=== PATIENT | male | born 1975 ===

== ENCOUNTER → 2020-04-10 14:27 | Outpatient (BNVA) | payer MEDICARE, MEDICAID, SELFPAY | PROVIDERS: Visit Provider Internal Medicine | DX: F11.99 Opioid use, unspecified with unspecified opioid-induced disorder (principal) | CPT/HCPCS: 96372; 99212; Q9991 ==

== ENCOUNTER → 2020-05-08 14:09 | Outpatient (BNVA) | payer MEDICARE, MEDICAID, SELFPAY | PROVIDERS: Visit Provider Internal Medicine | DX: F11.99 Opioid use, unspecified with unspecified opioid-induced disorder (principal) | CPT/HCPCS: 80305; 96372; 99211; Q9991 ==

== ENCOUNTER → 2020-05-27 15:20 | Outpatient (BNVA) | payer MEDICARE, MEDICAID, SELFPAY | PROVIDERS: Visit Provider Internal Medicine | DX: F11.99 Opioid use, unspecified with unspecified opioid-induced disorder (principal) | CPT/HCPCS: 80305; 96372; 99211; Q9992 ==

== ENCOUNTER → 2020-06-25 15:33 | Outpatient (BNVA) | payer MEDICARE, MEDICAID, SELFPAY | PROVIDERS: Visit Provider Internal Medicine | DX: F11.99 Opioid use, unspecified with unspecified opioid-induced disorder (principal) | CPT/HCPCS: 80305; 96372; 99211; Q9992 ==

== ENCOUNTER → 2020-07-23 15:22 | Outpatient (BNVA) | payer MEDICARE, MEDICAID, SELFPAY | PROVIDERS: Visit Provider Internal Medicine | DX: F11.99 Opioid use, unspecified with unspecified opioid-induced disorder (principal) | CPT/HCPCS: 80305; 96372; 99212; Q9992 ==

== ENCOUNTER → 2020-08-20 15:49 | Outpatient (BNVA) | payer MEDICARE, MEDICAID, SELFPAY | PROVIDERS: PCP Internal Medicine; Visit Provider Internal Medicine | DX: F11.99 Opioid use, unspecified with unspecified opioid-induced disorder (principal) | CPT/HCPCS: 80305; 96372; 99212; J1885; J2405; J3010; Q9992 ==

== ENCOUNTER 2020-09-17 08:10 | Outpatient (RCR) | payer MEDICARE, MEDICAID, SELFPAY | END 2020-09-25 09:46 | disposition home or self-care (01) | LOC: HO.WCC 08:10 | PROVIDERS: PCP Internal Medicine; Visit Provider Physician Assistant | DX: L84 Corns and callosities (principal); M21.372 Foot drop, left foot | CPT/HCPCS: 99212; Q9992 ==

== ENCOUNTER → 2020-09-17 15:34 | Outpatient (BNVA) | payer MEDICARE, MEDICAID, SELFPAY | PROVIDERS: PCP Internal Medicine; Visit Provider Internal Medicine | DX: F11.21 Opioid dependence, in remission (principal) | CPT/HCPCS: 80305; 96372; 99212; Q9992 ==

== ENCOUNTER → 2020-10-15 15:36 | Outpatient (BNVA) | payer MEDICARE, MEDICAID, SELFPAY | PROVIDERS: Visit Provider Internal Medicine | DX: F11.21 Opioid dependence, in remission (principal) | CPT/HCPCS: 99212 ==

== ENCOUNTER → 2020-10-29 15:29 | Outpatient (BNVA) | payer MEDICARE, MEDICAID, SELFPAY | PROVIDERS: Visit Provider Internal Medicine | DX: F11.20 Opioid dependence, uncomplicated (principal) | CPT/HCPCS: 80305; 99212 ==

== ENCOUNTER → 2020-11-26 15:17 | Outpatient (BNVA) | payer MEDICARE, MEDICAID, SELFPAY | PROVIDERS: Visit Provider Internal Medicine | DX: F11.21 Opioid dependence, in remission (principal) | CPT/HCPCS: 99212 ==

== ENCOUNTER → 2020-12-24 15:31 | Outpatient (BNVA) | payer MEDICARE, MEDICAID, SELFPAY | PROVIDERS: Visit Provider Internal Medicine | DX: Z13.89 Encounter for screening for other disorder (principal) | CPT/HCPCS: 80305; 99211 ==

== ENCOUNTER 2021-01-17 15:23 | Outpatient (AMB) | payer MEDICARE, MEDICAID, SELFPAY ==
[2021-01-17 15:40] VITALS: BP 120/80; PULSE 86
--- NOTE | 2021-01-17 15:40 | A.OFFVIS_ITS ---
Intake Vital Signs 01/17/21 15:40 Height 6 ft 1 in BP 120/80 Blood Pressure Location Rt brachial Position Sitting Pulse 86 Intake Visit Reasons: 6 month follow up no showed last appt Intake Note: Patient presents today for a follow up Peer Support Specialist Required: No Accompanied by: Family/Other Allergies penicillin V Allergy (Intermediate, Verified 08/04/23 16:10) hives naloxone Adverse Reaction (Intermediate, Uncoded 08/04/23 16:10) excessive night sweats HPI HPI Comments History of Present Illness Details Patient status post laser his prostate, patient's urgency is improved with Cialis. Patient with anuresis on DDAVP. Patient needs a refill on Cialis father today. Had to explain retrograde ejaculation to them has a side effect of the laser prostatectomy. All questions answered informed consent obtained. Patient's PSA is stable history of family with prostate cancer. Patient with a history of stones but a negative last ultrasound. [facility] Medical History (Updated 08/04/23 @ 18:06 by Gertrudis Culver MD) Chronic foot ulcer Helicobacter pylori (H. pylori) Lumbar pain Abnormal barium swallow Mild major depression Chest pain Lymphadenopathy Headache Dysphagia Wound of left foot Dyslipidemia Urinary incontinence Insomnia Back pain Neuropathy Opioid use disorder Surgical History Hx of colonoscopy History of esophagogastroduodenoscopy (EGD) History of cystoscopy History of carpal tunnel surgery of left wrist History of prostate surgery Hx of prostate biopsy Hx of hernia repair Family History Father Prostate cancer Social History Household Members: Spouse Housing: House Do you presently have visiting nurse or other home services: No Alcohol intake: never Patient Tobacco Use Status: Former Tobacco user Quit Date: 5 months ago Cigarette Packs Per Day: 1 e-Cigarette/Vaping Use: Former Use Second Hand Smoke Exposure: No Substance Use Type: Marijuana service: No Current occupational status: disabled Cognitive needs: Yes (cane) Hearing needs: No Vision needs: No Review of Systems Const Denies chills and Denies fever(s) Card Reports no additional complaints and Denies syncope Resp Denies cough GI Denies abdominal pain and Denies heartburn Reports as per HPI and Denies change in libido Neuro Denies syncope Psych Denies change in libido Endo Denies change in libido Physical Exam Vital Signs: Last Vital Signs Pulse 86 01/17/21 15:40 BP 120/80 01/17/21 15:40 Const General: cooperative, healthy appearing, comfortable and no acute distress Orientation/consciousness: patient oriented x3 HENMT Face and sinus: Yes normal facial exam Mouth: moist mucous membranes Neck Neck: Yes normal visual inspection, Yes full ROM and Yes trachea midline Chest Chest palpation & inspection: normal inspection of the chest Resp Effort & Inspection: normal respiratory effort, able to speak in complete sentences and no respiratory distress GI Inspection: Yes normal to inspection Back/Spine/Pelvis Cervical Spine: normal cervical lordosis Thoracic/Lumbar Spine: thoracic and lumbar spine normal to inspection Skin General skin exam: no rashes or lesions noted Neuro General: patient oriented x3, gait normal, tone normal and moves all extremities Extrem General: Yes normal to inspection and Yes capillary refill normal Office Procedures Post Void Residual Post Residual Void Post Void Residual (PVR): 321 19806-Kaak Void Residual by ultrasound Results AMB Urinalysis Dipstick UR Leukocytes Negative Last Edit by SHEYLA Lopez on 01/17/21 15:59 UR Nitrite Negative Last Edit by SHEYLA Lopez on 01/17/21 15:59 UR Urobilinogen Normal Last Edit by SHEYLA Lopez on 01/17/21 15:59 UR Protein Negative Last Edit by SHEYLA Lopez on 01/17/21 15:59 UR Ph 6.0 Last Edit by SHEYLA Lopez on 01/17/21 15:59 UR Blood Negative Last Edit by SHEYLA Lopez on 01/17/21 15:59 UR Specific [place] 1.015 Last Edit by SHEYLA Lopez on 01/17/21 15: 59 UR Ketone Negative Last Edit by SHEYLA Lopez on 01/17/21 15:59 UR Bilirubin Negative Last Edit by SHEYLA Lopez on 01/17/21 15:59 UR Glucose Negative Last Edit by SHEYLA Lopez on 01/17/21 15:59 Results Reviewed Results Reviewed: Laboratory Last Values Urine pH (Clinic) 6.0 01/17/21 15:55 Specific [place] (Clinic) 1.015 01/17/21 15:55 Ur Protein (Clinic) Negative 01/17/21 15:55 Ur Ketones (Clinic) Negative 01/17/21 15:55 Urine Blood (Clinic) Negative 01/17/21 15:55 Urine Nitrite Negative 01/17/21 15:55 Urine Bilirubin (Clinic) Negative 01/17/21 15:55 Urobilinogen (Clinic) Normal 01/17/21 15:55 Leukocyte Esterase (Clinic) Negative 01/17/21 15:55 Urine Glucose (Clinic) Negative 01/17/21 15:55 Assessment & Plan Assessment & Plan (1) Neurogenic urinary bladder disorder: Code(s): N31.9 - Neuromuscular dysfunction of bladder, unspecified Plan - Panda Muñoz MD: Six-month follow-up Patient Instructions: Imaging studies, laboratory and physical exam results were discussed and reviewed in detail. No major barriers to patient understanding were identified. An opportunity to ask questions regarding the treatment plan was provided. All questions were answered. The patient expressed understanding and agreement with the above treatment plan. The patient is aware they should contact our office by phone for worsening of their current condition or the appearance of new urologic symptoms. Compliance is encouraged with any medications and followup testing that is ordered. It is a privilege to participate in the urologic care of your patient. If you have any questions or concerns regarding treatment for the above conditions, or other urologic issues, please do not hesitate to contact me. The office telephone contact is [phone]. This note is constructed using voice recognition software. While every effort has been made to ensure accuracy metalworking specialist errors may have been included. Yours sincerely, Dr Panda Muñoz MD, [facility] - Urology Providers of Expert, Compassionate Care for the Genitourinary System Coding Level of Care Code Est Pt Level 3 (36382) Diagnoses Neurogenic urinary bladder disorder N31.9 CPT Codes Post Residual Void - PVR CPT Code: 43913-Majx Void Residual by ultrasound ([id number])
== END 2021-01-17 16:20 | disposition home or self-care (01) ==
LOC: HO.HUSH 15:23
PROVIDERS: Visit Provider Urology
DX: N31.9 Neuromuscular dysfunction of bladder, unspecified (principal)
CPT/HCPCS: 99499

== ENCOUNTER → 2021-01-17 15:23 | Outpatient (BNVA) | payer MEDICARE, MEDICAID, SELFPAY | PROVIDERS: Visit Provider Urology | DX: Z13.89 Encounter for screening for other disorder (principal) | CPT/HCPCS: 51798; 81002 ==

== ENCOUNTER 2021-01-18 08:17 | Outpatient (REF) | payer MEDICARE, MEDICAID, SELFPAY ==
[2021-01-18 09:34] LABS: Basophils Percent Auto 0.3 % (0-2); Imm Gran Abs Auto 0.01 X10*3/uL (0.00-0.03); Imm Gran Pct Auto 0.1 % (0.0-0.4); Red Cell Distribution Width 13.9 % (11.0-16.0)
[2021-01-18 09:36] LABS: Eosinophils Absolute Auto 0.2 X10*3/uL (0.0-0.4); Eosinophils Percent Auto 2.4 % (0-4); Hematocrit 39.8 % (42-52); Lymphocytes Absolute Auto 2.5 X10*3/uL (1.2-4.9); Lymphocytes Percent Auto 33.5 % (20-40); Mean Corpuscular HGB Conc 32.7 g/dl (31.0-36.0); Mean Corpuscular Hemoglobin 29.1 pg (27.0-33.0); Mean Platelet Volume 13.4 fL (9.4-12.4); Monocytes Absolute Auto 0.7 X10*3/uL (0.1-1.2); Monocytes Percent Auto 9.8 % (2-11); Neutrophils Absolute Auto 4.1 X10*3/uL (2.0-8.3); Neutrophils Percent Auto 53.9 % (45-73); Platelet Count 112 X10*3/uL (160-400); Red Blood Count 4.47 X10*6/uL (4.60-5.80); White Blood Count 7.6 X10*3/uL (4.8-10.8)
[2021-01-18 10:31] LABS: Alanine Aminotransferase 29 U/L (0-40); Albumin Level 4.3 g/dL (3.5-5.0); Alkaline Phosphatase 79 U/L (39-117); Anion Gap 11 (12-20); Aspartate Amino Transferase 26 U/L (5-37); Bilirubin Total 0.3 mg/dL (0.0-1.0); Blood Urea Nitrogen 13 mg/dL (9-16); Calcium 9.5 mg/dL (8.4-10.2); Carbon Dioxide 31 mmol/L (22-29); Chloride 103 mmol/L (96-108); Cholesterol 129 mg/dL; Estimated Glomerular Filt Rate > 60; Glucose Fasting 79 mg/dL (60-99); HDL Cholesterol 38 mg/dL; LDL Cholesterol Calculated 58 mg/dl; Potassium 4.6 mmol/L (3.3-5.1); Sodium 140 mmol/L (135-145); Total Protein 7.1 g/dL (6.5-8.0); Triglycerides 169 mg/dL
[2021-01-20 09:18] LABS: Folate 10.5 ng/mL (> or = 4.0); Vitamin B12 964 pg/mL (200-900)
[2021-01-22 18:12] LABS: Vitamin D 25-OH, D2 <4 ng/mL; Vitamin D 25-OH, D3 30 ng/mL; Vitamin D 25-OH, Total 30 ng/mL (30-100)
== END 2021-01-18 08:18 | disposition home or self-care (01) ==
LOC: HO.LAB 08:17
PROVIDERS: PCP Internal Medicine; Visit Provider Internal Medicine
DX: G62.9 Polyneuropathy, unspecified (principal); E78.5 Hyperlipidemia, unspecified; E55.9 Vitamin D deficiency, unspecified
CPT/HCPCS: 36415; 80053; 80061; 82306; 82607; 82746; 85025

== ENCOUNTER → 2021-01-20 14:19 | Outpatient (REF) | payer MEDICARE, MEDICAID, SELFPAY ==
--- NOTE | 2021-01-20 14:23 | ECG_ITS ---
Test Reason : CHEST PAIN Blood Pressure : / mmHG Vent. Rate : 061 BPM Atrial Rate : 061 BPM P-R Int : 176 ms QRS Dur : 108 ms QT Int : 406 ms P-R-T Axes : 057 054 042 degrees QTc Int : 408 ms Normal sinus rhythm Possible Left atrial enlargement Borderline ECG When compared with ECG of 27-SEP-2018 20:00, No significant change was found Referred By: Gertrudis Culver Electronically Signed By:MCKINLEY MARTINEZ MD
== END ==
LOC: HO.CARD 14:19
PROVIDERS: PCP Internal Medicine; Visit Provider Internal Medicine
DX: R07.9 Chest pain, unspecified (principal)
CPT/HCPCS: 93005

== ENCOUNTER → 2021-01-21 15:45 | Outpatient (BNVA) | payer MEDICARE, MEDICAID, SELFPAY | PROVIDERS: PCP Internal Medicine; Visit Provider Internal Medicine | DX: Z51.81 Encounter for therapeutic drug level monitoring (principal) | CPT/HCPCS: 99211 ==

== ENCOUNTER 2021-01-30 18:39 | Outpatient (REF) | payer MEDICARE, MEDICAID, SELFPAY ==
--- NOTE | ~2021-01-30 | MR_ITS ---
EXAMINATION: UNENHANCED MRI OF THE BRAIN CLINICAL INFORMATION: Headache. Unspecified. Self-reported mass near the neck which might be causing headaches. COMPARISON: CT head 04/12/2012. Chest radiograph 09/27/2018, chest radiograph 05/11/2018, whole-body bone scan 05/25/2016, MRI lumbar spine 05/22/2015. CT head 04/12/2012. TECHNIQUE: Routine unenhanced MRI of the brain obtained on a 1.5 [employer] MR platform. FINDINGS: A mild number scattered supratentorial punctate parenchymal T2 hyperintensities are noted predominantly in scattered bifrontal juxtacortical regions. No perivenular lesions are noted. The ventricles and sulci are normal in size and configuration. No intracranial hemorrhage, tumors or acute infarcts are identified. Susceptibility weighted images reveal no evidence of acute or chronic hemorrhage within the brain parenchyma. The craniocervical junction cerebellar tonsils are normal in appearance. No suspicious marrow abnormalities are identified. Normal flow-related signal intensity is identified within the major intracranial vessels and dural sinuses. Incidental note is made of a 2 mm diameter T2 hyperintensity which may represent a submucosal retention cyst within the right parasagittal nasopharynx. The orbits and globes are normal in appearance. No significant mucosal thickening or retained secretions are noted in association with the paranasal sinuses, mastoid air cells and middle ear cavities. MR/MR head/brain wo con IMPRESSION: 1. Small number of scattered punctate nonspecific foci (supratentorial white matter T2 hyperintensities) which may represent mild white matter chronic small vessel ischemic changes; otherwise, normal unenhanced MRI of the brain. 2. The patient-provided medical history refers to a neck mass which may be causing headaches. As clinically indicated, consider dedicated imaging of the neck and/or the mass. No findings are identified in the current exam to correlate with a clinical history of neck mass. Review of prior radiology examination reports does not identified statements which may correlate with a neck mass.
== END 2021-01-30 18:40 | disposition home or self-care (01) ==
LOC: HO.MRI 18:39
PROVIDERS: PCP Internal Medicine; Visit Provider Internal Medicine
DX: R51.9 Headache, unspecified (principal)
CPT/HCPCS: 70551

== ENCOUNTER 2021-01-31 08:46 | Outpatient (REF) | payer MEDICARE, MEDICAID, SELFPAY ==
--- NOTE | ~2021-01-31 | FL_ITS ---
EXAMINATION: FL BARIUM SWALLOW CLINICAL INFORMATION: Dysphagia. COMPARISON: None TECHNIQUE: Barium swallow examination was performed using fluoroscopic evaluation in addition to multiple fluoroscopic spot views. The patient was imaged both upright and prone and using both thick and thin sulfate along with effervescent granules. Fluoroscopy time: 2.1 minutes DAP: 9.728 Gycm2 Images: 50 FINDINGS: Following oral administration of thick barium and barium-coated turkey, apparently there was normal but slow propagation of the bolus from the oral cavity through the pharynx, esophagus into the stomach without any evidence of obstruction, narrowing or stricture. On placing the patient supine and prone lying, there is good distention of the esophagus without intraluminal filling defects or extrinsic impression. No gastroesophageal reflux or hiatal hernia in lying position. FL/FL barium swallow IMPRESSION: Unremarkable barium swallow on upright and lying views. Intrinsic mass or extrinsic compression of the esophagus.
== END 2021-01-31 08:47 | disposition home or self-care (01) ==
LOC: HO.XRAY 08:46
PROVIDERS: PCP Internal Medicine; Visit Provider Internal Medicine
DX: R13.10 Dysphagia, unspecified (principal)
CPT/HCPCS: 74220

== ENCOUNTER 2021-02-13 15:30 | Outpatient (REF) | payer MEDICARE, MEDICAID, SELFPAY ==
--- NOTE | ~2021-02-13 | US_ITS ---
EXAMINATION: US SOFT TISSUE OF THE NECK CLINICAL INFORMATION: Generalized enlarged lymph nodes. COMPARISON: None. TECHNIQUE: Linear transducer grayscale and color Doppler examination of the neck. FINDINGS: There are benign-appearing bilateral cervical lymph nodes measuring up to 1.1 x 0.5 x 0.5 cm in the left submandibular region and 1.1 x 0.4 x 0.8 cm within the superior right cervical region. No cortical thickening or lymphadenopathy. No inflammatory change. No soft tissue mass or fluid collection. US/US soft tiss head and/or neck IMPRESSION: Bilateral, benign-appearing nonenlarged cervical lymph nodes.
== END 2021-02-13 15:31 | disposition home or self-care (01) ==
LOC: HO.US 15:30
PROVIDERS: PCP Internal Medicine; Visit Provider Internal Medicine
DX: R59.1 Generalized enlarged lymph nodes (principal)
CPT/HCPCS: 76536

== ENCOUNTER → 2021-02-18 15:44 | Outpatient (BNVA) | payer MEDICARE, MEDICAID, SELFPAY | PROVIDERS: PCP Internal Medicine; Visit Provider Internal Medicine | DX: F11.20 Opioid dependence, uncomplicated (principal) | CPT/HCPCS: 80305; 99212 ==

== ENCOUNTER → 2021-03-25 15:44 | Outpatient (BNVA) | payer MEDICARE, MEDICAID, SELFPAY | PROVIDERS: PCP Internal Medicine; Visit Provider Internal Medicine | DX: F11.21 Opioid dependence, in remission (principal); Z51.81 Encounter for therapeutic drug level monitoring; Z79.899 Other long term (current) drug therapy | CPT/HCPCS: 80305; 99212 ==

== ENCOUNTER → 2021-04-22 15:52 | Outpatient (BNVA) | payer MEDICARE, MEDICAID, SELFPAY | PROVIDERS: Visit Provider Internal Medicine | DX: F11.21 Opioid dependence, in remission (principal) | CPT/HCPCS: 99212 ==

== ENCOUNTER → 2021-05-20 15:29 | Outpatient (BNVA) | payer MEDICARE, MEDICAID, SELFPAY | PROVIDERS: Visit Provider Internal Medicine | DX: F11.21 Opioid dependence, in remission (principal); Z51.81 Encounter for therapeutic drug level monitoring; Z79.899 Other long term (current) drug therapy | CPT/HCPCS: 80305; 99212 ==

== ENCOUNTER 2021-05-28 14:07 | Outpatient (REF) | payer MEDICARE, MEDICAID, SELFPAY ==
[2021-05-30 07:20] LABS: H Pylori Breath Test Positive (Negative)
== END 2021-05-28 14:08 | disposition home or self-care (01) ==
LOC: HO.LNP 14:07
PROVIDERS: Referring Provider Internal Medicine; Visit Provider Nurse Practitioner Family
DX: R13.14 Dysphagia, pharyngoesophageal phase (principal); K21.9 Gastro-esophageal reflux disease without esophagitis; R93.89 Abnormal findings on diagnostic imaging of other specified body structures; E78.5 Hyperlipidemia, unspecified; U07.0 Vaping-related disorder; F33.0 Major depressive disorder, recurrent, mild; F11.99 Opioid use, unspecified with unspecified opioid-induced disorder; Z11.0 Encounter for screening for intestinal infectious diseases; Z87.891 Personal history of nicotine dependence; Z80.42 Family history of malignant neoplasm of prostate; Z88.1 Allergy status to other antibiotic agents; Z88.0 Allergy status to penicillin; Z88.8 Allergy status to other drugs, medicaments and biological substances; Z79.899 Other long term (current) drug therapy
CPT/HCPCS: 83013; 99202

== ENCOUNTER 2021-06-02 13:31 | Outpatient (REF) | payer MEDICARE, MEDICAID, SELFPAY ==
--- NOTE | ~2021-06-02 | XR_ITS ---
EXAMINATION: XR LUMBOSACRAL SPINE CLINICAL INFORMATION: Chronic low back pain. COMPARISON: 05/25/2019 TECHNIQUE: 4views of the lumbosacral spine. FINDINGS: Again seen are degenerative changes most prominent from T11 through L3. There is anterior wedging of the L2 vertebral body unchanged from prior with some milder wedging at T12 and L1 as well. There is marked end plate sclerosis present. Marked disc space narrowing is at L1-L2. Compared with the prior study, there has been no interval change. XR/XR lumbar spine 2-3V IMPRESSION: Degenerative changes lower thoracic and upper lumbar spine with unchanged compression deformity L2 and to a lesser extent T12 and L1. No acute finding.
[2021-06-02 13:50] LABS: MANUAL DIFF FLAG NO
[2021-06-02 14:54] LABS: Basophils Percent Auto 0.4 % (0-2); Eosinophils Absolute Auto 0.1 X10*3/uL (0.0-0.4); Eosinophils Percent Auto 1.6 % (0-4); Hematocrit 37.7 % (42.0-52.0); Hemoglobin 12.4 g/dl (14.0-18.0); Imm Gran Abs Auto 0.01 X10*3/uL (0.00-0.03); Imm Gran Pct Auto 0.1 % (0.0-0.4); Lymphocytes Absolute Auto 2.9 X10*3/uL (1.2-4.9); Mean Corpuscular HGB Conc 32.9 g/dl (31.0-36.0); Mean Corpuscular Hemoglobin 29.2 pg (27.0-33.0); Mean Corpuscular Volume 88.7 fL (80.0-98.0); Mean Platelet Volume 13.2 fL (9.4-12.4); Monocytes Absolute Auto 0.6 X10*3/uL (0.1-1.2); Monocytes Percent Auto 9.1 % (2-11); Neutrophils Absolute Auto 3.1 x10*3/uL (2.0-8.3); Neutrophils Percent Auto 45.8 % (45-73); Platelet Count 117 X10*3/uL (160-400); Red Blood Count 4.25 X10*6/uL (4.60-5.80); Red Cell Distribution Width 13.9 % (11.0-16.0); White Blood Count 6.8 X10*3/uL (4.8-10.8)
[2021-06-02 15:17] LABS: Alanine Aminotransferase 20 U/L (0-40); Albumin Level 4.3 g/dL (3.5-5.0); Alkaline Phosphatase 76 U/L (39-117); Anion Gap 11 (12-20); Aspartate Amino Transferase 22 U/L (5-37); Bilirubin Total 0.4 mg/dL (0.0-1.0); Blood Urea Nitrogen 11 mg/dL (9-16); Calcium 9.6 mg/dL (8.4-10.2); Carbon Dioxide 27 mmol/L (22-29); Chloride 104 mmol/L (96-108); Cholesterol 164 mg/dL; Estimated Glomerular Filt Rate > 60; Glucose Fasting 70 mg/dL (60-99); HDL Cholesterol 42 mg/dL; LDL Cholesterol Calculated 102 mg/dl; Potassium 4.2 mmol/L (3.3-5.1); Sodium 138 mmol/L (135-145); Total Protein 7.1 g/dL (6.5-8.0); Triglycerides 103 mg/dL
== END 2021-06-02 13:32 | disposition home or self-care (01) ==
LOC: HO.LAB 13:31
PROVIDERS: Visit Provider Internal Medicine
DX: M54.50 Low back pain, unspecified (principal); D64.9 Anemia, unspecified; E78.5 Hyperlipidemia, unspecified
CPT/HCPCS: 36415; 72100; 80053; 80061; 85025

== ENCOUNTER → 2021-06-17 15:33 | Outpatient (BNVA) | payer MEDICARE, MEDICAID, SELFPAY | PROVIDERS: PCP Internal Medicine; Visit Provider Internal Medicine | DX: F11.20 Opioid dependence, uncomplicated (principal) | CPT/HCPCS: 80305; 99212 ==

== ENCOUNTER 2021-07-03 09:13 | Outpatient (REF) | payer MEDICARE, MEDICAID, SELFPAY ==
[2021-07-03 10:30] LABS: COVID-19 Test Positive (Negative); IDNOW Serial# 55D5AD1C
== END 2021-07-03 09:14 | disposition home or self-care (01) ==
LOC: HO.LAB 09:13
PROVIDERS: Visit Provider Internal Medicine
DX: Z20.822 Contact with and (suspected) exposure to COVID-19 (principal)
CPT/HCPCS: 36415; 87635; C9803

== ENCOUNTER 2021-07-10 14:54 | Outpatient (REF) | payer MEDICARE, MEDICAID, SELFPAY ==
--- NOTE | ~2021-07-10 | CT_ITS ---
EXAMINATION: CT SOFT TISSUE NECK WITH CONTRAST CLINICAL INFORMATION: Dysphagia. COMPARISON: None TECHNIQUE: Following the intravenous administration of 60 mL of Omnipaque 350 intravenous contrast, helical imaging was performed in the axial plane with generation of coronal and sagittal reformatted images. A marker was placed along the midline anterior neck. This CT examination was performed using dose optimization techniques as appropriate, variously including the following: *Automated exposure control *Adjustment of mA and/or kV according to patient size (this includes techniques or standardized protocols for targeted exams where dose is matched to indication/reason for exam; i.e. extremities or head) *Use of iterative reconstruction technique DLP: 304 mGy-cm FINDINGS: No cervical adenopathy is identified. The parotid glands are homogeneous in attenuation. The submandibular glands are normal. No contour abnormality or pathologic enhancement is seen within the oral cavity or pharyngeal mucosal space. The laryngeal structures are normal. The parapharyngeal fat is preserved. The carotid sheath vasculature opacifies normally. No extramucosal soft tissue mass or fluid collection is seen. No retropharyngeal fluid collection is seen. The thyroid gland is normal. The superior mediastinum is unremarkable. The lung apices are clear. There is mild mucoperiosteal thickening in the right maxillary sinus. The rest of the paranasal sinuses and mastoid air cells are well aerated. The temporomandibular joints are normal. No periapical disease is identified. No osseous abnormalities are seen. The imaged portions of the brain parenchyma are unremarkable. CT/CT soft tissue neck w con IMPRESSION: Unremarkable CT neck with contrast except for chronic right maxillary sinus inflammatory changes. There is no mass effect or compression of the cervical or upper thoracic esophagus.
[2021-07-10] MEDS: iohexoL 350 MG/ML 100 ML INFUS..BTL IV (15:24)
== END 2021-07-10 14:55 | disposition home or self-care (01) ==
LOC: HO.CT 14:54
PROVIDERS: Visit Provider Nurse Practitioner Family
DX: R13.14 Dysphagia, pharyngoesophageal phase (principal); R93.3 Abnormal findings on diagnostic imaging of other parts of digestive tract
CPT/HCPCS: 70491; Q9967

== ENCOUNTER → 2021-07-15 14:37 | Outpatient (BNVA) | payer MEDICARE, MEDICAID, SELFPAY | PROVIDERS: PCP Internal Medicine; Visit Provider Internal Medicine | DX: F11.21 Opioid dependence, in remission (principal); Z51.81 Encounter for therapeutic drug level monitoring; Z79.899 Other long term (current) drug therapy | CPT/HCPCS: 99212 ==

== ENCOUNTER → 2021-07-18 12:45 | Outpatient (BNVA) | payer MEDICARE, MEDICAID, SELFPAY | PROVIDERS: PCP Internal Medicine; Referring Provider Internal Medicine; Visit Provider Nurse Practitioner Family | DX: R13.14 Dysphagia, pharyngoesophageal phase (principal); A04.8 Other specified bacterial intestinal infections; K21.9 Gastro-esophageal reflux disease without esophagitis | CPT/HCPCS: 99212 ==

== ENCOUNTER 2021-08-07 08:56 | Day surgery (SDC) | payer MEDICARE, MEDICAID, SELFPAY ==
[2021-08-01 14:10] VITALS: BMI 20.9
--- NOTE | 2021-08-06 09:45 | HO.ANESPROP2 ---
Documented by User: Irene Angel NP 08/06/21 09:52 HPI - Anesthesia Eval Consult details Narrative: 46yo M for Upper Endoscopy and Colonoscopy h/o drug abuse - buprenorphine daily PMFSH Active Problems Active Problems: All Active Problems (Updated 07/18/21 @ 14:09 by Arleen Logan [facility]) Severe opioid dependence in sustained remission on maintenance therapy (Acute) Helicobacter pylori (H. pylori) (Acute) Lumbar pain (Acute) Abnormal barium swallow (Acute) Mild major depression (Acute) Chest pain (Acute) Lymphadenopathy (Acute) Headache (Acute) Dysphagia (Acute) Wound of left foot (Acute) Dyslipidemia (Acute) Urinary incontinence (Acute) Insomnia (Acute) Back pain (Acute) Neuropathy (Acute) Opioid use disorder (Acute) Past Medical History Medical History Abnormal barium swallow Back pain Chest pain Dyslipidemia Dysphagia Headache Helicobacter pylori (H. pylori) Insomnia Lumbar pain Lymphadenopathy Mild major depression Neuropathy Opioid use disorder Urinary incontinence Wound of left foot Family History Family History Father Prostate cancer Surgical History Surgical History History of carpal tunnel surgery of left wrist History of cystoscopy History of prostate surgery Hx of hernia repair Hx of prostate biopsy Social History Social History Housing: House Alcohol intake: never Patient Tobacco Use Status: Former Tobacco user Quit Date: 5 months ago Cigarette Packs Per Day: 1 e-Cigarette/Vaping Use: Currently Using Second Hand Smoke Exposure: No Use of substances other than those prescribed or required for medical reasons: Yes Substance Use Frequency: Daily Are you DNR?: No Advance Directives: No Advance Directives Information Provided: Yes service: No Current occupational status: disabled Meds Allergies Allergy/AdvReac Type Severity Reaction Status Date / Time penicillin V Allergy Intermediate hives Verified 07/18/21 13:00 naloxone AdvReac Intermediate excessive Uncoded 07/18/21 13:00 night sweats Home Medications Medication Instructions Recorded Confirmed Last Taken Type gabapentin 800 mg tablet mg PO 09/04/20 05/19/21 08/07/21 05:30 History mirtazapine 15 mg tablet mg PO 09/04/20 05/19/21 Unknown History olanzapine 2.5 mg tablet mg PO 09/04/20 05/19/21 Unknown History pregabalin 150 mg capsule mg PO 09/04/20 05/19/21 08/07/21 05:30 History venlafaxine 150 mg mg PO 09/04/20 05/19/21 Unknown History capsule,extended release 24 hr Exam Exam Date and Time: August 06, 2021 0945 Height,Weight and Vital Signs: Height 6 ft 1 in Weight 71.8 kg Pertinent Lab Results Pertinent Lab Results: Laboratory Tests 06/02/21 06/02/21 13:46 13:46 WBC 6.8 Hgb 12.4 L Hct 37.7 L Plt Count 117 L Sodium 138 Potassium 4.2 Chloride 104 Carbon Dioxide 27 BUN 11 Creatinine 0.75 Narrative Narrative: EKG 01/2021 Vent. Rate : 061 BPM ? ? Atrial Rate : 061 BPM ?? P-R Int : 176 ms? QRS Dur : 108 ms ? ? QT Int : 406 ms ? ? ? P-R-T Axes : 057 054 042 degrees ?? QTc Int : 408 ms ? Normal sinus rhythm Possible Left atrial enlargement Borderline ECG When compared with ECG of 27-SEP-2018 20:00, No significant change was found Assessment and Plan Assessment Anesthesia Assessment: Chart Reviewed Documented by User: Laura Davenport MD 08/07/21 10:30 [facility] Past Medical History Medical History Abnormal barium swallow Back pain Chest pain Dyslipidemia Dysphagia Headache Helicobacter pylori (H. pylori) Insomnia Lumbar pain Lymphadenopathy Mild major depression Neuropathy Opioid use disorder Urinary incontinence Wound of left foot Functional capacity: uses cane/walker Family History Family History Father Prostate cancer Family history of problems with anesthesia: No Surgical History Surgical History History of carpal tunnel surgery of left wrist History of cystoscopy History of prostate surgery Hx of hernia repair Hx of prostate biopsy History of Problems with Anesthesia: No Social History Social History Housing: House Alcohol intake: never Patient Tobacco Use Status: Former Tobacco user Quit Date: 5 months ago Cigarette Packs Per Day: 1 e-Cigarette/Vaping Use: Currently Using Second Hand Smoke Exposure: No Use of substances other than those prescribed or required for medical reasons: Yes Substance Use Frequency: Daily Are you DNR?: No Advance Directives: No Advance Directives Information Provided: Yes service: No Current occupational status: disabled Meds Allergies Allergy/AdvReac Type Severity Reaction Status Date / Time penicillin V Allergy Intermediate hives Verified 07/18/21 13:00 naloxone AdvReac Intermediate excessive Uncoded 07/18/21 13:00 night sweats Home Medications Medication Instructions Recorded Confirmed Last Taken Type gabapentin 800 mg tablet mg PO 09/04/20 05/19/21 08/07/21 05:30 History mirtazapine 15 mg tablet mg PO 09/04/20 05/19/21 Unknown History olanzapine 2.5 mg tablet mg PO 09/04/20 05/19/21 Unknown History pregabalin 150 mg capsule mg PO 09/04/20 05/19/21 08/07/21 05:30 History venlafaxine 150 mg mg PO 09/04/20 05/19/21 Unknown History capsule,extended release 24 hr Exam Airway Mallampati Class: II TM Dist: >3cm Neck ROM: Full Heart: RRR Lungs: CTA Assessment and Plan Final Anesthetic Review Family History of Problems with Anesthesia: No History of Problems with Anesthesia: No ASA Class: III Final Preanesthetic Review: No Changes in Pt Med Stat, Meds/Allgs Chart Reviewed, Consent Obtained/Reviewed and Anes Risks/Benef Reviewed Patient Risk: Low Procedure Risk: Low Anesthetic Plan Anesthetic Plan: MAC: Disposition: Standard PACU
--- NOTE | 2021-08-07 09:07 | P.BOP_ITS ---
Brief Operative Note Date of Service: 08/07/21 Pre-op diagnosis: dysphagia, colon cancer screening Post-op diagnosis: same Procedure: see op note Surgeon: Shamar Gallego MD Anesthesia: MAC Was an Computer Systems Manager used for this Procedure?: No Estimated blood loss (mL): 0 Condition: stable Disposition: PACU
--- NOTE | 2021-08-07 09:07 | MHC.SHP ---
Pre-Procedural Eval Section A Date of Service: 08/07/21 Section B Chief Complaint: Screening, GERD Details of Present Illness: father with colon cancer Relevant Family History (Specify if Yes): Yes Relevant Social History: Other (specify) (hx of drug abuse) Present Medications: see Short Stay Collaborative assessment Medical History: Significant History (Abnormal barium swallow Back pain Chest pain Dyslipidemia Dysphagia Headache Helicobacter pylori (H. pylori) Insomnia Lumbar pain Lymphadenopathy Mild major depression Neuropathy Opioid use disorder Urinary incontinence Wound of left foot) History of Previous Operations: Relevant previous surgery/procedure and date(s) (History of carpal tunnel surgery of left wrist History of cystoscopy History of prostate surgery Hx of hernia repair Hx of prostate biopsy) Allergies: Allergies Allergy/AdvReac Type Severity Reaction Status Date / Time penicillin V Allergy Intermediate hives Verified 07/18/21 13:00 naloxone AdvReac Intermediate excessive Uncoded 07/18/21 13:00 night sweats Review of Systems Sugical H&P ROS: Negative: Constitution, Cardiovascular, Respiratory, Neurological, Psychiatric, Hem-Onc, Allergic/Immunologic, Gastrointestinal, Genitourinary, Musculoskeletal, Integumentary, Endocrine and Eyes/Ears/Nose/Throat Exam Surgical H&P Exam: Normal: HEENT, Normal: Heart, Normal: Lungs, Normal: Extremities, Normal: Abdomen and Normal: Neurological and Not Evaluated: Skin (++ tatoos) Plan Diagnosis/Plan: Unchanged I have reviewed the history and physical and performed a pertinent physical examination on my patient. No changes have occurred unless specified.
[2021-08-07 09:18] VITALS: BP 126/70; PULSE 76; RESP 16; TEMP 37.1; O2SAT 97
[2021-08-07] MEDS: Lactated Ringers 1,000 ML 100 ML IVCONT (09:36)
--- NOTE | 2021-08-07 09:59 | W.PM.OPN ---
Operative Note Operative Note Date of Service: 08/07/21 Narrative: Operative Information Procedure Description: EGD, Colonoscopy FLEXIBLE TRANSORAL UPPER GASTROINTESTINAL ENDOSCOPY AND COLONOSCOPY PROCEDURE NOTE UPPER ENDOSCOPY Consent: Indications for the procedure and potential complications of bleeding, perforation, reaction to medications and missed diagnosis were discussed with the patient and informed consent was obtained. Instrument: Olympus GIF H 190 J mid size upper endoscope Monitoring: Vital signs and clinical assessment, continuous EKG monitoring, Pulse oximetry, Carbon Dioxide monitoring and blood pressure monitoring were done throughout the procedure. Procedure: The patient was placed in the left lateral decubitis position and pre-procedure medications were administered and a bite block was placed. The endoscope was inserted into the mouth and advanced under direct vision to the third part of duodenum. A careful inspection was made as the upper endoscope was withdrawn including a retroflexed examination of the proximal stomach; Findings and interventions are described below. Findings: Larynx:normal Esophagus: GE junction at 40 cm, diaphragm hiatus at 40 cm, scattered white plaques consistent with lucy, random esophageal bx taken. Also savary dilation done with 16 mm bougie, no tears noted Stomach: patchy erythematous mucosa. Biopsies were obtained. Grade 2 flap valve on retroflexed examination of the cardia. Duodenum: PAtchy erythema, bx taken Intervention: Biopsies as noted above, savary dilation COLONOSCOPY Instrument: Olympus variable stiffness pediatric scope 190L Colonoscopy Monitoring: Vital signs and clinical assessment, continuous EKG monitoring, Pulse oximetry, Carbon Dioxide monitoring and blood pressure monitoring were done throughout the procedure. Colon withdrawal time was 18 minutes. Procedure: The patient was placed in the left lateral decubitis position and pre-procedure medications were administered. After a digital rectal examination of the ano-rectum, the video colonoscope was inserted into the rectum and advanced through the colon to the cecum/TI. The colonoscope was slowly withdrawn in a retrograde panoramic fashion and the colon mucosa was carefully examined including a retroflexed view of the rectum. Findings and interventions are described below. Procedure Difficulty:moderate due to poor prep Findings: Terminal Ileum-not intubated Cecum:normal Ascending Colon: 10-12 mm sessile polyp lesion removed with hot snare and retrieved, 1 x clip applied to close defect. Transverse Colon -normal Descending Colon:normal Sigmoid Colon: normal Rectum: Retroflexion with small internal hemorrhoids, grade I Anorectum - normal Colon preparation: [place] Bowel Preparation Scale Right colon; 2 Transverse colon: 1 Left colon; 1 (0 = Unprepared colon segment with mucosa not seen due to solid stool that cannot be cleared. 1 = Portion of mucosa of the colon segment seen, but other areas of the colon segment not well seen due to staining, residual stool and/or opaque liquid. 2 = Minor amount of residual staining, small fragments of stool and/or opaque liquid, but mucosa of colon segment seen well. 3 = Entire mucosa of colon segment seen well with no residual staining, small fragments of stool or opaque liquid) Impression and Post Procedure Diagnosis: Endoscopy Findings: esophageal candidasis gastritis duodenitis Colonoscopy Findings: polyp internal hemorrhoids poor prep Plan: Await Pathology results Repeat Colonoscopy in 1 year or earlier if clinically indicated High fiber diet leaflet avoid straining at stool, epsom salts and sitz bath, anusol supps or cream 2 weeks of fluconazole Above findings were reviewed with the patient and relevant handouts were provided if indicated.
[2021-08-07 11:19] VITALS: BP 119/59; PULSE 76; RESP 16; TEMP 36.4; O2SAT 95
[2021-08-07 11:32] VITALS: BP 144/80; PULSE 66; RESP 16
[2021-08-07 11:47] VITALS: BP 153/84; PULSE 68; RESP 16; TEMP 36.5; O2SAT 98
--- NOTE | 2021-08-07 12:55 | HO.POSTANES ---
Post Anesthesia Evaluation Post Anesthesia Evaluation Vital Signs: Vital Signs Temp Pulse Resp BP Pulse Ox 08/07/21 11:47 97.7 F 68 16 153/84 H 98 08/07/21 11:32 66 16 144/80 H 08/07/21 11:19 97.6 F 76 16 119/59 L 95 08/07/21 09:18 98.8 F 76 16 126/70 97 Anesthesia: Monitored Mental Status: Awake Pain Control: Satisfactory Hydration: Adequate Anesthesia-Related Issues: No Anes. Related Issues
--- NOTE | 2021-08-07 12:56 | HO.POSTANES ---
Post Anesthesia Evaluation Post Anesthesia Evaluation Vital Signs: Vital Signs Temp Pulse Resp BP Pulse Ox 08/07/21 11:47 97.7 F 68 16 153/84 H 98 08/07/21 11:32 66 16 144/80 H 08/07/21 11:19 97.6 F 76 16 119/59 L 95 08/07/21 09:18 98.8 F 76 16 126/70 97 Anesthesia: Monitored Mental Status: Awake Pain Control: Satisfactory Nausea/Vomiting: None Hydration: Adequate Anesthesia-Related Issues: No Anes. Related Issues
== END 2021-08-07 12:36 | disposition home or self-care (01) ==
PROVIDERS: PCP Internal Medicine; Visit Provider Internal Medicine Gastroenterology
PROC: (CPT 45385; principal; 2021-08-07 10:10)
DX: Z12.11 Encounter for screening for malignant neoplasm of colon (principal); K63.5 Polyp of colon; K64.0 First degree hemorrhoids; R93.3 Abnormal findings on diagnostic imaging of other parts of digestive tract; R13.14 Dysphagia, pharyngoesophageal phase; A04.8 Other specified bacterial intestinal infections; K21.00 Gastro-esophageal reflux disease with esophagitis, without bleeding; B37.81 Candidal esophagitis; K29.50 Unspecified chronic gastritis without bleeding; K29.80 Duodenitis without bleeding; K44.9 Diaphragmatic hernia without obstruction or gangrene; R59.1 Generalized enlarged lymph nodes; E78.5 Hyperlipidemia, unspecified; F32.0 Major depressive disorder, single episode, mild; Z88.0 Allergy status to penicillin; Z79.899 Other long term (current) drug therapy; F11.21 Opioid dependence, in remission; Z88.8 Allergy status to other drugs, medicaments and biological substances; Z87.891 Personal history of nicotine dependence
CPT/HCPCS: 45385; 43248; 43239; 88305; 88312; 88342; C1769; J2250

== ENCOUNTER → 2021-08-20 14:23 | Outpatient (BNVA) | payer MEDICARE, MEDICAID, SELFPAY | PROVIDERS: PCP Internal Medicine; Referring Provider Internal Medicine; Visit Provider Nurse Practitioner Family | DX: K21.9 Gastro-esophageal reflux disease without esophagitis (principal); R13.14 Dysphagia, pharyngoesophageal phase; A04.8 Other specified bacterial intestinal infections; Z98.890 Other specified postprocedural states | CPT/HCPCS: 99212 ==

== ENCOUNTER → 2021-11-12 13:43 | Outpatient (BNVA) | payer MEDICARE, MEDICAID, SELFPAY | PROVIDERS: PCP Internal Medicine; Visit Provider Urology | DX: N40.1 Benign prostatic hyperplasia with lower urinary tract symptoms (principal); R33.9 Retention of urine, unspecified | CPT/HCPCS: 51798; 99212 ==

== ENCOUNTER 2022-01-15 18:01 | Emergency (ER) | payer MEDICARE, MEDICAID, SELFPAY ==
--- NOTE | ~2022-01-15 | XR_ITS ---
EXAMINATION: XR ANKLE, LEFT CLINICAL INFORMATION: Infected wound left heel COMPARISON: 01/31/2020 TECHNIQUE: AP, lateral, and mortise views of the left ankle. FINDINGS: Osseous alignment is anatomic. No acute fracture is seen. Soft tissue swelling is suspected overlying the posterior calcaneus, without appreciable soft tissue gas or radiopaque foreign body. XR/XR ankle LT 2V IMPRESSION: Soft tissue swelling overlying the posterior calcaneus.
[2022-01-15 19:34] VITALS: BP 151/88; PULSE 82; RESP 16; TEMP 37.4; O2SAT 98; BMI 21.1
[2022-01-15 19:55] LABS: Hemoglobin 12.1 g/dl (14.0-18.0); Red Cell Distribution Width 13.7 % (11.0-16.0)
[2022-01-15 20:01] LABS: Hematocrit 35.7 % (42.0-52.0); Mean Corpuscular HGB Conc 33.9 g/dl (31.0-36.0); Mean Corpuscular Hemoglobin 29.4 pg (27.0-33.0); Mean Corpuscular Volume 86.9 fL (80.0-98.0); Mean Platelet Volume 12.5 fL (9.4-12.4); Platelet Count 118 X10*3/uL (160-400); Red Blood Count 4.11 X10*6/uL (4.60-5.80)
[2022-01-15 20:06] LABS: WBC ABN SCTR FOR CBC 1
[2022-01-15 20:07] LABS: White Blood Count 9.1 X10*3/uL (4.8-10.8)
[2022-01-15 20:10] LABS: Alanine Aminotransferase 27 U/L (0-40); Albumin Level 4.7 g/dL (3.5-5.0); Alkaline Phosphatase 92 U/L (39-117); Anion Gap 13 (12-20); Aspartate Amino Transferase 25 U/L (5-37); Bilirubin Total 0.4 mg/dL (0.0-1.0); Blood Urea Nitrogen 6 mg/dL (9-16); Calcium 9.3 mg/dL (8.4-10.2); Carbon Dioxide 29 mmol/L (22-29); Chloride 100 mmol/L (96-108); Creatinine Clr Calc Pharmacy 117.3; Estimated Glomerular Filt Rate > 60; Glucose Random 124 mg/dL (60-115); Potassium 3.7 mmol/L (3.3-5.1); Sodium 138 mmol/L (135-145); Total Protein 7.8 g/dL (6.5-8.0)
[2022-01-15 20:46] LABS: Band Neutrophils Percent 1 % (3-5); Basophils Abs Manual 0.1 X10*3/uL (0.0-0.2); Basophils Percent Manual 1 % (0-2); Lymphocytes Absolute Manual 2.2 X10*3/uL (1.2-4.9); Lymphocytes Percent Manual 24 % (20-40); Monocytes Absolute Manual 0.5 X10*3/uL (0.1-1.2); Monocytes Percent Manual 6 % (2-11); Neutrophils Absolute Manual 6.3 X10*3/uL (2.0-8.3); Neutrophils Percent Manual 68 % (45-73)
[2022-01-15 20:48] LABS: RBC Morphology NORMAL
[2022-01-15 20:49] LABS: Platelet Estimate SLIGHTLY DECREASED (NORMAL); Platelet Morphology Comment NORMAL
--- NOTE | 2022-01-16 01:08 | ED_ITS ---
HPI - Extremity Problem General Chief complaint: Extremity Problem Stated complaint: L leg swelling Time Seen by Provider: 01/16/22 01:06 Source: patient and family Mode of arrival: ambulatory Limitations: no limitations History of Present Illness HPI Narrative: Patient history of left footdrop substance abuse disorder been having left heel callus patient peeled the skin off the callus 2 weeks ago comes here for swelling of the left foot along with redness of the chronic no fever no chills Related Data Home Medications Medication Instructions Recorded Confirmed gabapentin 800 mg tablet mg PO 09/04/20 09/25/21 mirtazapine 15 mg tablet mg PO 09/04/20 09/25/21 olanzapine 2.5 mg tablet mg PO 09/04/20 09/25/21 pregabalin 150 mg capsule mg PO 09/04/20 09/25/21 venlafaxine 150 mg mg PO 09/04/20 09/25/21 capsule,extended release 24 hr Previous Rx's Medication Instructions Recorded clotrimazole-betamethasone 1 1 appl topical BID 30 days #45 05/19/21 %-0.05 % topical cream grams buprenorphine HCl 8 mg sublingual 8 mg sublingual TID 30 days #90 07/15/21 tablet tabs ondansetron 4 mg disintegrating 4 mg PO Q8H PRN nausea and 07/18/21 tablet vomiting #30 tabs famotidine 40 mg tablet 40 mg PO BEDTIME #30 tabs 08/20/21 omeprazole 40 mg capsule,delayed 40 mg PO DAILY #90 caps 08/20/21 release tadalafil 5 mg tablet (Cialis) 5 mg PO DAILY sexual activity 30 09/11/21 days #30 tabs atorvastatin 20 mg tablet 20 mg PO BEDTIME 90 days #90 tabs 12/29/21 bethanechol chloride 50 mg tablet 50 mg PO TID #270 tabs 12/30/21 desmopressin 0.2 mg tablet 0.2 mg PO DAILY 90 days #90 tabs 01/08/22 cephalexin 500 mg capsule 500 mg PO QID 10 days #40 caps 01/16/22 doxycycline hyclate 100 mg tablet 100 mg PO BID #20 tabs 01/16/22 Allergies Allergy/AdvReac Type Severity Reaction Status Date / Time penicillin V Allergy Intermediate hives Verified 11/12/21 13:46 naloxone AdvReac Intermediate excessive Uncoded 09/25/21 14:20 night sweats Review of Systems Review of Systems: Yes all other systems are reviewed and are negative [facility] Past Medical History Medical History Abnormal barium swallow Back pain Chest pain Dyslipidemia Dysphagia Headache Helicobacter pylori (H. pylori) Insomnia Lumbar pain Lymphadenopathy Mild major depression Neuropathy Opioid use disorder Urinary incontinence Wound of left foot Surgical History History of carpal tunnel surgery of left wrist History of cystoscopy History of esophagogastroduodenoscopy (EGD) History of prostate surgery Hx of colonoscopy Hx of hernia repair Hx of prostate biopsy Family History Family History Father Prostate cancer Social History Social History Housing: House Alcohol intake: never Patient Tobacco Use Status: Former Tobacco user Quit Date: 5 months ago Cigarette Packs Per Day: 1 e-Cigarette/Vaping Use: Currently Using Second Hand Smoke Exposure: No Advance Directives: No service: No Current occupational status: disabled Cognitive needs: Yes (cane) Hearing needs: No Vision needs: No Physical Exam 2 Vital Signs: Vital Signs: Last Vital Signs Temp 99.4 F 01/15/22 19:34 Pulse 77 01/16/22 01:09 Resp 15 01/16/22 01:09 BP 135/55 L 01/16/22 01:09 Pulse Ox 100 01/16/22 01:09 O2 Del Method 01/16/22 01:09 BMI result Body Mass Index 21.1 Appearance: Alert. Oriented X3. No acute distress. ENT: Pharynx normal. Oral Mucosa moist Neck: Normal inspection. Neck supple. CVS: Normal heart rate and rhythm. Pulses normal. Respiratory: No respiratory distress. Equal air entry bilateral, no wheezing/rales/rhonchi Abdomen: Soft and nontender. Bowel sounds are present, no mass palpable, no CVA tenderness Skin: Skin warm and dry. Normal skin color. Normal skin turgor. Extremities: No lower extremity edema. No calf tenderness left footdrop with callus at the heel and healing wound no pus discharge soft tissue swelling of the dorsum of the left foot no crepitation Neuro: Oriented X 3. MDM - Extremity (Nontraumatic) MDM Narrative Medical decision making narrative: Patient with left heel callus with slight inflammation and cellulitis of the left foot x-ray negative for any bony erosion discharge patient home on doxycycl ine and Keflex Lab Data Attestation: I reviewed the patient's lab results. Result diagrams: 01/15/22 19:44 01/15/22 19:44 Labs: Lab Results 01/15/22 01/15/22 Range/Units 19:44 19:44 WBC 9.1 (4.8-10.8) X10*3/uL RBC 4.11 L (4.60-5.80) X10*6/uL Hgb 12.1 L (14.0-18.0) g/dl Hct 35.7 L (42.0-52.0) % MCV 86.9 (80.0-98.0) fL MCH 29.4 (27.0-33.0) pg MCHC 33.9 (31.0-36.0) g/dl RDW 13.7 (11.0-16.0) % Plt Count 118 L (160-400) X10*3/uL MPV 12.5 H (9.4-12.4) fL Immature Gran % (Auto) Cancelled Neut % (Auto) Cancelled Lymph % (Auto) Cancelled Frio % (Auto) Cancelled Eos % (Auto) Cancelled Baso % (Auto) Cancelled Lymph # (Auto) Cancelled Frio # (Auto) Cancelled Eos # (Auto) Cancelled Baso # (Auto) Cancelled Abs Immat Gran (auto) Cancelled Absolute Neuts (auto) Cancelled Absolute Nucleated RBC 0.000 (0.0-0.012) X10*3/uL Nucleated RBC % (auto) 0.0 (0.0-0.2) /100WBC Neutrophils % (Manual) 68 (45-73) % Band Neutrophils % 1 L (3-5) % Lymphocytes % (Manual) 24 (20-40) % Monocytes % (Manual) 6 (2-11) % Basophils % (Manual) 1 (0-2) % Abs Neuts (Manual) 6.3 (2.0-8.3) X10*3/uL Lymphocytes # (Manual) 2.2 (1.2-4.9) X10*3/uL Monocytes # (Manual) 0.5 (0.1-1.2) X10*3/uL Basophils # (Manual) 0.1 (0.0-0.2) X10*3/uL Platelet Estimate SLIGHTLY DECREASED (NORMAL) Plt Morphology Comment NORMAL RBC Morphology NORMAL Sodium 138 (135-145) mmol/L Potassium 3.7 (3.3-5.1) mmol/L Chloride 100 (96-108) mmol/L Carbon Dioxide 29 (22-29) mmol/L Anion Gap 13 (12-20) BUN 6 L (9-16) mg/dL Creatinine 0.79 (0.5-1.4) mg/dL Estim Creat Clear Calc 117.3 Estimated GFR > 60 Random Glucose 124 H (60-115) mg/dL Calcium 9.3 (8.4-10.2) mg/dL Total Bilirubin 0.4 (0.0-1.0) mg/dL AST 25 (5-37) U/L ALT 27 (0-40) U/L Alkaline Phosphatase 92 D (39-117) U/L Total Protein 7.8 (6.5-8.0) g/dL Albumin 4.7 (3.5-5.0) g/dL Discharge Plan Discharge Clinical Impression: Infected wound, Cellulitis of foot, left Patient Disposition: Home, Self-Care Instructions: Wound Infection (ED), Cellulitis (ED) Additional Instructions: Keep left leg elevated Antibiotics as advised Follow-up with PCP if not better Prescriptions: New cephalexin 500 mg capsule 500 mg PO QID 10 Days Qty: 40 0RF doxycycline hyclate 100 mg tablet 100 mg PO BID Qty: 20 0RF No Action tadalafil [Cialis] 5 mg tablet 5 mg PO DAILY 30 Days Qty: 30 1RF atorvastatin 20 mg tablet 20 mg PO BEDTIME 90 Days Qty: 90 1RF bethanechol chloride 50 mg tablet 50 mg PO TID Qty: 270 1RF desmopressin 0.2 mg tablet 0.2 mg PO DAILY 90 Days Qty: 90 3RF pregabalin 150 mg capsule PO gabapentin 800 mg tablet PO mirtazapine 15 mg tablet PO olanzapine 2.5 mg tablet PO venlafaxine 150 mg capsule,extended release 24hr PO clotrimazole-betamethasone 1-0.05 % cream 1 appl topical BID 30 Days Qty: 45 0RF buprenorphine HCl 8 mg tablet, sublingual 8 mg sublingual TID 30 Days Qty: 90 0RF ondansetron 4 mg tablet,disintegrating 4 mg PO Q8H PRN (Reason: nausea and vomiting) Qty: 30 0RF famotidine 40 mg tablet 40 mg PO BEDTIME Qty: 30 3RF omeprazole 40 mg capsule,delayed release(DR/EC) 40 mg PO DAILY Qty: 90 3RF
[2022-01-16 01:09] VITALS: BP 135/55; PULSE 77; RESP 15; O2SAT 100
[2022-01-16] MEDS: cephALEXin 500 MG CAPSULE PO (02:59)
== END 2022-01-16 03:27 | disposition home or self-care (01) ==
PROVIDERS: Emergency Provider Internal Medicine; PCP Internal Medicine
DX: L03.116 Cellulitis of left lower limb (principal); L84 Corns and callosities; M21.372 Foot drop, left foot; E78.5 Hyperlipidemia, unspecified; Z79.02 Long term (current) use of antithrombotics/antiplatelets; Z79.899 Other long term (current) drug therapy; Z87.891 Personal history of nicotine dependence
CPT/HCPCS: 36415; 73600; 80053; 85007; 85025; 85027; 99283; 99284

== ENCOUNTER 2022-01-23 09:13 | Outpatient (RCR) | payer MEDICARE, MEDICAID, SELFPAY | END 2022-01-23 15:00 | disposition home or self-care (01) | LOC: HO.WCC 09:13 | PROVIDERS: PCP Internal Medicine; Visit Provider Physician Assistant | DX: Z09 Encounter for follow-up examination after completed treatment for conditions other than malignant neoplasm (principal); M21.372 Foot drop, left foot; L84 Corns and callosities; G62.9 Polyneuropathy, unspecified; Z87.891 Personal history of nicotine dependence | CPT/HCPCS: 99212 ==

== ENCOUNTER 2022-03-16 14:22 | Outpatient (REF) | payer MEDICARE, MEDICAID, SELFPAY ==
--- NOTE | ~2022-03-16 | MR_ITS ---
EXAMINATION: MR FOOT WITHOUT CONTRAST, LEFT CLINICAL INFORMATION: Left foot pain. COMPARISON: Radiographs 01/16/2022. TECHNIQUE: MRI without contrast is performed on the left foot. FINDINGS: There is diffuse edema and atrophy of the quadratus plantae and extensive digitorum brevis muscles, and mild diffuse edema of the proximal flexor digitorum, abductor hallucis and abductor digiti minimus muscles. This suggests denervation change. Mild diffuse edema of the flexor hallucis longus and peroneal muscles, partially imaged. Flexor and extensor tendons appear intact. Incidental cornuate navicular. The plantar fascia is intact. The sinus tarsi is normal. No metatarsal stress reaction or fracture. The Lisfranc ligament is intact. MR/MR foot LT wo con IMPRESSION: Diffuse muscle edema with some muscle atrophy suggesting denervation change. No acute osseous abnormality.
== END 2022-03-16 14:23 | disposition home or self-care (01) ==
LOC: HO.MRI 14:22
PROVIDERS: Visit Provider Internal Medicine
DX: M79.672 Pain in left foot (principal)
CPT/HCPCS: 73718

== ENCOUNTER → 2022-05-20 15:43 | Outpatient (BNVA) | payer MEDICARE, MEDICAID, SELFPAY | PROVIDERS: PCP Internal Medicine; Visit Provider Urology | DX: N31.9 Neuromuscular dysfunction of bladder, unspecified (principal); N40.1 Benign prostatic hyperplasia with lower urinary tract symptoms; N13.8 Other obstructive and reflux uropathy; R33.9 Retention of urine, unspecified; N52.9 Male erectile dysfunction, unspecified; N20.0 Calculus of kidney; Z80.42 Family history of malignant neoplasm of prostate; Z79.899 Other long term (current) drug therapy | CPT/HCPCS: 51798; 99212 ==

== ENCOUNTER → 2022-11-04 14:07 | Outpatient (BNVA) | payer MEDICARE, MEDICAID, SELFPAY | PROVIDERS: PCP Internal Medicine; Visit Provider Urology | DX: N31.9 Neuromuscular dysfunction of bladder, unspecified (principal); N40.1 Benign prostatic hyperplasia with lower urinary tract symptoms; R33.8 Other retention of urine | CPT/HCPCS: 51798; 99212 ==

== ENCOUNTER 2022-11-06 15:29 | Outpatient (REF) | payer MEDICARE, MEDICAID, SELFPAY ==
--- NOTE | ~2022-11-06 | XR_ITS ---
EXAMINATION: XR FOOT AND ANKLE, LEFT CLINICAL INFORMATION: Pain. COMPARISON: 01/16/2022 and 01/31/2020. TECHNIQUE: 3 views of the left foot and 2 views of the left ankle. FINDINGS: There is no evidence of acute fracture or dislocation of the left foot. Left foot joint spaces are maintained. There is some periarticular sclerosis about the 1st metatarsophalangeal joint with mild spurring. There is some mild spurring seen about the 1st metacarpophalangeal joint. There is some sclerosis and dorsal spurring about the talonavicular joint. There is soft tissue swelling seen about the ankle medially and laterally. No acute fracture or dislocation of the ankle is seen. Ankle mortise appears intact. XR/XR ankle LT 2V IMPRESSION: Mild degenerative change of the left foot without evidence of acute fracture or dislocation of the foot or ankle. Soft tissue swelling about the ankle.
--- NOTE | ~2022-11-06 | XR_ITS ---
EXAMINATION: XR FOOT AND ANKLE, LEFT CLINICAL INFORMATION: Pain. COMPARISON: 01/16/2022 and 01/31/2020. TECHNIQUE: 3 views of the left foot and 2 views of the left ankle. FINDINGS: There is no evidence of acute fracture or dislocation of the left foot. Left foot joint spaces are maintained. There is some periarticular sclerosis about the 1st metatarsophalangeal joint with mild spurring. There is some mild spurring seen about the 1st metacarpophalangeal joint. There is some sclerosis and dorsal spurring about the talonavicular joint. There is soft tissue swelling seen about the ankle medially and laterally. No acute fracture or dislocation of the ankle is seen. Ankle mortise appears intact. XR/XR foot LT 2V IMPRESSION: Mild degenerative change of the left foot without evidence of acute fracture or dislocation of the foot or ankle. Soft tissue swelling about the ankle.
--- NOTE | ~2022-11-06 | US_ITS ---
EXAMINATION: US VENOUS ULTRASOUND WITH DOPPLER LOWER EXTREMITY, LEFT CLINICAL INFORMATION: Pain and swelling COMPARISON: 09/17/2016 TECHNIQUE: Ultrasound of the deep veins is performed from the hip to the calf with compression sonography and color and pulse Doppler assessment. Spectral analysis with color-flow imaging is performed. FINDINGS: There is normal venous compression and respiratory variation and augmented flow. The visualized common femoral vein, superficial femoral vein, profunda femoral vein, popliteal vein, and the trifurcation region shows no evidence of deep venous thrombosis. There is no significant popliteal fossa cyst. If the patient's symptoms persist, followup ultrasound in 5 days 7 days might be of value to exclude proximal propagation from a non-visualized calf vein. US/US venous duplex LE LT IMPRESSION: No DVT demonstrated in the left lower extremity.
== END 2022-11-06 15:30 | disposition home or self-care (01) ==
LOC: HO.US 15:29
PROVIDERS: PCP Internal Medicine; Visit Provider Nurse Practitioner Family
DX: I82.402 Acute embolism and thrombosis of unspecified deep veins of left lower extremity (principal); M25.572 Pain in left ankle and joints of left foot
CPT/HCPCS: 73600; 73620; 93971

== ENCOUNTER 2023-01-26 11:13 | Inpatient (IN) | payer MEDICARE, MEDICAID, SELFPAY ==
--- NOTE | ~2023-01-26 | CT_ITS ---
EXAMINATION: CT LOWER EXTREMITY WITH CONTRAST, LEFT CLINICAL INFORMATION: Left foot pain, evaluate for deep infection. COMPARISON: X-ray the left foot November 2022 TECHNIQUE: CT scan of the left foot is performed with contrast. Contrast dose 85 mL of Omnipaque 300 given intravenously. DLP: 325 mGy-cm FINDINGS: There is skin thickening surrounding the calcaneus in the heel region. Along the plantar aspect of the heel, there is a superficial ulceration through the skin and into the subcutaneous soft tissue involving an area measuring approximately 5 mm in diameter and extending deep to the skin approximately 6 mm. There is gas extending along the interface between the thickened skin and subcutaneous soft tissues over an area measuring approximately 2.5 x 2 x 0.15 cm. There is concomitant localized fluid-like density in the subcutaneous soft tissues overlying the plantar aspect of the calcaneal tuberosity. However, no discrete fluid collection identified. This extends deep to the skin to the level of the plantar fascia. No bony erosion identified. Subcutaneous soft tissues are otherwise unremarkable. ADDITIONAL FINDINGS: There is diffuse atrophy and fatty infiltration of the muscles throughout the lower leg most prominent in the anterior compartment and deep posterior compartment. Mild fatty infiltration in the muscles of the foot similar to that noted on prior MRI compatible with denervation changes. Remaining bones, joints and soft tissues unremarkable. CT/CT lower leg LT w IV con IMPRESSION: Superficial ulceration along the plantar aspect of the hindfoot with some gas extending along the superficial aspect of the subcutaneous soft tissues. There is surrounding abnormal density in the subcutaneous soft tissues compatible with edema and/or cellulitis. No discrete fluid collection or abscess identified. No evidence of osteomyelitis. Chronic changes within the muscles of the lower leg and foot compatible with atrophy and fatty infiltration compatible with denervation changes.
[2023-01-26 11:32] VITALS: BP 126/66; PULSE 82; RESP 20; TEMP 36; O2SAT 99; BMI 23.1
--- NOTE | 2023-01-26 11:35 | ED_ITS ---
HPI - General Adult General Chief complaint: Abdominal Pain Stated complaint: l leg open wound back pain Time Seen by Provider: 01/26/23 14:44 Source: patient and family Mode of arrival: ambulatory Limitations: no limitations History of Present Illness HPI narrative: 48-year-old male presents with multiple complaints. First of all, patient complains of right foot pain. Has an ulceration that has been there for quite some time. Intermittently gets worse and then better. He has been on antibiotics multiple times for similar symptoms. Has been draining purulent material. Pain as severe. Does not radiate. There has chronic neuropathy in the area as well. In addition, patient is also complaining of right lower back pain. The pain does not radiate. Worse with movement. There is no new numbness, tingling associated with. There is no trauma. Never had this before year. He denies any fevers or chills. Denies intravenous drug abuse. Related Data Home Medications Medication Instructions Recorded Confirmed mirtazapine 15 mg tablet mg PO 09/04/20 11/20/22 olanzapine 2.5 mg tablet mg PO 09/04/20 11/20/22 pregabalin 150 mg capsule mg PO 09/04/20 11/20/22 venlafaxine 150 mg mg PO 09/04/20 11/20/22 capsule,extended release 24 hr Previous Rx's Medication Instructions Recorded clotrimazole-betamethasone 1 1 appl topical BID 30 days #45 05/19/21 %-0.05 % topical cream grams buprenorphine HCl 8 mg sublingual 8 mg sublingual TID 30 days #90 07/15/21 tablet tabs ondansetron 4 mg disintegrating 4 mg PO Q8H PRN nausea and 07/18/21 tablet vomiting #30 tabs famotidine 40 mg tablet 40 mg PO BEDTIME #30 tabs 08/20/21 omeprazole 40 mg capsule,delayed 40 mg PO DAILY #90 caps 08/20/21 release desmopressin 0.2 mg tablet 0.2 mg PO DAILY 90 days #90 tabs 01/08/22 wheelchair #1 ea 01/20/22 atorvastatin 20 mg tablet 20 mg PO BEDTIME 90 days #90 tabs 06/27/22 gabapentin 800 mg tablet 800 mg PO TID #90 tabs 11/03/22 bethanechol chloride 50 mg tablet 50 mg PO TID 90 days #270 tabs 11/04/22 tadalafil 5 mg tablet (Cialis) 5 mg PO DAILY sexual activity 90 11/04/22 days #90 tabs foot brace left #1 ea 11/23/22 doxycycline hyclate 100 mg tablet 100 mg PO BID 10 days #20 tabs 01/19/23 Allergies Allergy/AdvReac Type Severity Reaction Status Date / Time penicillin V Allergy Intermediate hives Verified 01/26/23 11:32 naloxone AdvReac Intermediate excessive Uncoded 11/20/22 13:56 night sweats Review of Systems Review of Systems: CONSTITUTIONAL: Denies weight loss, fever and chills. HEENT: Denies changes in vision and hearing. RESPIRATORY: Denies SOB and cough. CV: Denies palpitations no CP. GI: Denies abdominal pain, nausea, vomiting and diarrhea. : Denies dysuria and urinary frequency. MSK: + myalgia and joint pain. SKIN: Denies rash and pruritus. NEUROLOGICAL: Denies headache and syncope. PSYCHIATRIC: Denies recent changes in mood. Denies anxiety and depression. All other ROS are negative unless in HPI PMFSH Past Medical History Medical History Abnormal barium swallow Back pain Chest pain Dyslipidemia Dysphagia Headache Helicobacter pylori (H. pylori) Insomnia Lumbar pain Lymphadenopathy Mild major depression Neuropathy Opioid use disorder Urinary incontinence Wound of left foot Surgical History History of carpal tunnel surgery of left wrist History of cystoscopy History of esophagogastroduodenoscopy (EGD) History of prostate surgery Hx of colonoscopy Hx of hernia repair Hx of prostate biopsy Family History Family History Father Prostate cancer Social History Social History Housing: House Alcohol intake: never Patient Tobacco Use Status: Former Tobacco user Quit Date: 5 months ago Cigarette Packs Per Day: 1 Smoked in Last 30 Days: No e-Cigarette/Vaping Use: Currently Using Second Hand Smoke Exposure: No Use of substances other than those prescribed or required for medical reasons: Yes Substance Use Type: Marijuana Advance Directives: No service: No Current occupational status: disabled Cognitive needs: Yes (cane) Hearing needs: No Vision needs: No Physical Exam ED Vital Signs: Vital Signs - 24 hr 01/26/23 11:32 01/26/23 15:36 Temperature 96.8 F 99.3 F Pulse Rate 82 92 Respiratory Rate 20 18 Blood Pressure 126/66 129/71 Pulse Oximetry 99 97 Oxygen Delivery Method Room Air Room Air BMI result Body Mass Index 23.1 GEN: Well developed, no acute distress, alert, oriented HEENT: Normocephalic, atraumatic, normal external ears, nose appears normal, no oropharyngeal edema or exudates Eyes: Normal to appearance Neck: Supple, no lymphadenopathy Respiratory: Talks in complete sentences, no respiratory distress, clear to auscultation bilaterally Cardiovascular: Regular rate and rhythm, no murmurs rubs or gallops Abdomen: Soft, nontender, nondistended, no guarding, no rebound Back: No CVA tenderness, right lumbar paraspinous tenderness Extremities: No clubbing cyanosis or edema, extremities cool to touch, 2+ dorsal pedis pulses bilaterally Neurologic: No focal neurologic deficits, cranial nerves 2-12 intact, strength is 5/5 bilaterally Skin: No rash , right heel ulceration, no surrounding erythema, no purulent drainage, tender to palpation Course Course Course Narrative: RME- 48-year-old male presents for evaluation of multiple complaints. He complains of abdominal pain, vomiting and constipation for the last week. It is left foot wound and drainage from the left foot. He reports that he was prescribed antibiotics and has ?2 doses left. ? Externa records show he was prescribed doxycycline 20 doses on 01/19/2023. Plan for labs including blood cultures Reevaluation(s) Reevaluation #1: Patient will be admitted to the hospital. It appears on my initial evaluation that he has a soft tissues infection of the heel pad. There does not appear in any to be any obvious bony involvement. In any event, patient has been on doxycycline for at least a week. He is failing outpatient treatment. His white blood cell count inflammatory markers continue to elevate. Will start Ancef and vancomycin. Will admit to the hospital. Time: 15:57 Medications Administered Discontinued Medications Generic Name Dose Route Start Last Admin Trade Name Freq PRN Reason Stop Dose Admin Acetaminophen 975 mg 01/26/23 15:00 01/26/23 15:41 Acetaminophen 325 Mg Tablet PO 01/26/23 15:01 975 mg ONCE ONE Administration Gabapentin 800 mg 01/26/23 15:00 01/26/23 15:41 Gabapentin 400 Mg Capsule PO 01/26/23 15:01 800 mg ONCE ONE Administration Iohexol 100 ml 01/26/23 15:43 01/26/23 15:43 Iohexol 350 Mg/Ml 100 Ml Infus..Btl IV 01/26/23 15:44 85 ml ONCE ONE Administration Ketorolac Tromethamine 30 mg 01/26/23 15:00 01/26/23 15:42 Ketorolac Tromethamine 30 Mg/Ml Vial IM 01/26/23 15:01 30 mg ONCE ONE Administration Medical Decision Making Medical Decision Making [facility] Narrative: 48-year-old male presents with right heel pain, right lower back pain. The heel pain has been an intermittent issue. There does not appear to be any purulence. Neurovascularly intact. Will obtain routine laboratory analysis including a CBC, inflammatory markers, blood cultures. Will need to re-evaluate the patient pending these results. Will provide patient with analgesia. Differential diagnosis includes abscess, cellulitis, osteomyelitis, musculoskeletal complaint. Will also obtain a CT scan of the lower extremity. MRI is likely to be more beneficial however, we will hopefully get a significant amount of information given the duration of his symptoms in total. Differential Diagnosis Differential Diagnoses: The differential diagnosis associated with the presen tation includes (See above) Admission/Observation Consideration of admission/observation: Escalation of care including admission/observation considered Lab Data [facility] Lab Attestation statement: I reviewed the patient's lab results. 01/26/23 11:55 01/26/23 11:55 Labs: Lab Results 01/26/23 01/26/23 01/26/23 Range/Units 11:55 11:55 11:55 WBC 16.3 H (4.8-10.8) X10*3/uL RBC 4.42 L (4.60-5.80) X10*6/uL Hgb 12.8 L (14.0-18.0) g/dl Hct 38.6 L (42.0-52.0) % MCV 87.3 (80.0-98.0) fL MCH 29.0 (27.0-33.0) pg MCHC 33.2 (31.0-36.0) g/dl RDW 13.3 (11.0-16.0) % Plt Count 345 D (160-400) X10*3/uL MPV 10.4 (9.4-12.4) fL Immature Gran % (Auto) 0.4 (0.0-0.4) % Neut % (Auto) 78.0 H (45-73) % Lymph % (Auto) 15.1 L (20-40) % [place] % (Auto) 6.2 (2-11) % Eos % (Auto) 0.1 (0-4) % Baso % (Auto) 0.2 (0-2) % Lymph # (Auto) 2.5 (1.2-4.9) X10*3/uL [place] # (Auto) 1.0 (0.1-1.2) X10*3/uL Eos # (Auto) 0.0 (0.0-0.4) X10*3/uL Baso # (Auto) 0.0 (0.0-0.2) X10*3/uL Abs Immat Gran (auto) 0.06 H (0.00-0.03) X10*3/uL Absolute Neuts (auto) 12.7 H (2.0-8.3) x10*3/uL Absolute Nucleated RBC 0.000 (0.0-0.012) X10*3/uL Nucleated RBC % (auto) 0.0 (0.0-0.2) /100WBC ESR 87 H (0-15) MM/HR Sodium 138 (135-145) mmol/L Potassium 3.7 (3.3-5.1) mmol/L Chloride 100 (96-108) mmol/L Carbon Dioxide 31 H (22-29) mmol/L Anion Gap 11 L (12-20) BUN 11 (9-16) mg/dL Creatinine 0.70 (0.5-1.4) mg/dL Estim Creat Clear Calc 141.7 Estimated GFR > 60 Random Glucose 123 H (60-115) mg/dL Lactic Acid (0.5-2.0) mmol/L Calcium 10.5 H D (8.4-10.2) mg/dL Total Bilirubin 0.5 (0.0-1.0) mg/dL AST 24 (5-37) U/L ALT 38 (0-40) U/L Alkaline Phosphatase 127 H (39-117) U/L C-Reactive Protein 15.44 H (< or = 0.50) mg/dL Total Protein 8.8 H (6.5-8.0) g/dL Albumin 4.1 (3.5-5.0) g/dL Lipase 6 L (8-78) U/L Urine Color Urine Appearance Urine pH (5.0-9.0) Ur Specific [place] (1.005-1.025) Urine Protein (Neg-Trace) mg/dL Urine Glucose (UA) (Negative) mg/dL Urine Ketones (Negative) mg/dL Urine Blood (Negative) Urine Nitrite (Negative) Ur Leukocyte Esterase (Negative) Urine RBC (0-2) /HPF Urine WBC (0-5) /HPF Ur Squamous Epith Cells (0-2) /HPF Urine Bacteria (None Seen) Hyaline Casts (0-2) /LPF Urine Opiates Screen (Not Detect) Urine Fentanyl Screen (Not Detect) Ur Barbiturates Screen (Not Detect) Ur Phencyclidine Scrn (Not Detect) Ur Amphetamines Screen (Not Detect) U Benzodiazepines Scrn (Not Detect) Urine Cocaine Screen (Not Detect) U Marijuana (THC) Screen (Not Detect) 01/26/23 01/26/23 01/26/23 Range/Units 11:55 12:36 12:36 WBC (4.8-10.8) X10*3/uL RBC (4.60-5.80) X10*6/uL Hgb (14.0-18.0) g/dl Hct (42.0-52.0) % MCV (80.0-98.0) fL MCH (27.0-33.0) pg MCHC (31.0-36.0) g/dl RDW (11.0-16.0) % Plt Count (160-400) X10*3/uL MPV (9.4-12.4) fL Immature Gran % (Auto) (0.0-0.4) % Neut % (Auto) (45-73) % Lymph % (Auto) (20-40) % [place] % (Auto) (2-11) % Eos % (Auto) (0-4) % Baso % (Auto) (0-2) % Lymph # (Auto) (1.2-4.9) X10*3/uL [place] # (Auto) (0.1-1.2) X10*3/uL Eos # (Auto) (0.0-0.4) X10*3/uL Baso # (Auto) (0.0-0.2) X10*3/uL Abs Immat Gran (auto) (0.00-0.03) X10*3/uL Absolute Neuts (auto) (2.0-8.3) x10*3/uL Absolute Nucleated RBC (0.0-0.012) X10*3/uL Nucleated RBC % (auto) (0.0-0.2) /100WBC ESR (0-15) MM/HR Sodium (135-145) mmol/L Potassium (3.3-5.1) mmol/L Chloride (96-108) mmol/L Carbon Dioxide (22-29) mmol/L Anion Gap (12-20) BUN (9-16) mg/dL Creatinine (0.5-1.4) mg/dL Estim Creat Clear Calc Estimated GFR Random Glucose (60-115) mg/dL Lactic Acid 1.9 (0.5-2.0) mmol/L Calcium (8.4-10.2) mg/dL Total Bilirubin (0.0-1.0) mg/dL AST (5-37) U/L ALT (0-40) U/L Alkaline Phosphatase (39-117) U/L C-Reactive Protein (< or = 0.50) mg/dL Total Protein (6.5-8.0) g/dL Albumin (3.5-5.0) g/dL Lipase (8-78) U/L Urine Color Yellow Urine Appearance Clear Urine pH 6.5 (5.0-9.0) Ur Specific [place] >= 1.030 H (1.005-1.025) Urine Protein 30 (1+) H (Neg-Trace) mg/dL Urine Glucose (UA) Negative (Negative) mg/dL Urine Ketones 15 (Negative) mg/dL Urine Blood Trace H (Negative) Urine Nitrite Negative (Negative) Ur Leukocyte Esterase Negative (Negative) Urine RBC 6-10 H (0-2) /HPF Urine WBC 0-5 (0-5) /HPF Ur Squamous Epith Cells 0-2 (0-2) /HPF Urine Bacteria None Seen (None Seen) Hyaline Casts 0-2 (0-2) /LPF Urine Opiates Screen Not Detected (Not Detect) Urine Fentanyl Screen Not Detected (Not Detect) Ur Barbiturates Screen Not Detected (Not Detect) Ur Phencyclidine Scrn Not Detected (Not Detect) Ur Amphetamines Screen Not Detected (Not Detect) U Benzodiazepines Scrn Not Detected (Not Detect) Urine Cocaine Screen Not Detected (Not Detect) U Marijuana (THC) Screen POSITIVE H (Not Detect) Noted abnormalities included elevated inflammatory markers, elevated white blood cell count, normal lactic acid normal renal function leukocytosis Independent Interpretation I performed an independent interpretation of an: CT Scan (Right foot, no obvious infection, soft tissue inflammation in the heel pad) Radiology Impression Discussion of test interpretation with radiology: I have reviewed the radiologist's reading. Independent Historian Clinical information obtained from an independent historian. History obtained from or confirmed by: Spouse Tests considered The following testing was considered but not selected: MRI, bone scan to rule out osteomyelitis Prescription Management I considered prescription management with: Pain Medication and Antibiotic Chronic Conditions Patient?s care impacted by: Diabetes Critical Care Time Critical Care Time Critical Care Time: Yes Total Critical Care Time: 40 Attestation: Critical care time the amount of approximately 40 minutes was spent on this patient's care. Care included bedside evaluation, re-evaluation, consultation with other providers, interpretation and medical data, review of imaging studies, treatment for possible osteomyelitis or significant skin and bone infection. This was all outside of any procedures. Discharge Plan Discharge Clinical Impression: Chronic foot ulcer, Low back pain Patient Disposition: Admitted As Inpatient Prescriptions: No Action desmopressin 0.2 mg tablet 0.2 mg PO DAILY 90 Days Qty: 90 3RF atorvastatin 20 mg tablet 20 mg PO BEDTIME 90 Days Qty: 90 1RF gabapentin 800 mg tablet 800 mg PO TID Qty: 90 3RF tadalafil [Cialis] 5 mg tablet 5 mg PO DAILY 90 Days Qty: 90 1RF (DME) foot brace left See Rx Instructions .Route .MEDSUPPLY Qty: 1 0RF Rx Instructions: As directed doxycycline hyclate 100 mg tablet 100 mg PO BID 10 Days Qty: 20 0RF pregabalin 150 mg capsule PO mirtazapine 15 mg tablet PO olanzapine 2.5 mg tablet PO venlafaxine 150 mg capsule,extended release 24hr PO clotrimazole-betamethasone 1-0.05 % cream 1 appl topical BID 30 Days Qty: 45 0RF (DME) wheelchair See Rx Instructions .Route .MEDSUPPLY Qty: 1 0RF Rx Instructions: As directed buprenorphine HCl 8 mg tablet, sublingual 8 mg sublingual TID 30 Days Qty: 90 0RF ondansetron 4 mg tablet,disintegrating 4 mg PO Q8H PRN (Reason: nausea and vomiting) Qty: 30 0RF famotidine 40 mg tablet 40 mg PO BEDTIME Qty: 30 3RF omeprazole 40 mg capsule,delayed release(DR/EC) 40 mg PO DAILY Qty: 90 3RF bethanechol chloride 50 mg tablet 50 mg PO TID 90 Days Qty: 270 1RF
[2023-01-26 12:03] LABS: Basophils Percent Auto 0.2 % (0-2); Eosinophils Percent Auto 0.1 % (0-4); Hematocrit 38.6 % (42.0-52.0); Hemoglobin 12.8 g/dl (14.0-18.0); Imm Gran Abs Auto 0.06 X10*3/uL (0.00-0.03); Imm Gran Pct Auto 0.4 % (0.0-0.4); Lymphocytes Absolute Auto 2.5 X10*3/uL (1.2-4.9); Lymphocytes Percent Auto 15.1 % (20-40); Mean Corpuscular HGB Conc 33.2 g/dl (31.0-36.0); Mean Corpuscular Volume 87.3 fL (80.0-98.0); Mean Platelet Volume 10.4 fL (9.4-12.4); Monocytes Percent Auto 6.2 % (2-11); Neutrophils Absolute Auto 12.7 x10*3/uL (2.0-8.3); Platelet Count 345 X10*3/uL (160-400); Red Blood Count 4.42 X10*6/uL (4.60-5.80); Red Cell Distribution Width 13.3 % (11.0-16.0); White Blood Count 16.3 X10*3/uL (4.8-10.8)
[2023-01-26 12:07] LABS: MANUAL DIFF FLAG NO
[2023-01-26 12:17] LABS: Lactic Acid 1.9 mmol/L (0.5-2.0)
[2023-01-26 12:22] LABS: Alanine Aminotransferase 38 U/L (0-40); Albumin Level 4.1 g/dL (3.5-5.0); Alkaline Phosphatase 127 U/L (39-117); Anion Gap 11 (12-20); Aspartate Amino Transferase 24 U/L (5-37); Bilirubin Total 0.5 mg/dL (0.0-1.0); Blood Urea Nitrogen 11 mg/dL (9-16); C Reactive Protein 15.44 mg/dL (< or = 0.50); Calcium 10.5 mg/dL (8.4-10.2); Carbon Dioxide 31 mmol/L (22-29); Chloride 100 mmol/L (96-108); Creatinine Clr Calc Pharmacy 141.7; Estimated Glomerular Filt Rate > 60; Glucose Random 123 mg/dL (60-115); Lipase 6 U/L (8-78); Potassium 3.7 mmol/L (3.3-5.1); Sodium 138 mmol/L (135-145); Total Protein 8.8 g/dL (6.5-8.0)
[2023-01-26 12:44] LABS: Erythrocyte Sedimentation Rate 87 MM/HR (0-15)
[2023-01-26 12:44] LABS: Appearance Urine Clear; Color Urine Yellow; Glucose Urine UA Negative (Negative); Leukocyte Esterase Urine Negative (Negative); Nitrite Urine Negative (Negative); PH 6.5 (5.0-9.0); Specific Gravity - Urine >= 1.030 (1.005-1.025); UMIC TRIGGER UACC YES; Urine Blood Trace (Negative); Urine Ketones 15 mg/dL (Negative); Urine Protein 30 (1+) mg/dL (Neg-Trace)
[2023-01-26 12:49] LABS: Bacteria Urine None Seen (None Seen); Hyaline Casts Urine 0-2 /LPF (0-2); Squamous Epithelial Cell Urine 0-2 /HPF (0-2); WBC Urine 0-5 /HPF (0-5)
[2023-01-26 12:59] LABS: Amphetamine Screen Urine Not Detected (Not Detect); Barbiturates, Urine Not Detected (Not Detect); Benzodiazepines Screen Urine Not Detected (Not Detect); Cannabinoid Screen Urine POSITIVE (Not Detect); Cocaine Screen Urine Not Detected (Not Detect); Fentanyl, urine Not Detected (Not Detect); Opiate Screen Urine Not Detected (Not Detect); Phencyclidine Screen Urine Not Detected (Not Detect)
[2023-01-26 15:36] VITALS: BP 129/71; PULSE 92; RESP 18; TEMP 37.4; O2SAT 97
[2023-01-26] MEDS: Gabapentin 400 MG CAPSULE 800 MG PO ×2 (15:41→20:54)
[2023-01-26] MEDS: Acetaminophen 325 MG TABLET 975 MG PO (15:41)
[2023-01-26] MEDS: Ketorolac Tromethamine 30 MG/ML VIAL IM (15:42)
[2023-01-26] MEDS: iohexoL 350 MG/ML 100 ML INFUS..BTL IV (15:43)
--- NOTE | 2023-01-26 15:47 | PC.NURSE ---
a&ox3, vss, pt brought back from CT, CT gave 20gIV in the right AC, pt medicated per provider order - will reassess pain shortly.
--- NOTE | 2023-01-26 15:49 | MHC.EDTECH ---
Gave patient urinal.
--- NOTE | 2023-01-26 15:55 | P.HPHOSP_ITS ---
History of Present Illness Date of Service: 01/26/23 Attending physician on admission: Jono Kent Chief Complaint: worsening left foot wound and constipation This is a 48-year-old Serbian-speaking only male with a past medical history significant for left foot drop, BPH, opioid dependence on maintenance therapy, depression, lymphadenopathy, dysphasia, urinary incontinence, dyslipidemia amongst others as noted below presented to the emergency department with a multitude of complaints. Patient reports that he has a left foot wound which has been draining, he was prescribed doxycycline on 01/19/2023 which he reports taking as prescribed and has 2 doses left. He also has complaints of worsening chronic lower back pain, constipation for the past week. CT lower left leg with contrast: Initial laboratory results: WBC 16.3, Hgb & Hct 12.8/38.6, ESR 87, CRP 15.4, carbon dioxide 31, anion gap 11, random glucose 223, Ca 10 point, phos 127, total protein 8.8, lipase 6, urinalysis negative for infection. Urine toxicology screen negative with the exception marijuana. In the emergency department the above was performed and patient received 30 mg ketorolac and he 100 mg p.o. gabapentin 975 mg Tylenol. The decision was made to admit patient for medical management. Of note, patient's significant other translated in Serbian per patient request. Review of Systems Review of Systems: A complete 12 point review of systems has been performed and is negative if not noted in HPI [facility] Medical History Abnormal barium swallow Back pain Chest pain Dyslipidemia Dysphagia Headache Helicobacter pylori (H. pylori) Insomnia Lumbar pain Lymphadenopathy Mild major depression Neuropathy Opioid use disorder Urinary incontinence Wound of left foot Family History Father Prostate cancer Surgical History History of carpal tunnel surgery of left wrist History of cystoscopy History of esophagogastroduodenoscopy (EGD) History of prostate surgery Hx of colonoscopy Hx of hernia repair Hx of prostate biopsy Social History Housing: House Alcohol intake: never Patient Tobacco Use Status: Former Tobacco user Quit Date: 5 months ago Cigarette Packs Per Day: 1 Smoked in Last 30 Days: No e-Cigarette/Vaping Use: Currently Using Second Hand Smoke Exposure: No Use of substances other than those prescribed or required for medical reasons: Yes Substance Use Type: Marijuana Advance Directives: No Nutrition Risks: No Nutritional Risk service: No Current occupational status: disabled Cognitive needs: Yes (cane) Hearing needs: No Vision needs: No Meds Allergies Allergy/AdvReac Type Severity Reaction Status Date / Time penicillin V Allergy Intermediate hives Verified 01/26/23 11:32 naloxone AdvReac Intermediate excessive Uncoded 11/20/22 13:56 night sweats Active Medications: Current Medications Pharmacy Consult (Consult Rx Perform Med Rec) 1 each MISCELLANE ONCE PRN PRN Reason: Consult order Home Medications Medication Instructions Recorded Confirmed Last Taken Type tadalafil 5 mg tablet (Cialis) 5 mg PO DAILY PRN Sexual Activity 01/26/23 01/26/23 Unknown History Physical Exam Vital Signs and Narrative: Vital Signs: Last Vital Signs Temp 99.3 F 01/26/23 15:36 Pulse 92 01/26/23 15:36 Resp 18 01/26/23 15:36 BP 129/71 01/26/23 15:36 Pulse Ox 97 01/26/23 15:36 O2 Del Method Room Air 01/26/23 15:36 BMI result Body Mass Index 23.1 Const: Other: General: Appears stated age, in no acute distress, answers questions accurately and appropriately With his significant other translating in Serbian per patient request. Skin: Warm , no obvious bruises, see lower extremity exam for further skin detailed Respiratory: Lungs CTAB, no rales/rhonchi, no expiratory/inspiratorywheezing, Cardiac: Regular rhythm, no rubs, gallops, murmurs or clicks. No JVD/carotid bruits. Abdomen: Soft, non-distended, bowel sounds noted throughout Extremities: No pedal or bilateral upper extremity edema noted, no erythema or tenderness noted with palpation, bilateral lower extremities are cool to touch. 2+ dorsal/pedal pulses felt bilaterally. There is a bright inner heel ulceration without surrounding erythema/ cellulitis, there is no drainage. Plantar aspect of right foot/ heel, there is a small dime-sized healed ulcer with dark in tissue. Neuro: Alert and oriented x3 Psych: Mood appropriate, no agitation /restlessness noted. Results Labs 01/26/23 11:55 01/26/23 11:55 Labs: Laboratory Results - last 24 hr 01/26/23 01/26/23 01/26/23 11:55 11:55 11:55 MCV 87.3 MCH 29.0 MCHC 33.2 RDW 13.3 Plt Count 345 D MPV 10.4 Immature Gran % (Auto) 0.4 Neut % (Auto) 78.0 H Lymph % (Auto) 15.1 L [place] % (Auto) 6.2 Eos % (Auto) 0.1 Baso % (Auto) 0.2 Lymph # (Auto) 2.5 [place] # (Auto) 1.0 Eos # (Auto) 0.0 Baso # (Auto) 0.0 Abs Immat Gran (auto) 0.06 H Absolute Neuts (auto) 12.7 H Absolute Nucleated RBC 0.000 Nucleated RBC % (auto) 0.0 ESR 87 H Anion Gap 11 L Estim Creat Clear Calc 141.7 Estimated GFR > 60 Random Glucose 123 H Lactic Acid Calcium 10.5 H D Total Bilirubin 0.5 AST 24 ALT 38 Alkaline Phosphatase 127 H C-Reactive Protein 15.44 H Total Protein 8.8 H Albumin 4.1 Lipase 6 L Urine Color Urine Appearance Urine pH Ur Specific [place] Urine Protein Urine Glucose (UA) Urine Ketones Urine Blood Urine Nitrite Ur Leukocyte Esterase Urine RBC Urine WBC Ur Squamous Epith Cells Urine Bacteria Hyaline Casts Urine Opiates Screen Urine Fentanyl Screen Ur Barbiturates Screen Ur Phencyclidine Scrn Ur Amphetamines Screen U Benzodiazepines Scrn Urine Cocaine Screen U Marijuana (THC) Screen 01/26/23 01/26/23 01/26/23 11:55 12:36 12:36 MCV MCH MCHC RDW Plt Count MPV Immature Gran % (Auto) Neut % (Auto) Lymph % (Auto) [place] % (Auto) Eos % (Auto) Baso % (Auto) Lymph # (Auto) [place] # (Auto) Eos # (Auto) Baso # (Auto) Abs Immat Gran (auto) Absolute Neuts (auto) Absolute Nucleated RBC Nucleated RBC % (auto) ESR Anion Gap Estim Creat Clear Calc Estimated GFR Random Glucose Lactic Acid 1.9 Calcium Total Bilirubin AST ALT Alkaline Phosphatase C-Reactive Protein Total Protein Albumin Lipase Urine Color Yellow Urine Appearance Clear Urine pH 6.5 Ur Specific [place] >= 1.030 H Urine Protein 30 (1+) H Urine Glucose (UA) Negative Urine Ketones 15 Urine Blood Trace H Urine Nitrite Negative Ur Leukocyte Esterase Negative Urine RBC 6-10 H Urine WBC 0-5 Ur Squamous Epith Cells 0-2 Urine Bacteria None Seen Hyaline Casts 0-2 Urine Opiates Screen Not Detected Urine Fentanyl Screen Not Detected Ur Barbiturates Screen Not Detected Ur Phencyclidine Scrn Not Detected Ur Amphetamines Screen Not Detected U Benzodiazepines Scrn Not Detected Urine Cocaine Screen Not Detected U Marijuana (THC) Screen POSITIVE H Assessment and Plan (1) Cellulitis of left foot: Status: Acute Plan Cellulitis of left foot Acute worsening of chronic left foot ulcer Elevated inflammatory markers, concerns for osteomyelitis -ESR noted to be 87, CRP 15.44. -CT left lower extremity with contrast Revealed superficial ulceration along the plantar aspect of the hindfoot with some gas extending along the superficial aspect of subcutaneous soft tissue. There is surrounding abnormal density in the subcutaneous soft tissue compatible with edema and or cellulitis. See report for full details. -patient was seen in this ED 01/16/2022 prior left foot cellulitis, he was prescribed doxycycline reports he has been compliant only had 2 doses left. -patient to remain NPO at midnight in case surgical intervention is required/I&D -Vancomycin and cefazolin to be continued, analgesics, antiemetics and antipyretics ordered -MRSA screen to be obtained -surgical consult place, recommendations appreciated -repeat labs in a.m. Severe opioid use disorder/dependence maintain on maintenance therapy - buprenorphine continued. Constipation - Patient reports he has not had a bowel movement in 1 week -likely secondary to maintenance therapy. - He is denying abdominal pain at this time. - bowel regimen ordered. Dyslipidemia -continue chronic atorvastatin. Chronic back pain Neuropathy Footdrop - continue gabapentin. Fall precautions place. - patient has an appointment scheduled outpatient for chronic back pain Depression -Denies SI/HI Nicotine dependence - patient vapes a lot -NRT was offered however patient is declining. DVT prophylaxis -intermittent sequential boots, hold off chemical DVT prophylaxis as patient will likely require I&D/washout. Patient is a full code, confirmed with patient at time of H&P with the help of his significant other who interpret in Serbian per patient request Time Spent With Patient Time: Total time managing care of this patient today ____ minutes. Quality Stroke Does the patient have a stroke diagnosis?: No VTE Prior VTE?: No VTE Risk Level:: Medical - moderate - high VTE Device Contraindication: N/A - Device Ordered VTE Drug Contraindication: Treatment Not Indicated
--- NOTE | 2023-01-26 16:32 | PC.NURSE ---
medication administered per provider order.
--- NOTE | 2023-01-26 16:47 | PHA.MEDREC ---
Pharmacy Consult ? Medication Reconciliation Pharmacy has completed the medication reconciliation. Patient confirmed mediations. Neither patient or know if patient takes bethanechol so I removed from the medication list. Myrtle Chance, AleksD
--- NOTE | 2023-01-26 17:30 | PC.NURSE ---
pt vanco being administered late as it is was in the fridge and too cold to infuse
[2023-01-26] MEDS: polyethylene glycoL 3350 17 GM POWD.PACK PO (17:41)
[2023-01-26] MEDS: 0.9 % Sodium Chloride Flush 3 ML SYRINGE IVFLUSH (17:41)
[2023-01-26 17:44] VITALS: BP 132/70; PULSE 88; RESP 16; TEMP 37.1; O2SAT 96
--- NOTE | 2023-01-26 17:44 | PC.NURSE ---
a&ox3, vss, pt verbalizing pain level decreased to 2/10 post medication administration, commode placed bedside for pt. pt notified/aware to use call le when he needs to be placed on the commode as he is not able to ambulate o his own.
[2023-01-26] MEDS: vancomycin/NS 2,000 MG/500 ML PLAST..BAG 250 MG IV (17:57)
--- NOTE | 2023-01-26 17:58 | PC.NURSE ---
medication administered per provider order.
--- NOTE | 2023-01-26 19:09 | PHA.PROG ---
Admission Date/Time: January 26, 2023 16:00 Indication: Cellulitis Weight in k.379 kg Adjusted body weight in K.6 kg [place] body weight in K.9 kg Obesity Dosing Indication % IBW: n/a Serum Creatinine - Last 168 Hours 01/26/23 11:55 Creatinine 0.70 Estimated CrCl and GFR - Last 168 Hours 01/26/23 11:55 Estim Creat Clear Calc 141.7 Estimated GFR > 60 Vancomycin Loading Dose: 2000 mg Current Vancomycin Dosing Regimen: 1250 mg Q12H Date and Time for next Vancomycin Level to be drawn: 01/28 @ 0500 Pharmacist Comments on Vancomycin Plan: Patient received an adequate load dose in the ER on 01/26 @ 1757 Maintenance dose vancomycin 1250 mg Q12H is scheduled to start 01/27 @ 0700. Expected AUC is 484 with a trough of 14.1 Level is schedule for prior to 4th dose Pharmacy will monitor renal function daily Myrtle Chance, Bird Vancomycin dosing will take advantage of [employer] as a clinical decision support tool that uses Bayesian modeling to calculate individual patient's pharmacokinetic parameters and forecast the patient's drug concentration time course with the target goal AUC 24 range of 400 - 600 mg/L/hr.
[2023-01-26 19:49] VITALS: BP 143/84; PULSE 80; RESP 16; TEMP 37.6; O2SAT 98
--- NOTE | 2023-01-26 19:54 | MHC.EDTECH ---
THIS PCT ASSUMED CARE OF PATIENT AT 1930 ,VITALS SIGN ,MRSA SWAB COLLETED AND SENT TO LAB AND BELONGINGS LIST DONE ,PT HAS A ROOM ON IMC ,WAITING FOR NURSE TO NURSE REPORT .
--- NOTE | 2023-01-26 19:56 | PC.NURSE ---
Took care of pt at 7:00pm from KRIS Foreman, pt resting in bed with no sign of distress, first attempt to call report, Rn unavailable, Will continue to monitor.
--- NOTE | 2023-01-26 20:01 | PC.NURSE ---
Assessment to lower extremities, positive CMS and pedal pulses.
[2023-01-26] MEDS: Docusate Sodium 100 MG CAPSULE PO (20:54)
[2023-01-26] MEDS: Buprenorphine HCL 8 MG TAB.SUBL SUBLINGUAL (20:54)
[2023-01-26] MEDS: Atorvastatin Calcium 20 MG TABLET PO (20:54)
--- NOTE | 2023-01-26 20:57 | PC.NURSE ---
Medicated per Mar, pt about to move left leg, pt report he doesn't have great sensation to the foot and not able to move toes, that has been his baseline. Leg is warm to touch, pulses positive and area marked. Will continue to monitor.
--- NOTE | 2023-01-26 21:21 | PC.NURSE ---
Report given to KRIS Lawrence, pt being prepared for transfer to [facility]
[2023-01-26 21:41] VITALS: BMI 22.1
[2023-01-26 21:44] VITALS: BP 146/77; PULSE 88; RESP 14; TEMP 36.3; O2SAT 97
[2023-01-26] MEDS: Acetaminophen 325 MG TABLET 650 MG PO (23:24)
[2023-01-27] MEDS: 0.9 % Sodium Chloride Flush 3 ML SYRINGE IVFLUSH ×4 (00:14→19:39)
[2023-01-27 03:21] VITALS: BP 127/76; PULSE 80; RESP 15; TEMP 36.2; O2SAT 96
[2023-01-27 07:17] VITALS: BP 143/83; PULSE 81; RESP 20; TEMP 36.5; O2SAT 98
[2023-01-27] MEDS: vancomycin HCL 1,250 MG in 0.9 % Sodium Chloride 250 ML 166.67 MG IV ×2 (07:48→18:53)
[2023-01-27 08:28] LABS: Basophils Percent Auto 0.2 % (0-2); Eosinophils Percent Auto 0.1 % (0-4); Hematocrit 35.2 % (42.0-52.0); Hemoglobin 11.7 g/dl (14.0-18.0); Imm Gran Abs Auto 0.06 X10*3/uL (0.00-0.03); Imm Gran Pct Auto 0.5 % (0.0-0.4); Lymphocytes Absolute Auto 1.8 X10*3/uL (1.2-4.9); Lymphocytes Percent Auto 14.6 % (20-40); MANUAL DIFF FLAG NO; Mean Corpuscular HGB Conc 33.2 g/dl (31.0-36.0); Mean Corpuscular Hemoglobin 28.8 pg (27.0-33.0); Mean Corpuscular Volume 86.7 fL (80.0-98.0); Mean Platelet Volume 11.1 fL (9.4-12.4); Monocytes Percent Auto 8.1 % (2-11); Neutrophils Absolute Auto 9.7 x10*3/uL (2.0-8.3); Neutrophils Percent Auto 76.5 % (45-73); Platelet Count 323 X10*3/uL (160-400); Red Blood Count 4.06 X10*6/uL (4.60-5.80); Red Cell Distribution Width 13.4 % (11.0-16.0); White Blood Count 12.6 X10*3/uL (4.8-10.8)
[2023-01-27] MEDS: Gabapentin 400 MG CAPSULE 800 MG PO ×3 (08:38→20:22)
[2023-01-27] MEDS: Buprenorphine HCL 8 MG TAB.SUBL SUBLINGUAL ×3 (08:38→20:22)
[2023-01-27] MEDS: Docusate Sodium 100 MG CAPSULE PO ×2 (08:38→20:22)
--- NOTE | 2023-01-27 08:38 | MHC.CM.PN ---
CM met with Patient and his /HCP at bedside, completed a HCP and addressed IMM with them, providing them with the original and placing a copy on the chart. Patient lives in a house with his and he receives 40 hours/week of [employer] assistance through [facility] and he uses a cane and an electric w/c for mobility. Home/resume said services is the goal and CM has initiated and will follow for dc planning. Patient has received Moderna/Covid vax x2 and his PCP is Dr. Gertrudis Johnson.
[2023-01-27] MEDS: Acetaminophen 325 MG TABLET 650 MG PO (08:41)
--- NOTE | 2023-01-27 08:43 | MHC.CM.PN ---
Patient obtains his Suboxone from [facility].
[2023-01-27 08:44] LABS: Anion Gap 12 (12-20); Blood Urea Nitrogen 13 mg/dL (9-16); Calcium 10.2 mg/dL (8.4-10.2); Carbon Dioxide 30 mmol/L (22-29); Chloride 101 mmol/L (96-108); Creatinine Clr Calc Pharmacy 150.7; Estimated Glomerular Filt Rate > 60; Glucose Random 105 mg/dL (60-115); Potassium 3.9 mmol/L (3.3-5.1); Sodium 139 mmol/L (135-145)
--- NOTE | 2023-01-27 10:03 | PM.CNGS ---
History of Present Illness Consult details Consult date: 01/27/23 Requesting physician: Sally Kowalski Narrative: 48-year-old male patient presenting with complaints of left foot pain. He has a past history of a chronic left foot ulcer and previously underwent evaluation by Wound Care. His past history is also significant for left foot drop, opioid dependence, depression, dysphagia, urinary incontinence and dyslipidemia. He presented to the emergency department was noted to have a WBC of 16.3 CT of the left foot revealed ?superficial ulceration along the plantar aspect of the hindfoot with some gas extending along the superficial aspect of the subcutaneous tissue. There is surrounding abnormal density in the subcutaneous soft tissue compatible with edema or cellulitis. No discrete fluid collection or abscess identified. No evidence of osteomyelitis. Surgical consultation was requested for evaluation of left foot wound. He is admitted to the hospitalist service for IV antibiotics. This morning he reports no pain from the heel ulcer. Review of Systems Review of Systems: Yes all other systems are reviewed and are negative PMFSH Past Medical History Medical History Abnormal barium swallow Back pain Chest pain Dyslipidemia Dysphagia Headache Helicobacter pylori (H. pylori) Insomnia Lumbar pain Lymphadenopathy Mild major depression Neuropathy Opioid use disorder Urinary incontinence Wound of left foot Family History Family History Father Prostate cancer Surgical History Surgical History History of carpal tunnel surgery of left wrist History of cystoscopy History of esophagogastroduodenoscopy (EGD) History of prostate surgery Hx of colonoscopy Hx of hernia repair Hx of prostate biopsy Social History Social History Household Members: Spouse Housing: House Do you presently have visiting nurse or other home services: No Alcohol intake: never Patient Tobacco Use Status: Former Tobacco user Quit Date: 5 months ago Cigarette Packs Per Day: 1 e-Cigarette/Vaping Use: Currently Using Second Hand Smoke Exposure: No Substance Use Type: Marijuana service: No Current occupational status: disabled Cognitive needs: Yes (cane) Hearing needs: No Vision needs: No Meds Allergies Allergy/AdvReac Type Severity Reaction Status Date / Time penicillin V Allergy Intermediate hives Verified 01/26/23 11:32 naloxone AdvReac Intermediate excessive Uncoded 11/20/22 13:56 night sweats Active Medications: Current Medications Acetaminophen (Acetaminophen 325 Mg Tablet) 650 mg PO Q6H PRN PRN Reason: Pain, Mild (Pain Scale 1-3) Last Admin: 01/27/23 08:41 Dose: 650 mg Atorvastatin Calcium (Atorvastatin Calcium 20 Mg Tablet) 20 mg PO BEDTIME [facility] Last Admin: 01/26/23 20:54 Dose: 20 mg Buprenorphine HCl (Buprenorphine Hcl 8 Mg Tab.Subl) 8 mg SUBLINGUAL TID [facility] Last Admin: 01/27/23 08:38 Dose: 8 mg Docusate Sodium (Docusate Sodium 100 Mg Capsule) 100 mg PO BID [facility] Last Admin: 01/27/23 08:38 Dose: 100 mg Gabapentin (Gabapentin 400 Mg Capsule) 800 mg PO TID [facility] Last Admin: 01/27/23 08:38 Dose: 800 mg Cefazolin Sodium 1 gm/ Sodium (Chloride) 50 mls @ 100 mls/hr IV Q8H [facility] Last Admin: 01/27/23 09:40 Dose: 100 mls/hr Vancomycin HCl 1,250 mg/ (Sodium Chloride) 250 mls @ 166.667 mls/hr IV Q12H [facility] Last Infusion: 01/27/23 09:45 Dose: Infused Ondansetron HCl (Ondansetron Hcl 4 Mg/2 Ml Vial) 4 mg IVPUSH Q8H PRN PRN Reason: Nausea and Vomiting Pharmacy Consult (Consult Rx Perform Med Rec) 1 each MISCELLANE ONCE PRN PRN Reason: Consult order Pharmacy Consult (Consult Rx Vancomycin Dosing) 1 each MISCELLANE DAILY PRN PRN Reason: Consult order Senna (Sennosides 8.6 Mg Tablet) 17.2 mg PO BEDTIME PRN PRN Reason: Constipation Sodium Chloride (0.9 % Sodium Chloride Flush 3 Ml Syringe) 3 ml IVFLUSH QSHIFT [facility] Last Admin: 01/27/23 07:48 Dose: 3 ml Home Medications Medication Instructions Recorded Confirmed Last Taken Type tadalafil 5 mg tablet (Cialis) 5 mg PO DAILY PRN Sexual Activity 01/26/23 01/26/23 Unknown History Physical Exam Vital Signs: Vital Signs: Last Vital Signs Temp 97.7 F 01/27/23 07:17 Pulse 81 01/27/23 07:17 Resp 20 01/27/23 07:17 BP 143/83 H 01/27/23 07:17 Pulse Ox 98 01/27/23 07:17 O2 Del Method Room Air 01/27/23 07:17 BMI result Body Mass Index 22.1 Const: General: comfortable and no acute distress Nutritional Appearance: well nourished Orientation/consciousness: patient oriented x3 Resp: Effort & Inspection: normal respiratory effort, no audible wheezes, no cough and no respiratory distress GI: Inspection: Yes normal to inspection Skin: Other: Warm, dry, no rash Neuro: General: patient oriented x3 Extrem: Other: Left heel with thick callus and a small punctum noted in the mid heel location. Gentle probing of the wound revealed a small subcutaneous cavity. This was opened further with a hemostat and packed with gauze. Dry sterile dressings were then covering the wound. Ankle/foot/toe images: 1. Open wound left heal. Results Labs 01/27/23 07:25 01/27/23 07:25 Labs: Abnormal lab results 01/26/23 01/26/23 01/26/23 Range/Units 11:55 11:55 11:55 WBC 16.3 H (4.8-10.8) X10*3/uL RBC 4.42 L (4.60-5.80) X10*6/uL Hgb 12.8 L (14.0-18.0) g/dl Hct 38.6 L (42.0-52.0) % Immature Gran % (Auto) (0.0-0.4) % Neut % (Auto) 78.0 H (45-73) % Lymph % (Auto) 15.1 L (20-40) % Abs Immat Gran (auto) 0.06 H (0.00-0.03) X10*3/uL Absolute Neuts (auto) 12.7 H (2.0-8.3) x10*3/uL ESR 87 H (0-15) MM/HR Carbon Dioxide 31 H (22-29) mmol/L Anion Gap 11 L (12-20) Random Glucose 123 H (60-115) mg/dL Calcium 10.5 H D (8.4-10.2) mg/dL Alkaline Phosphatase 127 H (39-117) U/L C-Reactive Protein 15.44 H (< or = 0.50) mg/dL Total Protein 8.8 H (6.5-8.0) g/dL Lipase 6 L (8-78) U/L Ur Specific [place] (1.005-1.025) Urine Protein (Neg-Trace) mg/dL Urine Blood (Negative) Urine RBC (0-2) /HPF U Marijuana (THC) Screen (Not Detect) 01/26/23 01/26/23 01/27/23 Range/Units 12:36 12:36 07:25 WBC (4.8-10.8) X10*3/uL RBC (4.60-5.80) X10*6/uL Hgb (14.0-18.0) g/dl Hct (42.0-52.0) % Immature Gran % (Auto) (0.0-0.4) % Neut % (Auto) (45-73) % Lymph % (Auto) (20-40) % Abs Immat Gran (auto) (0.00-0.03) X10*3/uL Absolute Neuts (auto) (2.0-8.3) x10*3/uL ESR (0-15) MM/HR Carbon Dioxide 30 H (22-29) mmol/L Anion Gap (12-20) Random Glucose (60-115) mg/dL Calcium (8.4-10.2) mg/dL Alkaline Phosphatase (39-117) U/L C-Reactive Protein (< or = 0.50) mg/dL Total Protein (6.5-8.0) g/dL Lipase (8-78) U/L Ur Specific [place] >= 1.030 H (1.005-1.025) Urine Protein 30 (1+) H (Neg-Trace) mg/dL Urine Blood Trace H (Negative) Urine RBC 6-10 H (0-2) /HPF U Marijuana (THC) Screen POSITIVE H (Not Detect) 01/27/23 Range/Units 07:25 WBC 12.6 H (4.8-10.8) X10*3/uL RBC 4.06 L (4.60-5.80) X10*6/uL Hgb 11.7 L (14.0-18.0) g/dl Hct 35.2 L (42.0-52.0) % Immature Gran % (Auto) 0.5 H (0.0-0.4) % Neut % (Auto) 76.5 H (45-73) % Lymph % (Auto) 14.6 L (20-40) % Abs Immat Gran (auto) 0.06 H (0.00-0.03) X10*3/uL Absolute Neuts (auto) 9.7 H (2.0-8.3) x10*3/uL ESR (0-15) MM/HR Carbon Dioxide (22-29) mmol/L Anion Gap (12-20) Random Glucose (60-115) mg/dL Calcium (8.4-10.2) mg/dL Alkaline Phosphatase (39-117) U/L C-Reactive Protein (< or = 0.50) mg/dL Total Protein (6.5-8.0) g/dL Lipase (8-78) U/L Ur Specific [place] (1.005-1.025) Urine Protein (Neg-Trace) mg/dL Urine Blood (Negative) Urine RBC (0-2) /HPF U Marijuana (THC) Screen (Not Detect) Short CBC 01/26/23 01/27/23 Range/Units 11:55 07:25 WBC 16.3 H 12.6 H (4.8-10.8) X10*3/uL Hgb 12.8 L 11.7 L (14.0-18.0) g/dl Hct 38.6 L 35.2 L (42.0-52.0) % Plt Count 345 D 323 (160-400) X10*3/uL BMP 01/26/23 01/27/23 11:55 07:25 Sodium 138 139 Potassium 3.7 3.9 Chloride 100 101 Carbon Dioxide 31 H 30 H BUN 11 13 Creatinine 0.70 0.63 Calcium 10.5 H D 10.2 Liver Function 01/26/23 Range/Units 11:55 Total Bilirubin 0.5 (0.0-1.0) mg/dL AST 24 (5-37) U/L ALT 38 (0-40) U/L Alkaline Phosphatase 127 H (39-117) U/L Albumin 4.1 (3.5-5.0) g/dL Urine 01/26/23 Range/Units 12:36 Urine Color Yellow Urine Appearance Clear Urine pH 6.5 (5.0-9.0) Ur Specific [place] >= 1.030 H (1.005-1.025) Urine Protein 30 (1+) H (Neg-Trace) mg/dL Urine Glucose (UA) Negative (Negative) mg/dL All other labs normal. Imaging Additional studies: CT left foot: Assessment and Plan (1) Chronic foot ulcer: Status: Acute Plan 48-year-old male patient with chronic left foot wound with a thick callus with a small purulent collection noted extending into the subcutaneous tissue. This was confirmed by CT of the left foot. The cavity was able to be opened further and packed with dry sterile gauze. Patient will need daily dressing changes and antibiotics. I will be able to follow the patient as an outpatient upon discharge. No further debridement is required at this time. Patient may resume his normal diet. Time Spent With Patient Time: Total time managing care of this patient today ____ minutes. Procedures Date of Service Date of Service: 01/27/23
[2023-01-27 11:18] LABS: MRSA Nasal PCR NEGATIVE (Negative); SA Nasal PCR NEGATIVE (Negative)
[2023-01-27] MEDS: Ketorolac Tromethamine 30 MG/ML VIAL IVPUSH ×2 (13:30→19:39)
[2023-01-27 15:03] VITALS: BP 142/76; PULSE 85; RESP 14; TEMP 36.4; O2SAT 98
--- NOTE | 2023-01-27 16:16 | P.PNIM_ITS ---
Subjective Subjective Date of Service: 01/27/23 Interval History: complaining of right lower back pain worse with coughing pain started few days ago after a coughing spell, denies any fall or injury, denies IV drug use, no alcohol, history of chronic back pain, but this pain seems to be different than prior episodes no bowel and bladder issues, has chronic neuropathy of unknown etiology with left footdrop ambulate with cane Review of Systems all other system reviewed and negative. Physical Exam Vital Signs: Vital Signs: Last Vital Signs Temp 97.5 F 01/27/23 15:03 Pulse 85 01/27/23 15:03 Resp 14 01/27/23 15:03 BP 142/76 H 01/27/23 15:03 Pulse Ox 98 01/27/23 15:03 O2 Del Method Room Air 01/27/23 15:03 BMI result Body Mass Index 22.1 Const: Other: General sitting in bed, in no acute distress. Neck supple no JVD. CVS regular rate rhythm, Respiratory lungs clear to auscultation, no respiratory distress, no wheeze, no rhonchi. Gastrointestinal abdomen soft, non tender, bowel sounds audible, no guarding , no rigidity. Extremities no edema. Neuro speech clear, decreased sensation both lower extremities, left foot drop. left foot wound dressing in place, no drainage noted lower back no spine tenderness, tenderness right lumbar paravertebral muscles no spasm, no swelling Objective Data Active Medications Acetaminophen (Acetaminophen 325 Mg Tablet) 650 mg PO Q6H PRN PRN Reason: Pain, Mild (Pain Scale 1-3) Last Admin: 01/27/23 08:41 Dose: 650 mg Documented By: JANET Atorvastatin Calcium (Atorvastatin Calcium 20 Mg Tablet) 20 mg PO BEDTIME [facility] Last Admin: 01/26/23 20:54 Dose: 20 mg Documented By: WILBER Buprenorphine HCl (Buprenorphine Hcl 8 Mg Tab.Subl) 8 mg SUBLINGUAL TID [facility] Last Admin: 01/27/23 14:46 Dose: 8 mg Documented By: JANET Docusate Sodium (Docusate Sodium 100 Mg Capsule) 100 mg PO BID [facility] Last Admin: 01/27/23 08:38 Dose: 100 mg Documented By: JANET Gabapentin (Gabapentin 400 Mg Capsule) 800 mg PO TID [facility] Last Admin: 01/27/23 14:45 Dose: 800 mg Documented By: JANET Cefazolin Sodium 1 gm/ Sodium (Chloride) 50 mls @ 100 mls/hr IV Q8H [facility] Last Admin: 01/27/23 15:47 Dose: 100 mls/hr Documented By: JANET Vancomycin HCl 1,250 mg/ (Sodium Chloride) 250 mls @ 166.667 mls/hr IV Q12H [facility] Last Infusion: 01/27/23 09:45 Dose: 0 mls/hr Documented By: JANET Ketorolac Tromethamine (Ketorolac Tromethamine 30 Mg/Ml Vial) 30 mg IVPUSH Q6H PRN PRN Reason: Pain, Severe (Pain Scale 7-10) Last Admin: 01/27/23 13:30 Dose: 30 mg Documented By: JANET Ondansetron HCl (Ondansetron Hcl 4 Mg/2 Ml Vial) 4 mg IVPUSH Q8H PRN PRN Reason: Nausea and Vomiting Pharmacy Consult (Consult Rx Perform Med Rec) 1 each MISCELLANE ONCE PRN PRN Reason: Consult order Pharmacy Consult (Consult Rx Vancomycin Dosing) 1 each MISCELLANE DAILY PRN PRN Reason: Consult order Senna (Sennosides 8.6 Mg Tablet) 17.2 mg PO BEDTIME PRN PRN Reason: Constipation Sodium Chloride (0.9 % Sodium Chloride Flush 3 Ml Syringe) 3 ml IVFLUSH QSHIFT [facility] Last Admin: 01/27/23 15:47 Dose: 3 ml Documented By: JANET Labs 01/27/23 07:25 01/27/23 07:25 Labs: Laboratory Results - last 24 hr 01/26/23 01/27/23 01/27/23 19:54 07:25 07:25 MCV 86.7 MCH 28.8 MCHC 33.2 RDW 13.4 Plt Count 323 MPV 11.1 Immature Gran % (Auto) 0.5 H Neut % (Auto) 76.5 H Lymph % (Auto) 14.[address] [place] % (Auto) 8.1 Eos % (Auto) 0.1 Baso % (Auto) 0.2 Lymph # (Auto) 1.8 [place] # (Auto) 1.0 Eos # (Auto) 0.0 Baso # (Auto) 0.0 Abs Immat Gran (auto) 0.06 H Absolute Neuts (auto) 9.7 H Absolute Nucleated RBC 0.000 Nucleated RBC % (auto) 0.0 Anion Gap 12 Estim Creat Clear Calc 150.7 Estimated GFR > 60 Random Glucose 105 Calcium 10.2 Nasal Screen MRSA (PCR) NEGATIVE Nasal S. aureus Screen NEGATIVE Nasal MRSA/S.aureus Interp SEE NOTE Microbiology Microbiology Results: Microbiology 01/26/23 11:56 Blood Culture - Preliminary Blood - Venous No growth after 24 hours. 01/26/23 11:56 Blood Culture - Preliminary Blood - Venous No growth after 24 hours. Assessment and Plan (1) Chronic foot ulcer: Status: Acute (2) Low back pain: Status: Acute (3) Callus of heel: Status: Acute (4) Cellulitis of left foot: Status: Acute Plan Cellulitis of left foot Acute worsening of chronic left foot ulcer with cellulitis. no significant left heel pain, no fevers no chills WBC trending down seen by Dr. Pollock he did packing with dry sterile gauze he recommended daily dressing changes and no further debridement recommended -ESR noted to be 87, CRP 15.44. -CT left lower extremity with contrast?revealed superficial ulceration along the plantar aspect of the hindfoot with some gas extending along the superficial aspect of subcutaneous soft tissue.? There is surrounding abnormal density in the subcutaneous soft tissue compatible with edema and or cellulitis.? -patient was seen in this ED 01/16/2022 prior left foot cellulitis, he was prescribed doxycycline reports he has been compliant only had 2 doses left.? - will continue iv Vancomycin and cefazolin day 2 -MRSA screen pend Acute on Chronic back pain likely musculoskeletal right lumbar paravertebral muscle pain will place on To radol as needed Neuropathy/Footdrop - continue gabapentin.? - patient has an appointment? scheduled outpatient? for chronic back pain Severe opioid use disorder/dependence maintain on maintenance therapy - buprenorphine continued. Constipation -? no bowel movement in 1 week -likely secondary to maintenance therapy, will add stool softeners. Dyslipidemia -continue atorvastatin. Depression -Denies SI/HI Nicotine dependence - patient vapes a lot -NRT was offered however patient is declined DVT prophylaxis full code in my clinical judgment patient will need continued inpatient hospitalization for IV antibiotics and close clinical follow-up Time Spent With Patient Time: Total time managing care of this patient today ____ minutes. Quality Stroke Does the patient have a stroke diagnosis?: No VTE Prior VTE?: No VTE Risk Level:: Medical - moderate - high VTE Device Contraindication: N/A - Device Ordered VTE Drug Contraindication: Treatment Not Indicated
[2023-01-27 19:01] VITALS: BP 139/81; PULSE 79; RESP 14; TEMP 36.7; O2SAT 95
[2023-01-27] MEDS: Atorvastatin Calcium 20 MG TABLET PO (20:22)
[2023-01-28 03:12] VITALS: BP 158/81; PULSE 85; RESP 18; TEMP 36.1; O2SAT 96
[2023-01-28] MEDS: Ketorolac Tromethamine 30 MG/ML VIAL IVPUSH ×3 (04:05→19:10)
[2023-01-28 06:02] LABS: Vancomycin Trough 8.9 mcg/mL (10.0-20.0)
[2023-01-28 06:04] LABS: Creatinine Clr Calc Pharmacy 141.7; Estimated Glomerular Filt Rate > 60
--- NOTE | 2023-01-28 06:12 | HE.PHANOTE ---
RE: vanco Trough on 01/28 came back low at 8.9mg/L; increased dose to 1000mg Q8H with predicted AUC of 455mg/L, trough of 13. Next level to be drawn 01/29/23 @0500
[2023-01-28] MEDS: vancomycin HCL 1,000 MG in 0.9 % Sodium Chloride 250 ML 270 MG IV ×3 (06:30→23:01)
[2023-01-28 07:18] VITALS: BP 135/80; PULSE 78; RESP 18; TEMP 36.6; O2SAT 98
[2023-01-28] MEDS: Gabapentin 400 MG CAPSULE 800 MG PO ×3 (07:54→20:10)
[2023-01-28] MEDS: Docusate Sodium 100 MG CAPSULE PO ×2 (07:54→20:10)
[2023-01-28] MEDS: 0.9 % Sodium Chloride Flush 3 ML SYRINGE IVFLUSH ×3 (07:54→23:01)
--- NOTE | 2023-01-28 08:05 | PM.PNGS ---
Subjective Subjective Date of Service: 01/28/23 Interval history: Patient with no new complaints. Has some mild foot pain on the left side. Physical Exam Vital Signs: Vital Signs: Last Vital Signs Temp 97.8 F 01/28/23 07:18 Pulse 78 01/28/23 07:18 Resp 18 01/28/23 07:18 BP 135/80 01/28/23 07:18 Pulse Ox 98 01/28/23 07:18 O2 Del Method Room Air 01/28/23 07:18 BMI result Body Mass Index 22.1 Const: General: comfortable Nutritional Appearance: well nourished Orientation/consciousness: patient oriented x3 Limitations: no limitations Resp: Effort & Inspection: normal respiratory effort Neuro: General: patient oriented x3 Extrem: Other: Dressings changed to left foot. Wound repacked with sterile gauze. Small amount of purulence discharge remaining. Subcutaneous cavity measures approximately 1 cm deep the and 0.5 cm round. No erythema appreciated. Objective Data Active Medications Acetaminophen (Acetaminophen 325 Mg Tablet) 650 mg PO Q6H PRN PRN Reason: Pain, Mild (Pain Scale 1-3) Last Admin: 01/27/23 08:41 Dose: 650 mg Documented By: JANET Atorvastatin Calcium (Atorvastatin Calcium 20 Mg Tablet) 20 mg PO BEDTIME [facility] Last Admin: 01/27/23 20:22 Dose: 20 mg Documented By: ANKUR Buprenorphine HCl (Buprenorphine Hcl 8 Mg Tab.Subl) 8 mg SUBLINGUAL TID [facility] Last Admin: 01/27/23 20:22 Dose: 8 mg Documented By: ANKUR Docusate Sodium (Docusate Sodium 100 Mg Capsule) 100 mg PO BID [facility] Last Admin: 01/28/23 07:54 Dose: 100 mg Documented By: MARCEL Gabapentin (Gabapentin 400 Mg Capsule) 800 mg PO TID [facility] Last Admin: 01/28/23 07:54 Dose: 800 mg Documented By: MARCEL Cefazolin Sodium 1 gm/ Sodium (Chloride) 50 mls @ 100 mls/hr IV Q8H [facility] Last Admin: 01/28/23 07:55 Dose: 100 mls/hr Documented By: MARCEL Vancomycin HCl 1,000 mg/ (Sodium Chloride) 270 mls @ 270 mls/hr IV Q8H [facility] Last Infusion: 01/28/23 07:40 Dose: 0 mls/hr Documented By: MARCEL Ketorolac Tromethamine (Ketorolac Tromethamine 30 Mg/Ml Vial) 30 mg IVPUSH Q6H PRN PRN Reason: Pain, Severe (Pain Scale 7-10) Last Admin: 01/28/23 04:05 Dose: 30 mg Documented By: ARTHURRISJacobo Ondansetron HCl (Ondansetron Hcl 4 Mg/2 Ml Vial) 4 mg IVPUSH Q8H PRN PRN Reason: Nausea and Vomiting Pharmacy Consult (Consult Rx Perform Med Rec) 1 each MISCELLANE ONCE PRN PRN Reason: Consult order Pharmacy Consult (Consult Rx Vancomycin Dosing) 1 each MISCELLANE DAILY PRN PRN Reason: Consult order Senna (Sennosides 8.6 Mg Tablet) 17.2 mg PO BEDTIME PRN PRN Reason: Constipation Sodium Chloride (0.9 % Sodium Chloride Flush 3 Ml [facility]) [facility] Admin: 01/28/23 07:54 Dose: 3 ml Documented By: MARCEL Labs 01/27/23 07:25 01/28/23 05:22 Labs: Laboratory Results - last 24 hr 01/26/23 01/27/23 01/27/23 19:54 07:25 07:25 MCV 86.7 MCH 28.8 MCHC 33.2 RDW 13.4 Plt Count 323 MPV 11.1 Immature Gran % (Auto) 0.5 H Neut % (Auto) 76.5 H Lymph % (Auto) 14.6 L [place] % (Auto) 8.1 Eos % (Auto) 0.1 Baso % (Auto) 0.2 Lymph # (Auto) 1.8 [place] # (Auto) 1.0 Eos # (Auto) 0.0 Baso # (Auto) 0.0 Abs Immat Gran (auto) 0.06 H Absolute Neuts (auto) 9.7 H Absolute Nucleated RBC 0.000 Nucleated RBC % (auto) 0.0 Anion Gap 12 Estim Creat Clear Calc 150.7 Estimated GFR > 60 Random Glucose 105 Calcium 10.2 Nasal Screen MRSA (PCR) NEGATIVE Nasal S. aureus Screen NEGATIVE Nasal MRSA/S.aureus Interp SEE NOTE Vancomycin Trough 01/28/23 01/28/23 05:22 05:22 MCV MCH MCHC RDW Plt Count MPV Immature Gran % (Auto) Neut % (Auto) Lymph % (Auto) [place] % (Auto) Eos % (Auto) Baso % (Auto) Lymph # (Auto) [place] # (Auto) Eos # (Auto) Baso # (Auto) Abs Immat Gran (auto) Absolute Neuts (auto) Absolute Nucleated RBC Nucleated RBC % (auto) Anion Gap Estim Creat Clear Calc 141.7 Estimated GFR > 60 Random Glucose Calcium Nasal Screen MRSA (PCR) Nasal S. aureus Screen Nasal MRSA/S.aureus Interp Vancomycin Trough 8.9 L Microbiology Microbiology Results: Microbiology 01/26/23 11:56 Blood Culture - Preliminary Blood - Venous No growth after 24 hours. 01/26/23 11:56 Blood Culture - Preliminary Blood - Venous No growth after 24 hours. Procedures Date of Service Date of Service: 01/28/23 Progress Note: A&P Assessment and plan (1) Chronic foot ulcer: Status: Acute Plan 48-year-old male patient with draining left foot/heel wound. Are stable, repacked this morning. Patient with a subcutaneous infection with no evidence of calcaneal osteomyelitis. Continue antibiotics as an outpatient; will follow-up in office if discharged. Time Spent With Patient Time: Total time managing care of this patient today ____ minutes. Quality Stroke Does the patient have a stroke diagnosis?: No VTE Prior VTE?: No VTE Risk Level:: Medical - moderate - high VTE Device Contraindication: N/A - Device Ordered VTE Drug Contraindication: Treatment Not Indicated
[2023-01-28] MEDS: Buprenorphine HCL 8 MG TAB.SUBL SUBLINGUAL ×3 (09:28→20:10)
[2023-01-28] MEDS: Sennosides 8.6 MG TABLET 17.2 MG PO (12:53)
[2023-01-28 15:11] VITALS: BP 137/78; PULSE 83; RESP 16; TEMP 36.9; O2SAT 97
--- NOTE | 2023-01-28 15:41 | P.PNIM_ITS ---
Subjective Subjective Date of Service: 01/29/23 Interval History: feeling better this morning less lower back discomfort complaining of constipation, no bowel movement in last 1 week, denies fever chills, no acute events overnight, tolerating diet no nausea, no vomiting, no abdominal pain. Review of Systems all other system reviewed and negative. Physical Exam Vital Signs: Vital Signs: Last Vital Signs Temp 98.5 F 01/28/23 15:11 Pulse 83 01/28/23 15:11 Resp 16 01/28/23 15:11 BP 137/78 01/28/23 15:11 Pulse Ox 97 01/28/23 15:11 O2 Del Method Room Air 01/28/23 15:11 BMI result Body Mass Index 22.1 Const: Other: ?General? sitting in bed, in no acut e distress.? Neck supple no JVD. CVS ? regular rate rhy thm, no murmurs Re spiratory lungs cl ear to auscultatio n, no respiratory distress, no wheez e, no rhonchi. Gas trointestinal abdo men soft, non tend er, bowel sounds a udible, no guardin g , no rigidity. E xtremities no barb a. Neuro speech cl ear, decreased sen sation both lower extremities, left foot drop. left fo ot wound Small chari unt of purulent di scharge remaining, No erythema lowe r back no spine te nderness, no parav ertebral lumbar mu scle spasm, tender ness right paraver tebral muscle,no s welling Objective Data Active Medications Acetaminophen (Acetaminophen 325 Mg Tablet) 650 mg PO Q6H PRN PRN Reason: Pain, Mild (Pain Scale 1-3) Last Admin: 01/27/23 08:41 Dose: 650 mg Documented By: JANET Atorvastatin Calcium (Atorvastatin Calcium 20 Mg Tablet) 20 mg PO BEDTIME [facility] Last Admin: 01/27/23 20:22 Dose: 20 mg Documented By: ANKUR Buprenorphine HCl (Buprenorphine Hcl 8 Mg Tab.Subl) 8 mg SUBLINGUAL TID [facility] Last Admin: 01/28/23 09:28 Dose: 8 mg Documented By: MARCEL Docusate Sodium (Docusate Sodium 100 Mg Capsule) 100 mg PO BID [facility] Last Admin: 01/28/23 07:54 Dose: 100 mg Documented By: MARCEL Gabapentin (Gabapentin 400 Mg Capsule) 800 mg PO TID [facility] Last Admin: 01/28/23 07:54 Dose: 800 mg Documented By: MARCEL Cefazolin Sodium 1 gm/ Sodium (Chloride) 50 mls @ 100 mls/hr IV Q8H [facility] Last Infusion: 01/28/23 09:19 Dose: 0 mls/hr Documented By: MARCEL Vancomycin HCl 1,000 mg/ (Sodium Chloride) 270 mls @ 270 mls/hr IV Q8H [facility] Last Infusion: 01/28/23 07:40 Dose: 0 mls/hr Documented By: MARCEL Ketorolac Tromethamine (Ketorolac Tromethamine 30 Mg/Ml Vial) 30 mg IVPUSH Q6H PRN PRN Reason: Pain, Severe (Pain Scale 7-10) Last Admin: 01/28/23 12:49 Dose: 30 mg Documented By: MARCEL Ondansetron HCl (Ondansetron Hcl 4 Mg/2 Ml Vial) 4 mg IVPUSH Q8H PRN PRN Reason: Nausea and Vomiting Pharmacy Consult (Consult Rx Perform Med Rec) 1 each MISCELLANE ONCE PRN PRN Reason: Consult order Pharmacy Consult (Consult Rx Vancomycin Dosing) 1 each MISCELLANE DAILY PRN PRN Reason: Consult order Senna (Sennosides 8.6 Mg Tablet) 17.2 mg PO BEDTIME PRN PRN Reason: Constipation Senna (Sennosides 8.6 Mg Tablet) 17.2 mg PO DAILY [facility] Last Admin: 01/28/23 12:53 Dose: 17.2 mg Documented By: MARCEL Sodium Chloride (0.9 % Sodium Chloride Flush 3 Ml Syringe) 3 ml IVFLUSH QSHIFT [facility] Last Admin: 01/28/23 07:54 Dose: 3 ml Documented By: MARCEL Labs 01/27/23 07:25 01/28/23 05:22 Labs: Laboratory Results - last 24 hr 01/28/23 01/28/23 05:22 05:22 Estim Creat Clear Calc 141.7 Estimated GFR > 60 Vancomycin Trough 8.9 L Microbiology Microbiology Results: Microbiology 01/26/23 11:56 Blood Culture - Preliminary Blood - Venous Prelim: GPC Gram Stain only 01/26/23 11:56 Blood Culture - Preliminary Blood - Venous Prelim: GPC Gram Stain only Assessment and Plan (1) Chronic foot ulcer: Status: Acute (2) Low back pain: Status: Acute (3) Callus of heel: Status: Acute (4) Cellulitis of left foot: Status: Acute Plan Cellulitis of left foot Acute worsening of chronic left foot ulcer with cellulitis. no significant left heel pain, no fevers, no chills WBC trending down seen by Dr. Pollock he did packing with dry sterile gauze he recommended daily dressing changes and no further debridement recommended -ESR noted to be 87, CRP 15.44. -CT left lower extremity with contrast?revealed superficial ulceration along the plantar aspect of the hindfoot with some gas extending along the superficial aspect of subcutaneous soft tissue.? There is surrounding abnormal density in the subcutaneous soft tissue compatible with edema and or cellulitis.? -patient was seen in this ED 01/16/2022 prior left foot cellulitis, took doxycycline with no significant improvement blood cultures 2/2 Gram-positive cocci is stain only, follow - will continue iv Vancomycin and cefazolin day 2 Acute on Chronic back pain likely musculoskeletal right lumbar paravertebral muscle pain , on Toradol as needed Neuropathy/Footdrop - continue gabapentin.? - patient has an appointment? scheduled outpatient? for chronic back pain Severe opioid use disorder/dependence buprenorphine continued. Constipation -? no bowel movement in 1 week -likely secondary to maintenance therapy, added stool softeners. Dyslipidemia -continue atorvastatin. Depression -Denies SI/HI Nicotine dependence - patient vapes a lot -NRT was offered however patient declined DVT prophylaxis full code in my clinical judgment patient will need continued inpatient hospitalization for IV antibiotics for bacteremia and close clinical follow-up Time Spent With Patient Time: Total time managing care of this patient today ____ minutes. Quality Stroke Does the patient have a stroke diagnosis?: No VTE Prior VTE?: No VTE Risk Level:: Medical - moderate - high VTE Device Contraindication: N/A - Device Ordered VTE Drug Contraindication: Treatment Not Indicated
[2023-01-28 19:22] VITALS: BP 128/59; PULSE 80; RESP 18; TEMP 36.4; O2SAT 95
[2023-01-28] MEDS: Atorvastatin Calcium 20 MG TABLET PO (20:10)
[2023-01-28 23:19] VITALS: BP 127/72; PULSE 78; RESP 18; TEMP 36.3; O2SAT 98
[2023-01-29] MEDS: Ketorolac Tromethamine 30 MG/ML VIAL IVPUSH ×4 (04:43→22:09)
[2023-01-29 07:14] LABS: Hemoglobin 11.2 g/dl (14.0-18.0); Mean Corpuscular HGB Conc 32.9 g/dl (31.0-36.0); Mean Corpuscular Hemoglobin 28.9 pg (27.0-33.0); Mean Corpuscular Volume 87.9 fL (80.0-98.0); Mean Platelet Volume 10.7 fL (9.4-12.4); Platelet Count 312 X10*3/uL (160-400); Red Blood Count 3.87 X10*6/uL (4.60-5.80); Red Cell Distribution Width 13.5 % (11.0-16.0); White Blood Count 9.9 X10*3/uL (4.8-10.8)
[2023-01-29 07:26] LABS: Vancomycin Trough 10.8 mcg/mL (10.0-20.0)
[2023-01-29 07:27] VITALS: BP 139/77; PULSE 77; RESP 17; TEMP 36.3; O2SAT 97
[2023-01-29 07:27] LABS: Anion Gap 19 (12-20); Blood Urea Nitrogen 17 mg/dL (9-16); Calcium 10.2 mg/dL (8.4-10.2); Carbon Dioxide 23 mmol/L (22-29); Chloride 102 mmol/L (96-108); Creatinine Clr Calc Pharmacy 153.2; Estimated Glomerular Filt Rate > 60; Glucose Random 101 mg/dL (60-115); Potassium 3.9 mmol/L (3.3-5.1); Sodium 140 mmol/L (135-145)
[2023-01-29] MEDS: vancomycin HCL 1,000 MG in 0.9 % Sodium Chloride 250 ML 270 MG IV ×3 (07:38→22:08)
[2023-01-29] MEDS: 0.9 % Sodium Chloride Flush 3 ML SYRINGE IVFLUSH ×3 (07:38→20:27)
[2023-01-29] MEDS: Gabapentin 400 MG CAPSULE 800 MG PO ×3 (08:47→20:26)
[2023-01-29] MEDS: Buprenorphine HCL 8 MG TAB.SUBL SUBLINGUAL ×3 (08:47→20:27)
[2023-01-29] MEDS: Docusate Sodium 100 MG CAPSULE PO ×2 (08:47→20:27)
[2023-01-29] MEDS: Sennosides 8.6 MG TABLET 17.2 MG PO (08:47)
--- NOTE | 2023-01-29 12:59 | MHC.CM.PN ---
Per MD rounds no discharge today. DP home with resumption of [employer] services. Patients will provide transport home. [facility] have been referred. Patient may need IV ABX at discharge. HX Opiods use may prevent Home infusion. DP TBD by pts recovery and need for ABX PO or IV. Patients will provide transport home.
--- NOTE | 2023-01-29 14:27 | HO.PM.IMPN ---
Subjective Subjective Date of Service: 01/29/23 Interval History: feeling better lower back pain improved,, gets better with sitting and walking and worse with resting, no fevers no chills, tolerating diet no nausea, no vomiting, no abdominal pain, constipation resolved ambulates with walker at baseline. Review of Systems all other system reviewed and negative. Physical Exam Vital Signs: Vital Signs: Last Vital Signs Temp 97.3 F 01/29/23 07:27 Pulse 77 01/29/23 07:27 Resp 17 01/29/23 07:27 BP 139/77 01/29/23 07:27 Pulse Ox 97 01/29/23 07:27 O2 Del Method Room Air 01/29/23 07:27 BMI result Body Mass Index 22.1 Const: Other: ?General? sitting in bed, in no acut e distress.? Neck supple no JVD. CVS ? regular rate rhy thm, Respiratory l ungs clear to ausc ultation, no respi ratory distress, n o wheeze, no rhonc hi. Gastrointestin al abdomen soft, n on tender, bowel s ounds audible, no guarding , no rigi dity. Extremities no edema. Neuro sp eech clear, decrea sed sensation both lower extremities , left foot drop. left foot wound dr linnette in place, n o drainage noted l ower back no spine tenderness, tende rness right lumbar paravertebral mus cles, no spasm, no swelling Objective Data Active Medications Acetaminophen (Acetaminophen 325 Mg Tablet) 650 mg PO Q6H PRN PRN Reason: Pain, Mild (Pain Scale 1-3) Last Admin: 01/27/23 08:41 Dose: 650 mg Documented By: JANET Atorvastatin Calcium (Atorvastatin Calcium 20 Mg Tablet) 20 mg PO BEDTIME [facility] Last Admin: 01/28/23 20:10 Dose: 20 mg Documented By: ARTHURRISJacobo Buprenorphine HCl (Buprenorphine Hcl 8 Mg Tab.Subl) 8 mg SUBLINGUAL TID [facility] Last Admin: 01/29/23 08:47 Dose: 8 mg Documented By: EZEQUIEL Docusate Sodium (Docusate Sodium 100 Mg Capsule) 100 mg PO BID [facility] Last Admin: 01/29/23 08:47 Dose: 100 mg Documented By: EZEQUIEL Gabapentin (Gabapentin 400 Mg Capsule) 800 mg PO TID [facility] Last Admin: 01/29/23 08:47 Dose: 800 mg Documented By: EZEQUIEL Cefazolin Sodium 1 gm/ Sodium (Chloride) 50 mls @ 100 mls/hr IV Q8H [facility] Last Infusion: 01/29/23 09:33 Dose: 0 mls/hr Documented By: EZEQUIEL Vancomycin HCl 1,000 mg/ (Sodium Chloride) 270 mls @ 270 mls/hr IV Q8H [facility] Last Infusion: 01/29/23 08:45 Dose: 0 mls/hr Documented By: EZEQUIEL Ketorolac Tromethamine (Ketorolac Tromethamine 30 Mg/Ml Vial) 30 mg IVPUSH Q6H PRN PRN Reason: Pain, Severe (Pain Scale 7-10) Last Admin: 01/29/23 10:54 Dose: 30 mg Documented By: EZEQUIEL Ondansetron HCl (Ondansetron Hcl 4 Mg/2 Ml Vial) 4 mg IVPUSH Q8H PRN PRN Reason: Nausea and Vomiting Pharmacy Consult (Consult Rx Perform Med Rec) 1 each MISCELLANE ONCE PRN PRN Reason: Consult order Pharmacy Consult (Consult Rx Vancomycin Dosing) 1 each MISCELLANE DAILY PRN PRN Reason: Consult order Senna (Sennosides 8.6 Mg Tablet) 17.2 mg PO BEDTIME PRN PRN Reason: Constipation Senna (Sennosides 8.6 Mg Tablet) 17.2 mg PO DAILY [facility] Last Admin: 01/29/23 08:47 Dose: 17.2 mg Documented By: EZEQUIEL Sodium Chloride (0.9 % Sodium Chloride Flush 3 Ml Syringe) 3 ml IVFLUSH QSHIFT [facility] Last Admin: 01/29/23 07:38 Dose: 3 ml Documented By: ZEEQUIEL Labs 01/29/23 06:56 01/29/23 06:56 Labs: Laboratory Results - last 24 hr 01/29/23 01/29/23 01/29/23 06:55 06:56 06:56 MCV 87.9 MCH 28.9 MCHC 32.9 RDW 13.5 Plt Count 312 MPV 10.7 Absolute Nucleated RBC 0.000 Nucleated RBC % (auto) 0.0 Anion Gap 19 Estim Creat Clear Calc 153.2 Estimated GFR > 60 Random Glucose 101 Calcium 10.2 C-Reactive Protein 9.00 H Vancomycin Trough 10.8 Microbiology Microbiology Results: Microbiology 01/26/23 11:56 Blood Culture - Preliminary Blood - Venous Prelim: GPC Gram Stain only 01/26/23 11:56 Blood Culture - Preliminary Blood - Venous Prelim: GPC Gram Stain only Assessment and Plan (1) Chronic foot ulcer: Status: Acute (2) Low back pain: Status: Acute (3) Callus of heel: Status: Acute (4) Cellulitis of left foot: Status: Acute Plan Cellulitis of left foot Acute worsening of chronic left foot ulcer with cellulitis. no significant left heel pain, no fevers, no chills WBC normalized seen by Dr. Pollock he recommended daily dressing changes and no further debridement recommended -ESR noted to be 87, CRP 15.44. repeat CRP 9 -CT left lower extremity with contrast?revealed superficial ulceration along the plantar aspect of the hindfoot with some gas extending along the superficial aspect of subcutaneous soft tissue.? There is surrounding abnormal density in the subcutaneous soft tissue compatible with edema and or cellulitis.? blood cultures 2/2 Gram-positive cocci is stain only, follow final culture sensitivities, repeat blood cultures, no murmurs no history of IV drug use, likely related to cellulitis/wound -will continue iv Vancomycin and cefazolin day 3 Acute on Chronic back pain improving continue Toradol as needed Neuropathy/Footdrop - continue gabapentin.? - patient has an appointment? scheduled outpatient? for chronic back pain Severe opioid use disorder/dependence buprenorphine continued. Constipation -? resolved continue stool softeners Dyslipidemia -continue atorvastatin. Depression -Denies SI/HI Nicotine dependence - patient vapes a lot -NRT was offered however patient declined DVT prophylaxis full code in my clinical judgment patient will need continued inpatient hospitalization for IV antibiotics for bacteremia and close clinical follow-up Time Spent With Patient Time: Total time managing care of this patient today ____ minutes. Quality Stroke Does the patient have a stroke diagnosis?: No VTE Prior VTE?: No VTE Risk Level:: Medical - moderate - high VTE Device Contraindication: N/A - Device Ordered VTE Drug Contraindication: Treatment Not Indicated
[2023-01-29 15:39] VITALS: BP 129/77; PULSE 88; RESP 20; TEMP 36.8; O2SAT 98
[2023-01-29 19:44] VITALS: BP 133/78; PULSE 79; RESP 20; TEMP 36.6; O2SAT 97
[2023-01-29] MEDS: Atorvastatin Calcium 20 MG TABLET PO (20:27)
[2023-01-30 04:00] VITALS: BP 125/77; PULSE 78; RESP 16; TEMP 36.9; O2SAT 98
[2023-01-30] MEDS: Ketorolac Tromethamine 30 MG/ML VIAL IVPUSH (06:04)
[2023-01-30 06:40] LABS: Creatinine Clr Calc Pharmacy 150.7; Estimated Glomerular Filt Rate > 60
[2023-01-30 06:42] LABS: Vancomycin Trough 11.6 mcg/mL (10.0-20.0)
[2023-01-30 07:10] VITALS: BP 119/74; PULSE 76; RESP 16; TEMP 36.8; O2SAT 97
[2023-01-30] MEDS: 0.9 % Sodium Chloride Flush 3 ML SYRINGE IVFLUSH ×3 (07:19→20:52)
[2023-01-30] MEDS: vancomycin HCL 1,000 MG in 0.9 % Sodium Chloride 250 ML 270 MG IV ×3 (07:19→23:01)
[2023-01-30] MEDS: Gabapentin 400 MG CAPSULE 800 MG PO ×3 (09:04→20:51)
[2023-01-30] MEDS: Docusate Sodium 100 MG CAPSULE PO ×2 (09:05→20:51)
[2023-01-30] MEDS: Buprenorphine HCL 8 MG TAB.SUBL SUBLINGUAL ×3 (09:05→20:51)
[2023-01-30] MEDS: Sennosides 8.6 MG TABLET 17.2 MG PO (09:08)
--- NOTE | 2023-01-30 11:30 | P.PNIM_ITS ---
Subjective Subjective Date of Service: 01/30/23 Interval History: resting comfortably in bed, right lower back pain improved, denies fever, no chills, no lower extremity pain due to chronic neuropathy, tolerating diet no nausea, no vomiting, no abdominal pain, no diarrhea, no other acute issues overnight. Review of Systems All other system reviewed and negative. Physical Exam Vital Signs: Vital Signs: Last Vital Signs Temp 98.2 F 01/30/23 07:10 Pulse 76 01/30/23 07:10 Resp 16 01/30/23 07:10 BP 119/74 01/30/23 07:10 Pulse Ox 97 01/30/23 07:10 O2 Del Method Room Air 01/30/23 07:10 BMI result Body Mass Index 22.1 Const: Other: General? sitting in bed, in no acute distress.? Neck supple no JVD. CVS? regular rate rhythm, Respiratory lungs clear to auscultation, no respiratory distress, no wheeze, no rhonchi. Gastrointestinal abdomen soft, non tender, bowel sounds audible, no guarding , no rigidity. Extremities no edema. Neuro speech clear, decreased sensation both lower extremities, left foot drop. left foot dry callus at base with small wound with purulent drainage, packing removed, no surrounding redness lower back no spine tenderness, tenderness right lumbar paravertebral muscles no spasm, no swelling Objective Data Active Medications Acetaminophen (Acetaminophen 325 Mg Tablet) 650 mg PO Q6H PRN PRN Reason: Pain, Mild (Pain Scale 1-3) Last Admin: 01/27/23 08:41 Dose: 650 mg Documented By: JANET Atorvastatin Calcium (Atorvastatin Calcium 20 Mg Tablet) 20 mg PO BEDTIME [facility] Last Admin: 01/29/23 20:27 Dose: 20 mg Documented By: MANUEL Buprenorphine HCl (Buprenorphine Hcl 8 Mg Tab.Subl) 8 mg SUBLINGUAL TID [facility] Last Admin: 01/30/23 09:05 Dose: 8 mg Documented By: SUSHANT Docusate Sodium (Docusate Sodium 100 Mg Capsule) 100 mg PO BID [facility] Last Admin: 01/30/23 09:05 Dose: 100 mg Documented By: SUSHANT Gabapentin (Gabapentin 400 Mg Capsule) 800 mg PO TID [facility] Last Admin: 01/30/23 09:04 Dose: 800 mg Documented By: SUSHANT Cefazolin Sodium 1 gm/ Sodium (Chloride) 50 mls @ 100 mls/hr IV Q8H [facility] Last Infusion: 01/30/23 09:03 Dose: 100 mls/hr Documented By: SUSHANT Vancomycin HCl 1,000 mg/ (Sodium Chloride) 270 mls @ 270 mls/hr IV Q8H [facility] Last Infusion: 01/30/23 08:23 Dose: 270 mls/hr Documented By: SUSHANT Ketorolac Tromethamine (Ketorolac Tromethamine 30 Mg/Ml Vial) 30 mg IVPUSH Q6H PRN PRN Reason: Pain, Severe (Pain Scale 7-10) Last Admin: 01/30/23 06:04 Dose: 30 mg Documented By: MANUEL Ondansetron HCl (Ondansetron Hcl 4 Mg/2 Ml Vial) 4 mg IVPUSH Q8H PRN PRN Reason: Nausea and Vomiting Pharmacy Consult (Consult Rx Perform Med Rec) 1 each MISCELLANE ONCE PRN PRN Reason: Consult order Pharmacy Consult (Consult Rx Vancomycin Dosing) 1 each MISCELLANE DAILY PRN PRN Reason: Consult order Senna (Sennosides 8.6 Mg Tablet) 17.2 mg PO BEDTIME PRN PRN Reason: Constipation Senna (Sennosides 8.6 Mg Tablet) 17.2 mg PO DAILY [facility] Last Admin: 01/30/23 09:08 Dose: 17.2 mg Documented By: SUSHANT Sodium Chloride (0.9 % Sodium Chloride Flush 3 Ml Syringe) 3 ml IVFLUSH QSHIFT [facility] Last Admin: 01/30/23 07:19 Dose: 3 ml Documented By: SUSHANT Labs 01/29/23 06:56 01/30/23 05:50 Labs: Laboratory Results - last 24 hr 01/30/23 01/30/23 05:50 05:50 Estim Creat Clear Calc 150.7 Estimated GFR > 60 Vancomycin Trough 11.6 Microbiology Microbiology Results: Microbiology 01/26/23 11:56 Blood Culture - Preliminary Blood - Venous Prelim: GPC Gram Stain only Assessment and Plan (1) Chronic foot ulcer: Status: Acute (2) Low back pain: Status: Acute (3) Callus of heel: Status: Acute (4) Cellulitis of left foot: Status: Acute Plan Cellulitis of left foot Acute worsening of chronic left foot ulcer with cellulitis. no left heel pain due to neuropathy, no fevers, no chills WBC normalized seen by Dr. Pollock he recommended daily dressing changes and no debridement recommended, this morning noted to have a small amount of purulent drainage, will request General surgery for reassessment. -ESR noted to be 87, CRP 15.44. repeat CRP 9,follow crp -CT left lower extremity with contrast?revealed superficial ulceration along the plantar aspect of the hindfoot with some gas extending along the superficial aspect of subcutaneous soft tissue.? There is surrounding abnormal density in the subcutaneous soft tissue compatible with edema and or cellulitis.? blood cultures 2/2 Gram-positive cocci is stain only, final culture pending, repeat blood cultures x2 also pending , no murmurs, no history of IV drug use, likely related to cellulitis/wound -will continue iv Vancomycin and cefazolin day 4 Acute on Chronic back pain DC Toradol since pain improved use as needed Motrin Neuropathy/Footdrop - continue gabapentin.? - patient has an appointment? scheduled outpatient? for chronic back pain Severe opioid use disorder/dependence buprenorphine continued. Constipation -? resolved continue stool softeners Dyslipidemia -continue atorvastatin. Depression -Denies SI/HI Nicotine dependence - patient vapes a lot -NRT was offered however patient declined DVT prophylaxis full code in my clinical judgment patient will need continued inpatient hospitalization for IV antibiotics for bacteremia and close clinical follow-up. Time Spent With Patient Time: Total time managing care of this patient today ____ minutes. Quality Stroke Does the patient have a stroke diagnosis?: No VTE Prior VTE?: No VTE Risk Level:: Medical - moderate - high VTE Device Contraindication: N/A - Device Ordered VTE Drug Contraindication: Treatment Not Indicated
[2023-01-30] MEDS: Ibuprofen 400 MG TABLET PO (12:19)
--- NOTE | 2023-01-30 14:41 | PM.PNGS ---
Subjective Subjective Date of Service: 01/30/23 Interval history: No wound issues or complaints. Physical Exam Vital Signs: Vital Signs: Last Vital Signs Temp 98.2 F 01/30/23 07:10 Pulse 76 01/30/23 07:10 Resp 16 01/30/23 07:10 BP 119/74 01/30/23 07:10 Pulse Ox 97 01/30/23 07:10 O2 Del Method Room Air 01/30/23 07:10 BMI result Body Mass Index 22.1 Extrem: Other: Left heel wound dressing taken down wound evaluated. No obvious gross purulence was expressed with pressure to the wound. No heel discomfort Or pain with exam.. Dressing reapplied. Objective Data Active Medications Acetaminophen (Acetaminophen 325 Mg Tablet) 650 mg PO Q6H PRN PRN Reason: Pain, Mild (Pain Scale 1-3) Last Admin: 01/27/23 08:41 Dose: 650 mg Documented By: JANET Atorvastatin Calcium (Atorvastatin Calcium 20 Mg Tablet) 20 mg PO BEDTIME [facility] Last Admin: 01/29/23 20:27 Dose: 20 mg Documented By: MANUEL Buprenorphine HCl (Buprenorphine Hcl 8 Mg Tab.Subl) 8 mg SUBLINGUAL TID [facility] Last Admin: 01/30/23 09:05 Dose: 8 mg Documented By: SUSHANT Docusate Sodium (Docusate Sodium 100 Mg Capsule) 100 mg PO BID [facility] Last Admin: 01/30/23 09:05 Dose: 100 mg Documented By: SUSHANT Gabapentin (Gabapentin 400 Mg Capsule) 800 mg PO TID [facility] Last Admin: 01/30/23 09:04 Dose: 800 mg Documented By: SUSHANT Cefazolin Sodium 1 gm/ Sodium (Chloride) 50 mls @ 100 mls/hr IV Q8H [facility] Last Infusion: 01/30/23 09:03 Dose: 100 mls/hr Documented By: SUSHANT Vancomycin HCl 1,000 mg/ (Sodium Chloride) 270 mls @ 270 mls/hr IV Q8H [facility] Last Infusion: 01/30/23 08:23 Dose: 270 mls/hr Documented By: SUSHANT Ibuprofen (Ibuprofen 400 Mg Tablet) 400 mg PO Q6H PRN PRN Reason: Pain, Moderate(Pain Scale 4-6) Last Admin: 01/30/23 12:19 Dose: 400 mg Documented By: SUSHANT Ondansetron HCl (Ondansetron Hcl 4 Mg/2 Ml Vial) 4 mg IVPUSH Q8H PRN PRN Reason: Nausea and Vomiting Pharmacy Consult (Consult Rx Perform Med Rec) 1 each MISCELLANE ONCE PRN PRN Reason: Consult order Pharmacy Consult (Consult Rx Vancomycin Dosing) 1 each MISCELLANE DAILY PRN PRN Reason: Consult order Senna (Sennosides 8.6 Mg Tablet) 17.2 mg PO BEDTIME PRN PRN Reason: Constipation Senna (Sennosides 8.6 Mg Tablet) 17.2 mg PO DAILY [facility] Last Admin: 01/30/23 09:08 Dose: 17.2 mg Documented By: SUSHANT Sodium Chloride (0.9 % Sodium Chloride Flush 3 Ml Syringe) 3 ml IVFLUSH QSHIFT [facility] Last Admin: 01/30/23 07:19 Dose: 3 ml Documented By: SUSHANT Labs 01/29/23 06:56 01/30/23 05:50 Labs: Laboratory Results - last 24 hr 01/30/23 01/30/23 05:50 05:50 Estim Creat Clear Calc 150.7 Estimated GFR > 60 Vancomycin Trough 11.6 Procedures Date of Service Date of Service: 01/30/23 Progress Note: A&P Assessment and plan (1) Chronic foot ulcer: Status: Acute (2) Callus of heel: Status: Acute Plan continue current therapy. To follow-up. Time Spent With Patient Time: Total time managing care of this patient today ____ minutes. Quality Stroke Does the patient have a stroke diagnosis?: No VTE Prior VTE?: No VTE Risk Level:: Medical - moderate - high VTE Device Contraindication: N/A - Device Ordered VTE Drug Contraindication: Treatment Not Indicated
[2023-01-30 15:29] VITALS: BP 144/77; PULSE 88; RESP 16; TEMP 37.1; O2SAT 97
[2023-01-30] MEDS: Acetaminophen 325 MG TABLET 650 MG PO (17:24)
[2023-01-30 19:30] VITALS: BP 131/70; PULSE 85; RESP 18; TEMP 36.9; O2SAT 97
[2023-01-30] MEDS: Atorvastatin Calcium 20 MG TABLET PO (20:51)
[2023-01-31] MEDS: Ibuprofen 400 MG TABLET PO ×2 (00:10→13:23)
[2023-01-31 03:59] VITALS: BP 132/72; PULSE 82; RESP 18; TEMP 36.6; O2SAT 98
[2023-01-31 06:30] LABS: Creatinine Clr Calc Pharmacy 150.7; Estimated Glomerular Filt Rate > 60
[2023-01-31 06:33] LABS: Vancomycin Trough 10.4 mcg/mL (10.0-20.0)
[2023-01-31] MEDS: vancomycin HCL 1,000 MG in 0.9 % Sodium Chloride 250 ML 270 MG IV (06:47)
--- NOTE | 2023-01-31 07:12 | HE.PHANOTE ---
Vancomycin Dosing Addendum Vancomycin Trough 10.4 ( predicted AUC 407). Increasing dose to 1250 mg q8h for predicted AUC of 507. Creatinine stable. Next Trough 02/01/23 @0500
[2023-01-31 07:20] VITALS: BP 127/76; PULSE 80; RESP 18; TEMP 36.5; O2SAT 99
[2023-01-31] MEDS: Sennosides 8.6 MG TABLET 17.2 MG PO (08:52)
[2023-01-31] MEDS: Docusate Sodium 100 MG CAPSULE PO ×2 (08:52→20:09)
[2023-01-31] MEDS: Gabapentin 400 MG CAPSULE 800 MG PO ×3 (08:52→20:09)
[2023-01-31] MEDS: Buprenorphine HCL 8 MG TAB.SUBL SUBLINGUAL ×3 (08:53→20:09)
[2023-01-31] MEDS: 0.9 % Sodium Chloride Flush 3 ML SYRINGE IVFLUSH ×2 (08:53→23:36)
--- NOTE | 2023-01-31 09:24 | P.PNIM_ITS ---
Subjective Subjective Date of Service: 01/31/23 Interval History: feeling better, back pain has significantly improved, tolerating diet no nausea no vomiting no abdominal pain, no fevers, no chills, no diarrhea, no other acute issues overnight has been ambulating using a walker at home use cane for ambulation recommend ambulation Q shift. Review of Systems All other system reviewed and negative. Physical Exam Vital Signs: Vital Signs: Last Vital Signs Temp 97.7 F 01/31/23 07:20 Pulse 80 01/31/23 07:20 Resp 18 01/31/23 07:20 BP 127/76 01/31/23 07:20 Pulse Ox 99 01/31/23 07:20 O2 Del Method Room Air 01/31/23 07:20 BMI result Body Mass Index 22.1 Const: Other: General? sitting i n bed, in no acute distress.? Neck s upple no JVD. CVS? regular rate rhyt hm, Respiratory gavin ngs clear to auscu ltation, no respir atory distress, no wheeze, no rhonch i. Gastrointestina l abdomen soft, no n tender, bowel so unds audible, no g uarding , no rigid ity. Extremities n o edema. Neuro spe ech clear, decreas ed sensation both lower extremities, left foot drop. l eft foot? [place] wound? with no drainage, no surr ounding redness lo wer back no spine tenderness, no rig ht lumbar paravert ebral muscles tend erness, no spasm, no swelling Objective Data Active Medications Acetaminophen (Acetaminophen 325 Mg Tablet) 650 mg PO Q6H PRN PRN Reason: Pain, Mild (Pain Scale 1-3) Last Admin: 01/30/23 17:24 Dose: 650 mg Documented By: BRISA Atorvastatin Calcium (Atorvastatin Calcium 20 Mg Tablet) 20 mg PO BEDTIME [facility] Last Admin: 01/30/23 20:51 Dose: 20 mg Documented By: JEFFERSON Buprenorphine HCl (Buprenorphine Hcl 8 Mg Tab.Subl) 8 mg SUBLINGUAL TID [facility] Last Admin: 01/31/23 08:53 Dose: 8 mg Documented By: SUSHANT Docusate Sodium (Docusate Sodium 100 Mg Capsule) 100 mg PO BID [facility] Last Admin: 01/31/23 08:52 Dose: 100 mg Documented By: SUSHANT Gabapentin (Gabapentin 400 Mg Capsule) 800 mg PO TID [facility] Last Admin: 01/31/23 08:52 Dose: 800 mg Documented By: SUSHANT Ampicillin Sodium/Sulbactam (Sodium 3 gm/ Sodium Chloride) 100 mls @ 200 mls/hr IV Q6H [facility] Ibuprofen (Ibuprofen 400 Mg Tablet) 400 mg PO Q6H PRN PRN Reason: Pain, Moderate(Pain Scale 4-6) Last Admin: 01/31/23 00:10 Dose: 400 mg Documented By: LISANDRO Ondansetron HCl (Ondansetron Hcl 4 Mg/2 Ml Vial) 4 mg IVPUSH Q8H PRN PRN Reason: Nausea and Vomiting Pharmacy Consult (Consult Rx Perform Med Rec) 1 each MISCELLANE ONCE PRN PRN Reason: Consult order Senna (Sennosides 8.6 Mg Tablet) 17.2 mg PO BEDTIME PRN PRN Reason: Constipation Senna (Sennosides 8.6 Mg Tablet) 17.2 mg PO DAILY [facility] Last Admin: 01/31/23 08:52 Dose: 17.2 mg Documented By: SUSHANT Sodium Chloride (0.9 % Sodium Chloride Flush 3 Ml Syringe) 3 ml IVFLUSH QSHIFT [facility] Last Admin: 01/31/23 08:53 Dose: 3 ml Documented By: SUSHANT Labs 01/29/23 06:56 01/31/23 05:33 Labs: Laboratory Results - last 24 hr 01/31/23 01/31/23 05:33 05:33 Estim Creat Clear Calc 150.7 Estimated GFR > 60 Vancomycin Trough 10.4 Microbiology Microbiology Results: Microbiology 01/29/23 14:47 Blood Culture - Preliminary Blood - Venous No growth after 24 hours. 01/29/23 14:47 Blood Culture - Preliminary Blood - Venous No growth after 24 hours. 01/26/23 11:56 Blood Culture - Final Blood - Venous Finegoldia magna 01/26/23 11:56 Blood Culture - Final Blood - Venous Finegoldia magna Assessment and Plan (1) Chronic foot ulcer: Status: Acute (2) Low back pain: Status: Acute (3) Callus of heel: Status: Acute (4) Cellulitis of left foot: Status: Acute Plan Cellulitis of left foot Acute worsening of chronic left foot ulcer with cellulitis. no left heel pain due to neuropathy, no fevers, no chills WBC normalized seen by Dr. Pollock he recommended daily dressing changes and no debridement recommended, re-evaluated by Dr. Ordaz 01/30 no drainage noted. -ESR noted to be 87, CRP 15.44. repeat CRP 9,follow crp -CT left lower extremity with contrast?revealed superficial ulceration along the plantar aspect of the hindfoot with some gas extending along the superficial aspect of subcutaneous soft tissue.? There is surrounding abnormal density in the subcutaneous soft tissue compatible with edema and or cellulitis.? blood cultures 08/06 grew Finegoldia magna previously peptostreptococcus, repeat blood cultures negative likely source skin -will continue iv Vancomycin and cefazolin day 5 follow final sensitivities Acute on Chronic back pain improved, DC Toradol , continue as needed Motrin Neuropathy/Footdrop - continue gabapentin.? - patient has an appointment? scheduled outpatient? for chronic back pain Severe opioid use disorder/dependence buprenorphine continued. Constipation -? resolved continue stool softeners Dyslipidemia -continue atorvastatin. Depression -Denies SI/HI Nicotine dependence - patient vapes a lot -NRT was offered however patient declined DVT prophylaxis full code in my clinical judgment patient will need continued inpatient hospitalization for IV antibiotics for bacteremia and close clinical follow-up. Time Spent With Patient Time: Total time managing care of this patient today ____ minutes. Quality Stroke Does the patient have a stroke diagnosis?: No VTE Prior VTE?: No VTE Risk Level:: Medical - moderate - high VTE Device Contraindication: N/A - Device Ordered VTE Drug Contraindication: Treatment Not Indicated
[2023-01-31] MEDS: vancomycin HCL 1,250 MG in 0.9 % Sodium Chloride 250 ML 166.67 MG IV ×2 (14:37→22:07)
[2023-01-31 15:30] VITALS: BP 142/80; PULSE 88; RESP 18; TEMP 36.9; O2SAT 98
[2023-01-31 20:00] VITALS: BP 130/70; PULSE 80; RESP 18; TEMP 36.4; O2SAT 98
[2023-01-31] MEDS: Atorvastatin Calcium 20 MG TABLET PO (20:09)
[2023-02-01 03:25] VITALS: BP 124/75; PULSE 80; RESP 16; TEMP 36.6; O2SAT 98
[2023-02-01] MEDS: Ibuprofen 400 MG TABLET PO ×2 (04:08→12:36)
[2023-02-01 05:51] LABS: Vancomycin Trough 12.5 mcg/mL (10.0-20.0)
[2023-02-01 05:52] LABS: C Reactive Protein 8.78 mg/dL (< or = 0.50); Creatinine Clr Calc Pharmacy 141.7; Estimated Glomerular Filt Rate > 60
[2023-02-01] MEDS: vancomycin HCL 1,250 MG in 0.9 % Sodium Chloride 250 ML 166.67 MG IV (06:11)
[2023-02-01 07:08] VITALS: BP 141/78; PULSE 77; RESP 18; TEMP 36.6; O2SAT 97
[2023-02-01] MEDS: 0.9 % Sodium Chloride Flush 3 ML SYRINGE IVFLUSH (07:57)
[2023-02-01] MEDS: Sennosides 8.6 MG TABLET 17.2 MG PO (07:57)
[2023-02-01] MEDS: Gabapentin 400 MG CAPSULE 800 MG PO (07:57)
[2023-02-01] MEDS: Docusate Sodium 100 MG CAPSULE PO (07:58)
[2023-02-01] MEDS: Buprenorphine HCL 8 MG TAB.SUBL SUBLINGUAL (07:58)
--- NOTE | 2023-02-01 12:52 | MHC.CM.PN ---
Addendum entered by Rebecca Chaves 02/01/23 13:39: DP: PT HAS BEEN MEDICALLY CLEARED FOR DC HOME, NO SERVICES. PT WILL RESUME TILE MECHANIC HELPER ASSIST. FAMILY TO TRANSPORT Original Note: PER MD ROUNDS, AWAITING ID INPUT FOR LEFT FOOT INFECTION, CM WILL CONTINUE TO FOLLOW FOR DC NEEDS/PLAN.
--- NOTE | 2023-02-01 13:22 | PM.DS ---
DS: Providers Provider Date of Service: 02/01/23 Date of admission: 01/26/23 16:00 Primary care physician: Gertrudis Culver MD Consults: 01/27/23 07:00 Consult to General Surgery Routine Consulting Provider: [facility] [facility] Reason for consultation: left foot cellulitis -concerns for developing osteo 02/01/23 07:49 Consult to Infectious Diseases Routine Consulting Provider: [facility] [place] [facility] Reason for consultation: gm pos bacteremia DS: Diagnosis Discharge Diagnosis (1) Chronic foot ulcer: Status: Acute (2) Low back pain: Status: Acute (3) Callus of heel: Status: Acute (4) Cellulitis of left foot: Status: Acute DS: Summary Hospital Course Hospital Course: Date of Service: 01/26/23 Attending physician on admission: Jono Kent Chief Complaint:? worsening left foot wound and constipation This is a 48-year-old? [place]ian-speaking only male with a past medical history significant for left foot drop, BPH, opioid dependence on maintenance therapy, depression, lymphadenopathy, dysphasia, urinary incontinence, dyslipidemia amongst others as noted below presented to the emergency department with a multitude of complaints.? Patient reports that he has a left foot wound which has been draining, he was prescribed doxycycline on 01/19/2023 which he reports taking as prescribed and has 2 doses left.? He also has complaints of? worsening chronic lower back pain, constipation for the past week. CT lower left leg with contrast: Initial laboratory results:? WBC 16.3, Hgb & Hct 12.8/38.6, ESR 87, CRP 15.4, carbon dioxide 31, anion gap 11, random glucose 223, Ca 10 point, phos 127, total protein 8.8, lipase 6, urinalysis negative for infection.? Urine toxicology screen negative with the exception marijuana. In the emergency department the above was performed and patient received 30 mg ketorolac and he 100 mg p.o. gabapentin 975 mg Tylenol. The decision was made to admit patient for medical management. ?Of note, patient's significant other translated in [place] per patient request. hospital course: Cellulitis of left foot with chronic left foot wound and Finegoldia bacteremia, admitted to medical floor treated with IV cefazolin and IV vancomycin on admission noted to have ESR of 87 and CRP 15.44, responded to above treatment, WBC normalized CRP trended down?seen by Dr. Pollock he recommended daily dressing changes and no debridement recommended,? re-evaluated by Dr. Ordaz 01/30 no drainage noted. blood cultures 08/06? grew Finegoldia magna? previously peptostreptococcus, repeat blood cultures negative likely source skin, case discussed with ID she recommend 1 week of Flagyl and Levaquin ?Acute on Chronic back pain, noted to have no spine tenderness pain improved with NSAIDs ? Neuropathy/Footdrop continue gabapentin and outpatient appointment with PCP ? Severe opioid use disorder/dependence continue buprenorphine Constipation-? resolved continue stool softeners Dyslipidemia -continue atorvastatin. Nicotine dependence declined nicotine replacement therapy Time Spent with Patient Time attestation: Total time managing care of this patient today ____ minutes. Discharge coordination time: Greater than 30 minutes Quality: Safe Use of Opioids Does Pt have an Active Cancer Diagnosis on the Problem List?: No Quality: Stroke Does the patient have a stroke diagnosis?: No Physical Exam Vital Signs: Vital Signs: Last Vital Signs Temp 97.8 F 02/01/23 07:08 Pulse 77 02/01/23 07:08 Resp 18 02/01/23 07:08 BP 141/78 H 02/01/23 07:08 Pulse Ox 97 02/01/23 07:08 O2 Del Method Room Air 02/01/23 07:08 BMI result Body Mass Index 22.1 Const: Other: General? sitting i n bed, in no acute distress.? Neck s upple no JVD. CVS? regular rate rhyt hm, Respiratory gavin ngs clear to auscu ltation, no respir atory distress, no wheeze, no rhonch i. Gastrointestina l abdomen soft, no n tender, bowel so unds audible, no g uarding , no rigid ity. Extremities n o edema. Neuro spe ech clear, decreas ed sensation both lower extremities, left foot drop. l eft foot? [place] with no [place], no surr ounding redness lo wer back no spine tenderness, tender ness right lumbar paravertebral musc les resolved, no s pasm, no swelling DS: Data Data Completed and Pending Labs on day of discharge: Laboratory Results - last 24 hr 02/01/23 02/01/23 05:23 05:23 Creatinine 0.67 Estim Creat Clear Calc 141.7 Estimated GFR > 60 C-Reactive Protein 8.78 H Vancomycin Trough 12.5 Preliminary micro results at discharge 01/29/23 14:47 Blood Culture - Preliminary Blood - Venous No growth after 48 hours. 01/29/23 14:47 Blood Culture - Preliminary Blood - Venous No growth after 48 hours. Discharge Plan Discharge Anticipated Discharge Date/Time: 02/01/23 13:12 Patient Disposition: Home, Self-Care Discharge Diagnosis: bacteremia from left foot wound Referrals: Gertrudis Reed MD [Primary Care Provider] - 1 Week Discharge Medications: New metronidazole 500 mg tablet 500 mg PO Q8H 7 Days Qty: 21 0RF levofloxacin 500 mg tablet 500 mg PO DAILY 7 Days Qty: 7 0RF (DME) walker Misc See Rx Instructions .Route Qty: 1 0RF Rx Instructions: As directed Continued atorvastatin 20 mg tablet 20 mg PO BEDTIME 90 Days Qty: 90 1RF gabapentin 800 mg tablet 800 mg PO TID Qty: 90 3RF (DME) foot brace left See Rx Instructions .Route .MEDSUPPLY Qty: 1 0RF Rx Instructions: As directed tadalafil [Cialis] 5 mg tablet 5 mg PO DAILY PRN (Reason: Sexual Activity) (DME) wheelchair See Rx Instructions .Route .MEDSUPPLY Qty: 1 0RF Rx Instructions: As directed buprenorphine HCl 8 mg tablet, sublingual 8 mg sublingual TID 30 Days Qty: 90 0RF ondansetron 4 mg tablet,disintegrating 4 mg PO Q8H PRN (Reason: nausea and vomiting) Qty: 30 0RF Discontinued doxycycline hyclate 100 mg tablet 100 mg PO BID 10 Days Qty: 20 0RF Discharge Orders: Discharge Order (Routine); Ordered 02/01/23 Ordered By: Zaire Burroughs Diet: Advance to usual diet Activity on Discharge: As tolerated Stand Alone Forms: Patient Portal Discharge page Care Plan Goals: finished course of antibiotics Flagyl and Levaquin as directed for 1 week Health Concerns: continue all home medications as before Plan of Treatment: outpatient follow-up with primary care physician. Assessment: as above
== END 2023-02-01 14:15 | disposition home or self-care (01) | DRG 603 ==
LOC: HO.ED 15:58 → HO.EDOVER 16:08 → HO.IMC 19:15 → HO.S3 01-28 01:31
PROVIDERS: Physician Assistant; Admitting Provider Registered Nurse; Emergency Provider Emergency Medicine; PCP Internal Medicine; Visit Provider Hospitalist
DX: L03.116 Cellulitis of left lower limb (principal); F11.20 Opioid dependence, uncomplicated; L97.429 Non-pressure chronic ulcer of left heel and midfoot with unspecified severity; F32.9 Major depressive disorder, single episode, unspecified; M54.9 Dorsalgia, unspecified; G89.29 Other chronic pain; K59.03 Drug induced constipation; T40.495A Adverse effect of other synthetic narcotics, initial encounter; N40.0 Benign prostatic hyperplasia without lower urinary tract symptoms; L84 Corns and callosities; M21.372 Foot drop, left foot; F17.290 Nicotine dependence, other tobacco product, uncomplicated; E78.5 Hyperlipidemia, unspecified; G62.9 Polyneuropathy, unspecified; Z71.6 Tobacco abuse counseling; Z87.891 Personal history of nicotine dependence; Z79.899 Other long term (current) drug therapy
CPT/HCPCS: 36415; 73701; 80048; 80053; 80202; 80307; 81001; 82565; 83605; 83690; 85025; 85027; 85652; 86140; 87040; 87076; 87205; 87640; 87641; 99284; J0571; J0690; J1885; J3370; J3371; Q9967

== ENCOUNTER → 2023-01-26 16:00 | Outpatient (BNV) | payer MEDICARE, MEDICAID, SELFPAY | PROVIDERS: Admitting Provider Registered Nurse; Emergency Provider Emergency Medicine; PCP Internal Medicine; Visit Provider Surgery | DX: L97.509 Non-pressure chronic ulcer of other part of unspecified foot with unspecified severity (principal); L84 Corns and callosities | CPT/HCPCS: 99222; 99231; 99232 ==

== ENCOUNTER → 2023-01-26 16:00 | Outpatient (BNV) | payer MEDICARE, MEDICAID, SELFPAY | PROVIDERS: Admitting Provider Registered Nurse; Emergency Provider Emergency Medicine; PCP Internal Medicine; Visit Provider Registered Nurse | DX: L97.529 Non-pressure chronic ulcer of other part of left foot with unspecified severity (principal); M54.50 Low back pain, unspecified; L84 Corns and callosities; L03.116 Cellulitis of left lower limb | CPT/HCPCS: 99223; 99231; 99232; 99233; 99239 ==

== ENCOUNTER 2023-02-11 14:15 | Outpatient (AMB) | payer MEDICARE, MEDICAID, SELFPAY ==
--- NOTE | 2023-02-11 14:21 | MHC.OFFVIS ---
Intake Vital Signs 02/11/23 14:32 Height 6 ft 2 in Weight 161 lb BMI 20.7 BP 134/71 Blood Pressure Location Lt brachial Position Sitting Pulse 89 Intake Visit Reasons: draining left foot/heel wound, [facility] Inpt follow up Intake Note: Patient is seen in office for ER follow up visit, following draining of the left foot. Patient c/o: area is no longer draining, does have some callus on the heel, denies any pain, all done with antibiotics Senior Support Analyst Required: No Accompanied by: Family/Other Allergies penicillin V Allergy (Intermediate, Verified 02/11/23 14:31) hives naloxone Adverse Reaction (Intermediate, Uncoded 02/11/23 14:31) excessive night sweats Medication List - Last Reconciled 02/11/23 by Mati Flowers MD atorvastatin 20 mg PO BEDTIME 90 days buprenorphine HCl 8 mg sublingual TID 30 days [foot brace left As directed] gabapentin 800 mg PO TID levofloxacin 500 mg PO DAILY 7 days metronidazole 500 mg PO Q8H 7 days ondansetron 4 mg PO Q8H PRN tadalafil (Cialis) 5 mg PO DAILY PRN walker As directed [wheelchair As directed] HPI HPI Comments History of Present Illness Details 48-year-old male patient with bilateral lower extremity neuropathy and footdrop presenting with a chronic callus in the ulceration on the heel of the left foot. He subsequently developed an abscess which required drainage and hospitalization. He feels much improved but still has a callus of the left foot. There has been no bleeding or discharge noted. The patient has a brace for the left foot but feels that this may be causing the callus. PFSH Medical History Abnormal barium swallow Back pain Chest pain Dyslipidemia Dysphagia Headache Helicobacter pylori (H. pylori) Insomnia Lumbar pain Lymphadenopathy Mild major depression Neuropathy Opioid use disorder Urinary incontinence Wound of left foot Surgical History History of carpal tunnel surgery of left wrist History of cystoscopy History of esophagogastroduodenoscopy (EGD) History of prostate surgery Hx of colonoscopy Hx of hernia repair Hx of prostate biopsy Family History Father Prostate cancer Social History Household Members: Spouse Housing: House Do you presently have visiting nurse or other home services: No Alcohol intake: never Patient Tobacco Use Status: Former Tobacco user Quit Date: 5 months ago Cigarette Packs Per Day: 1 e-Cigarette/Vaping Use: Currently Using Second Hand Smoke Exposure: No Substance Use Type: Marijuana service: No Current occupational status: disabled Cognitive needs: Yes (cane) Hearing needs: No Vision needs: No Review of Systems Const All systems reviewed & are unremarkable except as noted in HPI and below Physical Exam Vital Signs: Last Vital Signs Pulse 89 02/11/23 14:32 BP 134/71 02/11/23 14:32 BMI result Body Mass Index 20.7 Const General: comfortable and no acute distress Nutritional Appearance: well nourished Orientation/consciousness: patient oriented x3 Limitations: no limitations Resp Effort & Inspection: normal respiratory effort Skin General skin exam: no rashes or lesions noted Neuro General: patient oriented x3 Extrem Other: Left foot with a area of increased callus formation of the heel with no open wound, bleeding or discharge. A 15 blade was used to shave the callus some degree. A protective gauze dressing was then applied. Ankle/foot/toe images: 1. Site of callus left foot. Assessment & Plan Assessment & Plan (1) Chronic foot ulcer: Code(s): L97.509 - Non-pressure chronic ulcer of other part of unspecified foot with unspecified severity (2) Callus of heel: Code(s): L84 - Corns and callosities Plan Recommend continuing the protective dressing to the left foot to prevent increased callus formation. Patient will check with prosthetic company to see if the boot can be adjusted to decrease pressure on the heel. Follow-up in 1 month. Medications: Discontinued tadalafil 5 mg PO DAILY 90 days 90 tabs 1RF sexual activity R32 - Unspecified urinary incontinence Coding Level of Care Code Est Pt Level 3 (39519) Diagnoses Chronic foot ulcer L97.509 Callus of heel L84
[2023-02-11 14:32] VITALS: BP 134/71; PULSE 89; BMI 20.7
== END 2023-02-11 14:56 | disposition home or self-care (01) ==
PROVIDERS: PCP Internal Medicine; Visit Provider Surgery
DX: L97.529 Non-pressure chronic ulcer of other part of left foot with unspecified severity (principal); L84 Corns and callosities
CPT/HCPCS: 99213

== ENCOUNTER → 2023-02-11 14:15 | Outpatient (BNVA) | payer MEDICARE, MEDICAID, SELFPAY | PROVIDERS: PCP Internal Medicine; Visit Provider Surgery | DX: L97.529 Non-pressure chronic ulcer of other part of left foot with unspecified severity (principal); L84 Corns and callosities; G57.83 Other specified mononeuropathies of bilateral lower limbs; M21.372 Foot drop, left foot; M21.371 Foot drop, right foot; F11.20 Opioid dependence, uncomplicated | CPT/HCPCS: 99212 ==

== ENCOUNTER 2023-02-22 10:26 | Outpatient (AMB) | payer MEDICARE, MEDICAID, SELFPAY ==
--- NOTE | 2023-02-22 10:27 | MHC.PC.OV ---
Vital Signs 02/22/23 10:28 Height 6 ft 2 in Weight 167 lb BMI 21.4 BP 148/90 H Blood Pressure Location Lt brachial Position Sitting Pulse 84 Pulse Source Pulse Oximeter Pulse Oximetry (%) 100 Oxygen Delivery Method Room Air Intake Visit Reasons: TCM F/U Allergies penicillin V Allergy (Intermediate, Verified 02/22/23 10:34) hives naloxone Adverse Reaction (Intermediate, Uncoded 02/22/23 10:34) excessive night sweats Tobacco use date assessed: 11/03/22 Dental Screening Dental Screen Date: 02/22/23 Did you have a dental visit in the last 12 months?: Yes Did you have a dental problem in the last 6 months where you did not have access to dental care?: No Was dental information given to patient?: Patient has dentist HPI HPI Comments History of Present Illness Details [age] year old male past medical history significant dyslipidemia, insomnia, opiate use disorder, depression, BPH, neurogenic bladder, left footdrop history of chronic left foot ulcer. Hospital Course: Date of Service: 01/26/23 Attending physician on admission: Jono Kent Chief Complaint:? worsening left foot wound and constipation This is a 48-year-old? Afghan-speaking only male with a past medical history significant for left foot drop, BPH, opioid dependence on maintenance therapy, depression, lymphadenopathy, dysphasia, urinary incontinence, dyslipidemia amongst others as noted below presented to the emergency department with a multitude of complaints.? Patient reports that he has a left foot wound which has been draining, he was prescribed doxycycline on 01/19/2023 which he reports taking as prescribed and has 2 doses left.? He also has complaints of? worsening chronic lower back pain, constipation for the past week. CT lower left leg with contrast: Initial laboratory results:? WBC 16.3, Hgb & Hct 12.8/38.6, ESR 87, CRP 15.4, carbon dioxide 31, anion gap 11, random glucose 223, Ca 10 point, phos 127, total protein 8.8, lipase 6, urinalysis negative for infection.? Urine toxicology screen negative with the exception marijuana. In the emergency department the above was performed and patient received 30 mg ketorolac and he 100 mg p.o. gabapentin 975 mg Tylenol. The decision was made to admit patient for medical management. Of note, patient's significant other translated in Afghan per patient request. ?hospital course D/C summary Dr. Burroughs: Cellulitis of left foot with chronic left foot wound and Finegoldia bacteremia, admitted to medical floor treated with IV cefazolin and IV vancomycin on admission noted to have ESR of 87 and CRP 15.44, responded to above treatment, WBC normalized CRP trended down?seen by Dr. Pollock he recommended daily dressing changes and no debridement recommended,? re-evaluated by Dr. Ordaz 01/30 no drainage noted. blood cultures 2/? grew Finegoldia magna? previously peptostreptococcus, repeat blood cultures negative likely source skin, case discussed with ID she recommend 1 week of Flagyl and Levaquin ?Acute on Chronic back pain, noted to have no spine tenderness pain improved with NSAIDs ?Neuropathy/Footdrop continue gabapentin and outpatient appointment with PCP ?Severe opioid use disorder/dependence continue buprenorphine Constipation-? resolved continue stool softeners Dyslipidemia -continue atorvastatin. Nicotine dependence declined nicotine replacement therapy Review of the notes patient was seen by Dr. Flowers on 02/11/23 for left foot callus, left foot callus was shaved down, no drainage or open areas noted. Follow-up with prostatic to see if brace could be adjusted to prevent further recurrence of left foot callus. Patient and significant other aides in interpretation reports that he did follow up with prosthetics to have brace adjusted and have new padding applied. Prosthetics, Recommending a new prescription for prosthetic. Patient left foot callus is closed, no drainage noted. Denies fevers, chills. Completed antibiotic course. 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 [facility] Medical History Abnormal barium swallow Back pain Chest pain Dyslipidemia Dysphagia Headache Helicobacter pylori (H. pylori) Insomnia Lumbar pain Lymphadenopathy Mild major depression Neuropathy Opioid use disorder Urinary incontinence Wound of left foot Surgical History History of carpal tunnel surgery of left wrist History of cystoscopy History of esophagogastroduodenoscopy (EGD) History of prostate surgery Hx of colonoscopy Hx of hernia repair Hx of prostate biopsy Family History Father Prostate cancer Social History Household Members: Spouse Housing: House Do you presently have visiting nurse or other home services: No Alcohol intake: never Patient Tobacco Use Status: Former Tobacco user Quit Date: 5 months ago Cigarette Packs Per Day: 1 e-Cigarette/Vaping Use: Former Use Second Hand Smoke Exposure: No Substance Use Type: Marijuana service: No Current occupational status: disabled Cognitive needs: Yes (cane) Hearing needs: No Vision needs: No Questionnaire PHQ-9 Over the last 2 weeks, how often have you been bothered by any of the following problems? 1. Little interest or pleasure in doing things: not at all 2. Feeling down, depressed, or hopeless: not at all 3. Trouble falling or staying asleep, or sleeping too much: not at all 4. Feeling tired or having little energy: not at all 5. Poor appetite or overeating: not at all 6. Feeling bad about yourself - or that you are a failure or have let yourself or your family down: not at all 7. Trouble concentrating on things, such as reading the newspaper or watching television: not at all 8. Moving or speaking so slowly that other people could have noticed. Or the opposite - being so fidgety or restless that you have been moving around a lot more than usual: not at all 9. Thoughts that you would be better off or of hurting yourself in some way: not at all Total score: 0 Depression Screening Interpretation: Negative Source: Developed by Drs. Jorge Luis Parada, Vanna Williamson, Alex Javier and colleagues, with an educational christian from [employer]. Thrive Questionnaire Date Thrive assessed: 02/22/23 I am a: Patient What is your living situation today?: I have a steady place to live Within the past 12 months, did the food you bought not last and you didn't have the money to get more?: Never true Within the past 12 months, did you worry whether your food would run out before you got money to buy more?: Never true Do you have trouble paying for medicines?: No Do you have trouble getting transportation to medical appointments?: No Do you have trouble paying your heating and electricity bill?: No Do you have trouble taking care of your child, family member or friend?: No Do you have trouble with day-to-day activities such as bathing, preparing meals, shopping, managing finances, etc.?: No Are you currently unemployed and looking for a job?: No Are you interested in more education?: No Currently or been in a relationship where the following occur: no concerns reported AUDIT C Alcohol Use Questionnaire (AUDIT-C) 1. How often do you have a drink containing alcohol?: Never 3. How often do you have six or more drinks on one occasion?: Never Total Score: 0 NALLELY-7 AMB Questionnaire NALLELY-7 Date NALLELY - 7 assessed: 11/03/22 Feeling nervous, anxious, or on edge: 0 = Not at all Not being able to stop or control worryin = Not at all Worrying too much about different things: 0 = Not at all Trouble relaxin = Not at all Being so restless that it is hard to sit still: 0 = Not at all Becoming easily annoyed or irritable: 0 = Not at all Feeling afraid as if something awful might happen: 0 = Not at all Total NALLELY-7 score (0-4 normal; 5-9 mild; 10-14 moderate; 15-21 severe): 0 Source: Developed by Drs. Jorge Luis Parada, Vanna Williamson, Alex Javier and colleagues, with an educational christian from [employer]. Review of Systems Const Denies chills, Denies fatigue, Denies fever(s) and Denies poor appetite Eyes Denies no additional complaints ENT Reports Normal hearing present Card Denies chest pain, Denies syncope, Denies rapid heart rate and Denies dyspnea Resp Denies cough and Denies dyspnea GI Denies change in stool character, Denies constipation, Denies diarrhea, Denies nausea and Denies vomiting Denies dysuria, Denies urinary frequency and Denies urinary urgency Neuro Reports Normal hearing present, Denies confusion and Denies syncope Psych Denies confusion Endo Denies fatigue Physical exam (Primary Care) Vital Signs: Last Vital Signs Pulse 84 02/22/23 10:28 BP 148/90 H 02/22/23 10:28 Pulse Ox 100 02/22/23 10:28 Oxygen Delivery Method Room Air 02/22/23 10:28 BMI result Body Mass Index 21.4 Tobacco/Smoking Status: Tobacco use Status Tobacco use date assessed 11/03/22 02/22/23 10:36 Patient Tobacco Use Status Former Tobacco user 02/22/23 10:36 e-Cigarette/Vaping Use Former Use 02/22/23 10:36 PHQ-9: PHQ-9 Score PHQ-9: Total score 0 02/22/23 10:44 Depression Screening Interpretation: Negative Thrive Assessment: Date of Thrive Assessment Date Thrive assessed 02/22/23 02/22/23 10:36 Currently or been in a relationship where the following occur: no concerns reported Const General: No confusion Orientation/consciousness: No confusion HENMT Head: Yes normocephalic and Yes atraumatic Eyes Conjunctivae: conjunctivae normal Chest Chest palpation & inspection: normal inspection of the chest Resp Effort & Inspection: normal respiratory effort Auscultation: clear to auscultation bilaterally, no crackles, no rhonchi and no wheezes Cardio Rate: regular rate Rhythm: regular rhythm Heart sounds: S1 normal heart sound present and S2 normal heart sound present Peripheral pulses: dorsalis pedis present GI Inspection: Yes normal to inspection General: Yes no CVA tenderness Back/Spine/Pelvis Back: no CVA tenderness Neuro General: No confusion Cranial nerves: Yes Normal hearing present Extrem General: No edema Ankle/foot/toe images: 1. left foot callus, closed, no drainage noted and no surrounding erythema. + pulses. Assessment and Plan Assessment & Plan (1) Callus of heel: Code(s): L84 - Corns and callosities Plan: Patient has scheuled appointment with podiatry tomorrow. Left foot brace padding and straps replaced. Requesting new left foot brace, will follow up with pcp on how to order new left foot brace for patient. (2) Foot drop, left: Code(s): M21.372 - Foot drop, left foot (3) Hospital discharge follow-up: Code(s): Z09 - Encounter for follow-up examination after completed treatment for conditions other than malignant neoplasm (4) Lumbar pain: Code(s): M54.50 - Low back pain, unspecified Plan: ibuprofen 800mg take as needed with food for left lumbar back pain and lidoderm patched prescribed. Plan Keep scheduled physical with pcp in March. Medications: New lidocaine 5% (Lidoderm) leave on most painful area for up to 12 hrs 1 patch topical DAILY 15 ea 0RF M54.50 - Low back pain, unspecified ibuprofen 800 mg PO Q8H PRN 20 tabs 0RF pain M54.50 - Low back pain, unspecified Discontinued tadalafil 5 mg PO DAILY 90 days 90 tabs 1RF sexual activity R32 - Unspecified urinary incontinence Coding Level of Care Code TCM Mod MDM <= 14 Days Diagnoses Callus of heel L84 Foot drop, left M21.372 Hospital discharge follow-up Z09 Lumbar pain M54.50 Additional Codes PHQ-9 - 80282 - PHQ-9 Billing: Y ([id number])
[2023-02-22 10:28] VITALS: BP 148/90; PULSE 84; O2SAT 100; BMI 21.4
== END 2023-02-22 11:17 | disposition home or self-care (01) ==
PROVIDERS: PCP Internal Medicine; Visit Provider Nurse Practitioner Family
DX: M21.372 Foot drop, left foot (principal); M54.50 Low back pain, unspecified; Z09 Encounter for follow-up examination after completed treatment for conditions other than malignant neoplasm; L84 Corns and callosities
CPT/HCPCS: 99214

== ENCOUNTER 2023-03-10 16:04 | Outpatient (AMB) | payer MEDICARE, MEDICAID, SELFPAY ==
--- NOTE | 2023-03-10 16:05 | MHC.PC.OV ---
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 Required: No Accompanied by: Self / Same As Patient Allergies penicillin V Allergy (Intermediate, Verified 03/10/23 16:26) hives naloxone Adverse Reaction (Intermediate, Uncoded 03/10/23 16:26) excessive night sweats Medication List - Last Reconciled 03/10/23 by Gertrudis Culver MD [4x4 sterile gauze As directed] atorvastatin 20 mg PO BEDTIME 90 days buprenorphine HCl 8 mg sublingual TID 30 days [foot brace left As directed] gabapentin 800 mg PO TID ibuprofen 800 mg PO Q8H PRN [vinh roll As directed] lidocaine 5% (Lidoderm) 1 patch topical DAILY tadalafil (Cialis) 5 mg PO DAILY PRN walker As directed [wheelchair As directed] Tobacco use date assessed: 11/03/22 Dental Screening Dental Screen Date: 03/10/23 Did you have a dental visit in the last 12 months?: Yes Did you have a dental problem in the last 6 months where you did not have access to dental care?: No Was dental information given to patient?: Patient has dentist HPI HPI Comments History of Present Illness Details This is a 48-year-old male with mild major depression and opioid use disorder that comes for his physical exam. Depression has been in remission. On buprenorphine for opiate use disorder. Last colonoscopy was August 2021. No chest pain or shortness of breath. COUNT INCLUDES THE [facility] Medical History Abnormal barium swallow Back pain Chest pain Dyslipidemia Dysphagia Headache Helicobacter pylori (H. pylori) Insomnia Lumbar pain Lymphadenopathy Mild major depression Neuropathy Opioid use disorder Urinary incontinence Wound of left foot Surgical History History of carpal tunnel surgery of left wrist History of cystoscopy History of esophagogastroduodenoscopy (EGD) History of prostate surgery Hx of colonoscopy Hx of hernia repair Hx of prostate biopsy Family History Father Prostate cancer Social History Household Members: Spouse Housing: House Do you presently have visiting nurse or other home services: No Alcohol intake: never Patient Tobacco Use Status: Former Tobacco user Quit Date: 5 months ago Cigarette Packs Per Day: 1 e-Cigarette/Vaping Use: Former Use Second Hand Smoke Exposure: No Substance Use Type: Marijuana service: No Current occupational status: disabled Cognitive needs: Yes (cane) Hearing needs: No Vision needs: No Questionnaire PHQ-9 Over the last 2 weeks, how often have you been bothered by any of the following problems? 1. Little interest or pleasure in doing things: not at all 2. Feeling down, depressed, or hopeless: not at all 3. Trouble falling or staying asleep, or sleeping too much: not at all 4. Feeling tired or having little energy: not at all 5. Poor appetite or overeating: not at all 6. Feeling bad about yourself - or that you are a failure or have let yourself or your family down: not at all 7. Trouble concentrating on things, such as reading the newspaper or watching television: not at all 8. Moving or speaking so slowly that other people could have noticed. Or the opposite - being so fidgety or restless that you have been moving around a lot more than usual: not at all 9. Thoughts that you would be better off or of hurting yourself in some way: not at all Total score: 0 Depression Screening Interpretation: Negative 91651 - PHQ-9 Billing: Yes Source: Developed by Drs. Jorge Luis Parada, Vanna Williamson, Alex Javier and colleagues, with an educational christian from [employer]. Thrive Questionnaire Date Thrive assessed: 02/22/23 AUDIT C Alcohol Use Questionnaire (AUDIT-C) 1. How often do you have a drink containing alcohol?: Never Total Score: 0 NALLELY-7 AMB Questionnaire NALLELY-7 Date NALLELY - 7 assessed: 03/10/23 Feeling nervous, anxious, or on edge: 1 = Several days Not being able to stop or control worryin = Not at all Worrying too much about different things: 0 = Not at all Trouble relaxin = Not at all Being so restless that it is hard to sit still: 0 = Not at all Becoming easily annoyed or irritable: 0 = Not at all Feeling afraid as if something awful might happen: 0 = Not at all Total NALLELY-7 score (0-4 normal; 5-9 mild; 10-14 moderate; 15-21 severe): 1 Source: Developed by Drs. Jorge Luis Parada, Vanna Williamson, Alex Javier and colleagues, with an educational christian from [employer]. NALLELY-7 Assessment Billing NALLELY-7 Assessment Tool: NALLELY-7 Assessment 94492 Review of Systems Const All systems reviewed & are unremarkable except as noted in HPI and below Eyes Reports no additional complaints, Denies change in vision and Denies other visual disturbances Card Denies chest pain at rest, Denies chest pain with activity, Denies edema, Denies irregular heart rhythm, Denies claudication, Denies dyspnea, Denies dyspnea on exertion, Denies orthopnea, Denies paroxysmal nocturnal dyspnea and Denies slow heart rate Resp Denies cough, Denies dyspnea and Denies dyspnea on exertion GI Denies abdominal pain, Denies change in bowel habits, Denies excessive flatus, Denies nausea and Denies vomiting Denies urinary hesitancy, Denies urinary incontinence and Denies urinary urgency Musc Denies abnormal gait, Denies atrophy, Denies deformity and Denies limited range of motion Skin/Breast Denies bleeding lesions, Denies changing lesions and Denies rash Neuro Denies abnormal gait and Denies lack of coordination Physical exam (Primary Care) Vital Signs: Last Vital Signs BP 140/82 H 03/10/23 16:07 BMI result Body Mass Index 22.0 Tobacco/Smoking Status: Tobacco use Status Tobacco use date assessed 11/03/22 03/10/23 16:14 Patient Tobacco Use Status Former Tobacco user 03/10/23 16:14 e-Cigarette/Vaping Use Former Use 03/10/23 16:14 PHQ-9: PHQ-9 Score PHQ-9: Total score 0 03/10/23 16:30 Depression Screening Interpretation: Negative Thrive Assessment: Date of Thrive Assessment Date Thrive assessed 02/22/23 03/10/23 16:14 Const Orientation/consciousness: patient oriented x3 HENMT Head: Yes normal to inspection, Yes normocephalic and Yes atraumatic Ears: external ears normal Eyes General: appearance normal, both eyes and all related structures Eyelids: Yes eyelids normal Conjunctivae: conjunctivae normal Neck Neck: Yes normal visual inspection and Yes supple Resp Effort & Inspection: normal respiratory effort Auscultation: clear to auscultation bilaterally Cardio Jugular venous distension: no JVD Rate: regular rate Rhythm: regular rhythm Heart sounds: S1 normal heart sound present and S2 normal heart sound present GI Inspection: Yes normal to inspection Palpation (GI): Soft to palpation and nontender Auscultation: normal bowel sounds Skin General skin exam: no rashes or lesions noted Neuro General: patient oriented x3 and no focal motor deficits Extrem General: Yes full ROM Psych Appearance: grossly normal Assessment and Plan Assessment & Plan (1) Physical exam: Code(s): Z00.00 - Encounter for general adult medical examination without abnormal findings Plan: Repeat in a year (2) Mild major depression: Code(s): F32.0 - Major depressive disorder, single episode, mild Plan: In remission (3) Opioid use disorder: Comment: He has been tolerating medication well He has no complaints Code(s): F11.99 - Opioid use, unspecified with unspecified opioid-induced disorder Plan: Continue buprenorphine Orders: Orders Lipid Panel Today E78.5 - Hyperlipidemia, unspecified Comprehensive [place]. Panel Fast Today Z00.00 - Encounter for general adult medical examination without abnormal findings Medications: Refilled ibuprofen 800 mg PO Q8H PRN 20 tabs 0RF pain M54.50 - Low back pain, unspecified Discontinued tadalafil 5 mg PO DAILY 90 days 90 tabs 1RF sexual activity R32 - Unspecified urinary incontinence Coding Level of Care Code Est Pt Prev Care 40-64y(66971) Diagnoses Physical exam Z00.00 Mild major depression F32.0 Opioid use disorder F11.99 Additional Codes NALLELY-7 Assessment Billing - NALLELY-7 Assessment Tool: NALLELY-7 Assessment [id number] ([id number]) Time Spent (min) 33
[2023-03-10 16:07] VITALS: BP 140/82; BMI 22.0
[2023-03-10 18:03] VITALS: BP 138/82
== END 2023-03-10 16:46 | disposition home or self-care (01) ==
PROVIDERS: PCP Internal Medicine; Visit Provider Internal Medicine
DX: Z00.00 Encounter for general adult medical examination without abnormal findings (principal); F32.0 Major depressive disorder, single episode, mild; F11.99 Opioid use, unspecified with unspecified opioid-induced disorder
CPT/HCPCS: 99396

== ENCOUNTER 2023-07-13 15:13 | Outpatient (AMB) | payer MEDICARE, MEDICAID, SELFPAY ==
--- NOTE | 2023-07-13 15:26 | A.OFFVIS_ITS ---
Intake Intake Visit Reasons: 6m/PVR Intake Note: Patient is Present for Follow Up Urology Medication:Tadalafil Antibiotic Allergies: Penicillin Blood Thinners:None PVR: 89 Allergies penicillin V Allergy (Intermediate, Verified 03/10/23 16:26) hives naloxone Adverse Reaction (Intermediate, Uncoded 03/10/23 16:26) excessive night sweats HPI HPI Comments History of Present Illness Details Brandon is a pleasant male. He is a patient of Dr. Culver. He seen for the following urologic conditions - erectile dysfunction - lower urinary tract symptoms post lase r to prostate - family history prostate cancer - nephrolithiasis Sinhala translation provided by Feeling that he has a little more PVR in his bladder PVR today 90 cc Continue bethanechol Increased dose of Cialis to 10 mg daily 6 month review Discussed possible InterStim PSA 6 months Lower urinary tract symptoms Prior laser to prostate Enuresis and on DDAVP Erectile dysfunction Treated with Cialis - effective Nephrolithiasis Imaging [facility] Medical History Abnormal barium swallow Back pain Chest pain Dyslipidemia Dysphagia Headache Helicobacter pylori (H. pylori) Insomnia Lumbar pain Lymphadenopathy Mild major depression Neuropathy Opioid use disorder Urinary incontinence Wound of left foot Surgical History History of carpal tunnel surgery of left wrist History of cystoscopy History of esophagogastroduodenoscopy (EGD) History of prostate surgery Hx of colonoscopy Hx of hernia repair Hx of prostate biopsy Family History Father Prostate cancer Social History Household Members: Spouse Housing: House Do you presently have visiting nurse or other home services: No Alcohol intake: never Patient Tobacco Use Status: Former Tobacco user Quit Date: 5 months ago Cigarette Packs Per Day: 1 e-Cigarette/Vaping Use: Former Use Second Hand Smoke Exposure: No Substance Use Type: Marijuana service: No Current occupational status: disabled Cognitive needs: Yes (cane) Hearing needs: No Vision needs: No Office Procedures Post Void Residual Post Residual Void Post Void Residual (PVR): [id number] Void Residual by ultrasound Assessment & Plan Assessment & Plan (1) Neurogenic urinary bladder disorder: Code(s): N31.9 - Neuromuscular dysfunction of bladder, unspecified (2) Incomplete emptying of bladder due to benign prostatic hyperplasia: Code(s): N40.1 - Benign prostatic hyperplasia with lower urinary tract symptoms; R33.9 - Retention of urine, unspecified Plan Six month follow-up Orders: Orders Prostate Specific Antigen 6 Months N40.1 - Benign prostatic hyperplasia with lower urinary tract symptoms, R33.9 - Retention of urine, unspecified AMB Post Void Residual by ultrasound Today N40.1 - Benign prostatic hyperplasia with lower urinary tract symptoms, R33.9 - Retention of urine, unspecified Patient Instructions: Imaging studies, laboratory and physical exam results were discussed and reviewed in detail. No major barriers to patient understanding were identified. An opportunity to ask questions regarding the treatment plan was provided. All questions were answered. The patient expressed understanding and agreement with the above treatment plan. The patient is aware they should contact our office by phone for worsening of their current condition or the appearance of new urologic symptoms. Compliance is encouraged with any medications and followup testing that is ordered. It is a privilege to participate in the urologic care of your patient. If you have any questions or concerns regarding treatment for the above conditions, or other urologic issues, please do not hesitate to contact me. The office telephone contact is [phone]. This note is constructed using voice recognition software. While every effort has been made to ensure accuracy director of early childhood errors may have been included. Yours sincerely, Dr Panda Muñoz MD, [facility] - Urology Providers of Expert, Compassionate Care for the Genitourinary System Coding Level of Care Code Est Pt Level 4 (53312) Diagnoses Neurogenic urinary bladder disorder N31.9 Incomplete emptying of bladder due to benign prostatic hyperplasia N40.1; R33.9 CPT Codes Post Residual Void - PVR CPT Code: 06115-Wjiy Void Residual by ultrasound ([id number])
== END 2023-07-13 15:53 | disposition home or self-care (01) ==
PROVIDERS: Visit Provider Urology
DX: N31.9 Neuromuscular dysfunction of bladder, unspecified (principal); N40.1 Benign prostatic hyperplasia with lower urinary tract symptoms; R33.9 Retention of urine, unspecified
CPT/HCPCS: 99213

== ENCOUNTER → 2023-07-13 15:13 | Outpatient (BNVA) | payer MEDICARE, MEDICAID, SELFPAY | PROVIDERS: Visit Provider Urology | DX: N40.1 Benign prostatic hyperplasia with lower urinary tract symptoms (principal); R33.9 Retention of urine, unspecified; N31.9 Neuromuscular dysfunction of bladder, unspecified | CPT/HCPCS: 51798; 99212 ==

== ENCOUNTER 2023-08-04 15:53 | Outpatient (AMB) | payer MEDICARE, MEDICAID, SELFPAY ==
--- NOTE | 2023-08-04 15:55 | A.OFFPC_ITS ---
Vital Signs 08/04/23 15:57 Height 6 ft 2 in Weight 222 lb BMI 28.5 BP 136/80 Blood Pressure Location Lt brachial Position Sitting Intake Visit Reasons: SWELLING IN LEG OK PER DR DE LA ROSA Intake Note: Patient here c/o bilateral leg swelling Airport Representative Required: No Accompanied by: Spouse Allergies penicillin V Allergy (Intermediate, Verified 08/04/23 16:10) hives naloxone Adverse Reaction (Intermediate, Uncoded 08/04/23 16:10) excessive night sweats Medication List - Last Reconciled 08/04/23 by Gertrudis Culver MD [4x4 sterile gauze As directed] atorvastatin 20 mg PO BEDTIME 90 days bethanechol chloride 50 mg PO TID 90 days buprenorphine HCl 8 mg sublingual TID 30 days clotrimazole 1% 1 appl topical BID 15 days [foot brace left As directed] gabapentin 800 mg PO TID ibuprofen 800 mg PO Q8H PRN [vinh roll As directed] lidocaine 5% (Lidoderm) 1 patch topical DAILY tadalafil 10 mg PO DAILY 90 days walker As directed [wheelchair As directed] Tobacco use date assessed: 08/04/23 Dental Screening Dental Screen Date: 08/04/23 Did you have a dental visit in the last 12 months?: Yes Did you have a dental problem in the last 6 months where you did not have access to dental care?: No Was dental information given to patient?: Patient has dentist HPI HPI Comments History of Present Illness Details This is a 48-year-old male that comes with his complaining of bilateral leg swelling more prominent in the right that has been present for a bout 2 weeks. No chest pain or shortness of breath. Has left foot drop with brace. No skin redness or tenderness. He also has dyslipidemia and severe opioid dependence in sustained remission with Suboxone. Compliant with his medications. Cholesterol stable with statins. [facility] Medical History (Updated 08/04/23 @ 18:06 by Gertrudis Culver MD) Chronic foot ulcer Helicobacter pylori (H. pylori) Lumbar pain Abnormal barium swallow Mild major depression Chest pain Lymphadenopathy Headache Dysphagia Wound of left foot Dyslipidemia Urinary incontinence Insomnia Back pain Neuropathy Opioid use disorder Surgical History Hx of colonoscopy History of esophagogastroduodenoscopy (EGD) History of cystoscopy History of carpal tunnel surgery of left wrist History of prostate surgery Hx of prostate biopsy Hx of hernia repair Family History Father Prostate cancer Social History Household Members: Spouse Housing: House Do you presently have visiting nurse or other home services: No Alcohol intake: never Patient Tobacco Use Status: Former Tobacco user Quit Date: 5 months ago Cigarette Packs Per Day: 1 e-Cigarette/Vaping Use: Former Use Second Hand Smoke Exposure: No Substance Use Type: Marijuana service: No Current occupational status: disabled Cognitive needs: Yes (cane) Hearing needs: No Vision needs: No Questionnaire PHQ-9 Over the last 2 weeks, how often have you been bothered by any of the following problems? 1. Little interest or pleasure in doing things: not at all 2. Feeling down, depressed, or hopeless: not at all 3. Trouble falling or staying asleep, or sleeping too much: not at all 4. Feeling tired or having little energy: not at all 5. Poor appetite or overeating: not at all 6. Feeling bad about yourself - or that you are a failure or have let yourself or your family down: not at all 7. Trouble concentrating on things, such as reading the newspaper or watching television: not at all 8. Moving or speaking so slowly that other people could have noticed. Or the opposite - being so fidgety or restless that you have been moving around a lot more than usual: not at all 9. Thoughts that you would be better off or of hurting yourself in some way: not at all Total score: 0 Depression Screening Interpretation: Negative Depression Screening Done: Yes 34865 - PHQ-9 Billing: Yes Source: Developed by Drs. Jorge Luis Parada, Vanna Williamson, lAex Javier and colleagues, with an educational christian from [employer]. Thrive Questionnaire Date Thrive assessed: 08/04/23 I am a: Patient What is your living situation today?: I have a steady place to live Within the past 12 months, did the food you bought not last and you didn't have the money to get more?: Never true Within the past 12 months, did you worry whether your food would run out before you got money to buy more?: Never true Do you have trouble paying for medicines?: No Do you have trouble getting transportation to medical appointments?: No Do you have trouble paying your heating and electricity bill?: No Do you have trouble taking care of your child, family member or friend?: No Do you have trouble with day-to-day activities such as bathing, preparing meals, shopping, managing finances, etc.?: No Are you currently unemployed and looking for a job?: No Are you interested in more education?: No Please select the resources that you would like help with: None Currently or been in a relationship where the following occur: no concerns reported THRIVE Score: 0 AUDIT C Alcohol Use Questionnaire (AUDIT-C) 1. How often do you have a drink containing alcohol?: Never Total Score: 0 NALLELY-7 AMB Questionnaire NALLELY-7 Date NALLELY - 7 assessed: 08/04/23 Feeling nervous, anxious, or on edge: 0 = Not at all Not being able to stop or control worryin = Not at all Worrying too much about different things: 0 = Not at all Trouble relaxin = Not at all Being so restless that it is hard to sit still: 0 = Not at all Becoming easily annoyed or irritable: 0 = Not at all Feeling afraid as if something awful might happen: 0 = Not at all Total NALLELY-7 score (0-4 normal; 5-9 mild; 10-14 moderate; 15-21 severe): 0 Source: Developed by Drs. Jorge Luis Parada, Vanna Williamson, Alex Javier and colleagues, with an educational christian from [employer]. NALLELY-7 Assessment Billing NALLELY-7 Assessment Tool: NALLELY-7 Assessment 27079 Review of Systems Const All systems reviewed & are unremarkable except as noted in HPI and below Eyes Reports no additional complaints, Denies change in vision and Denies other visual disturbances Card Denies chest pain at rest, Denies chest pain with activity, Denies edema, Denies irregular heart rhythm, Denies claudication, Denies dyspnea, Denies dyspnea on exertion, Denies orthopnea, Denies paroxysmal nocturnal dyspnea and Denies slow heart rate Resp Denies cough, Denies dyspnea and Denies dyspnea on exertion GI Denies abdominal pain, Denies change in bowel habits, Denies excessive flatus, Denies nausea and Denies vomiting Denies urinary hesitancy, Denies urinary incontinence and Denies urinary urgency Musc Denies abnormal gait, Denies atrophy, Denies deformity and Denies limited range of motion Skin/Breast Denies bleeding lesions, Denies changing lesions and Denies rash Neuro Denies abnormal gait, Denies behavioral changes and Denies lack of coordination Psych Denies behavioral changes Physical exam (Primary Care) Vital Signs: Last Vital Signs BP 136/80 08/04/23 15:57 BMI result Body Mass Index 28.5 Tobacco/Smoking Status: Tobacco use Status Tobacco use date assessed 08/04/23 08/04/23 16:03 Patient Tobacco Use Status Former Tobacco user 08/04/23 15:56 e-Cigarette/Vaping Use Former Use 08/04/23 15:56 PHQ-9: PHQ-9 Score PHQ-9: Total score 0 08/04/23 16:19 Depression Screening Interpretation: Negative Thrive Assessment: Date of Thrive Assessment Date Thrive assessed 08/04/23 08/04/23 16:03 Currently or been in a relationship where the following occur: no concerns reported Eyes General: appearance normal, both eyes and all related structures Eyelids: Yes eyelids normal Conjunctivae: conjunctivae normal Neck Neck: Yes normal visual inspection and Yes supple Resp Effort & Inspection: normal respiratory effort Auscultation: clear to auscultation bilaterally Cardio Jugular venous distension: no JVD Rate: regular rate Rhythm: regular rhythm Heart sounds: S1 normal heart sound present and S2 normal heart sound present Skin General skin exam: no rashes or lesions noted Neuro Other: left foot drop Extrem Right lower extremity: lower leg Details: pitting edema Assessment and Plan Assessment & Plan (1) Right leg pain: Code(s): M79.604 - Pain in right leg Plan: Ultrasound of the leg ordered. (2) Severe opioid dependence in sustained remission on maintenance therapy: Comment: He has been doing better on tablets. He is happy to be off the shot. He is continuing counseling. Code(s): F11.21 - Opioid dependence, in remission Plan: Continue Suboxone. (3) Foot drop, left: Code(s): M21.372 - Foot drop, left foot Plan: Continue using foot brace as needed. (4) Dyslipidemia: Code(s): E78.5 - Hyperlipidemia, unspecified Plan: Continue statins. Orders: Orders IRON PROFILE Today D64.9 - Anemia, unspecified US venous duplex LE RT Today M79.604 - Pain in right leg Complete Blood Count Auto Diff Today D64.9 - Anemia, unspecified Comprehensive Met. Panel Today M79.604 - Pain in right leg Medications: Changed From gabapentin 800 mg PO TID 90 tabs 0RF To gabapentin 800 mg PO .every 6 hours 30 days 120 tabs 2RF Coding Level of Care Code Est Pt Level 4 (99783) Diagnoses Right leg pain M79.604 Severe opioid dependence in sustained remission on maintenance therapy F11.21 Foot drop, left M21.372 Dyslipidemia E78.5 Additional Codes NALLELY-7 Assessment Billing - NALLELY-7 Assessment Tool: NALLELY-7 Assessment 05210 ([id number]) Time Spent (min) 21
[2023-08-04 15:57] VITALS: BP 136/80; BMI 28.5
== END 2023-08-04 16:30 | disposition home or self-care (01) ==
PROVIDERS: PCP Internal Medicine; Visit Provider Internal Medicine
DX: R22.43 Localized swelling, mass and lump, lower limb, bilateral (principal); M21.372 Foot drop, left foot; E78.5 Hyperlipidemia, unspecified; F11.21 Opioid dependence, in remission
CPT/HCPCS: 99214

== ENCOUNTER 2023-08-04 16:37 | Outpatient (REF) | payer MEDICARE, MEDICAID, SELFPAY ==
--- NOTE | ~2023-08-04 | US_ITS ---
EXAMINATION: US VENOUS ULTRASOUND WITH DOPPLER LOWER EXTREMITY, RIGHT CLINICAL INFORMATION: Pain right leg COMPARISON: None available. TECHNIQUE: Ultrasound of the deep veins is performed from the hip to the calf with compression sonography and color and pulse Doppler assessment. Spectral analysis with color-flow imaging is performed. FINDINGS: There is normal venous compression and respiratory variation and augmented flow. The visualized common femoral vein, superficial femoral vein, profunda femoral vein, popliteal vein, and the trifurcation region shows no evidence of deep venous thrombosis. There is no significant popliteal fossa cyst. There is mild calf edema suspected. If the patient's symptoms persist, followup ultrasound in 5 days 7 days might be of value to exclude proximal propagation from a non-visualized calf vein. US/US venous duplex LE RT IMPRESSION: No DVT demonstrated in the right lower extremity. Mild calf soft tissue edema suspected.
[2023-08-04 16:54] LABS: MANUAL DIFF FLAG NO
[2023-08-04 17:42] LABS: Basophils Percent Auto 0.3 % (0-2); Eosinophils Absolute Auto 0.2 X10*3/uL (0.0-0.4); Eosinophils Percent Auto 2.1 % (0-4); Hematocrit 34.7 % (42.0-52.0); Hemoglobin 11.4 g/dl (14.0-18.0); Imm Gran Abs Auto 0.01 X10*3/uL (0.00-0.03); Imm Gran Pct Auto 0.1 % (0.0-0.4); Lymphocytes Absolute Auto 2.8 X10*3/uL (1.2-4.9); Lymphocytes Percent Auto 37.8 % (20-40); Mean Corpuscular HGB Conc 32.9 g/dl (31.0-36.0); Mean Corpuscular Hemoglobin 26.8 pg (27.0-33.0); Mean Corpuscular Volume 81.6 fL (80.0-98.0); Mean Platelet Volume 11.6 fL (9.4-12.4); Monocytes Absolute Auto 0.9 X10*3/uL (0.1-1.2); Monocytes Percent Auto 11.3 % (2-11); Neutrophils Absolute Auto 3.6 x10*3/uL (2.0-8.3); Neutrophils Percent Auto 48.4 % (45-73); Platelet Count 168 X10*3/uL (160-400); Red Blood Count 4.25 X10*6/uL (4.60-5.80); Red Cell Distribution Width 15.2 % (11.0-16.0); White Blood Count 7.5 X10*3/uL (4.8-10.8)
[2023-08-04 18:27] LABS: Alanine Aminotransferase 41 U/L (0-40); Alkaline Phosphatase 80 U/L (39-117); Anion Gap 10 (12-20); Aspartate Amino Transferase 33 U/L (5-37); Bilirubin Total 0.2 mg/dL (0.0-1.0); Blood Urea Nitrogen 13 mg/dL (9-16); Calcium 9.2 mg/dL (8.4-10.2); Carbon Dioxide 29 mmol/L (22-29); Chloride 104 mmol/L (96-108); Estimated Glomerular Filt Rate > 60; Glucose Random 98 mg/dL (60-115); Iron 50 mcg/dL (45-160); Percent Iron Saturation 16 % (15-50); Potassium 3.9 mmol/L (3.3-5.1); Sodium 139 mmol/L (135-145); Total Iron Binding Capacity 315 mcg/dL (228-428); Total Protein 7.5 g/dL (6.5-8.0); Unsaturated Iron Binding 265 ug/dL
== END 2023-08-04 16:38 | disposition home or self-care (01) ==
LOC: HO.US 16:37
PROVIDERS: PCP Internal Medicine; Visit Provider Internal Medicine
DX: D64.9 Anemia, unspecified (principal); M79.604 Pain in right leg
CPT/HCPCS: 36415; 80053; 83540; 85025; 93971

== ENCOUNTER 2023-12-09 14:10 | Outpatient (AMB) | payer MEDICARE, MEDICAID, SELFPAY ==
[2023-12-09 14:18] VITALS: BP 144/82; BMI 28.8
--- NOTE | 2023-12-09 14:18 | A.OFFPC_ITS ---
Vital Signs 12/09/23 14:18 12/10/23 09:40 Height 6 ft 2 in Weight 224 lb BMI 28.8 BP 144/82 H 140/80 H Blood Pressure Location Lt brachial Lt brachial Position Sitting Sitting Intake Visit Reasons: bellybutton infection Intake Note: Patient here c/o itchy belly button and arm rash Funding Analyst Required: No Accompanied by: Spouse Allergies penicillin V Allergy (Intermediate, Verified 12/09/23 14:25) hives naloxone Adverse Reaction (Intermediate, Uncoded 12/09/23 14:25) excessive night sweats Medication List - Last Reconciled 12/09/23 by Gertrudis Culver MD [4x4 sterile gauze As directed] atorvastatin 20 mg PO BEDTIME 90 days bethanechol chloride 50 mg PO TID 90 days buprenorphine HCl 8 mg sublingual TID 30 days clotrimazole 1% 1 appl topical BID 15 days [foot brace left As directed] gabapentin 800 mg PO .every 6 hours 30 days ibuprofen 800 mg PO Q8H PRN [vinh roll As directed] lidocaine 5% (Lidoderm) 1 patch topical DAILY tadalafil 10 mg PO DAILY 90 days walker As directed [wheelchair As directed] Tobacco use date assessed: 08/04/23 Dental Screening Dental Screen Date: 08/04/23 HPI HPI Comments History of Present Illness Details This is a 48-year-old male with neuropathy, severe opioid dependence in sustained remission and dyslipidemia that comes today accompanied by com plaining of a maculopapular pruritic rash that involved umbilicus and Flexeril areas of both arms that started a week ago. No new foods or recent travel. Neuropathy has been stable with gabapentin. On buprenorphine for his opioid dependence. On statins for his elevated cholesterol. No chest pain or shortness of breath. Blood pressure elevated and will be recheck in 3 weeks by nurse navigator. [facility] Medical History (Updated 12/10/23 @ 09:42 by Gertrudis Culver MD) Chronic foot ulcer Helicobacter pylori (H. pylori) Lumbar pain Abnormal barium swallow Mild major depression Chest pain Lymphadenopathy Headache Dysphagia Wound of left foot Dyslipidemia Urinary incontinence Insomnia Back pain Neuropathy Opioid use disorder Surgical History Hx of colonoscopy History of esophagogastroduodenoscopy (EGD) History of cystoscopy History of carpal tunnel surgery of left wrist History of prostate surgery Hx of prostate biopsy Hx of hernia repair Family History Father Prostate cancer Social History Household Members: Spouse Housing: House Do you presently have visiting nurse or other home services: No Alcohol intake: never Patient Tobacco Use Status: Former Tobacco user Cigarette Packs Per Day: 1 e-Cigarette/Vaping Use: Former Use Second Hand Smoke Exposure: No Substance Use Type: Marijuana service: No Current occupational status: disabled Cognitive needs: Yes (cane) Hearing needs: No Vision needs: No Questionnaire Thrive Questionnaire Date Thrive assessed: 08/04/23 NALLELY-7 AMB Questionnaire NALLELY-7 Date NALLELY - 7 assessed: 08/04/23 Source: Developed by Drs. Jorge Luis Parada, Vanna Williamson, Alex Javier and colleagues, with an educational christian from [employer]. Review of Systems Const All systems reviewed & are unremarkable except as noted in HPI and below Card Denies chest pain at rest, Denies chest pain with activity, Denies edema, Denies irregular heart rhythm, Denies claudication, Denies dyspnea, Denies dyspnea on exertion, Denies orthopnea, Denies paroxysmal nocturnal dyspnea and Denies slow heart rate Resp Denies cough, Denies dyspnea and Denies dyspnea on exertion Skin/Breast Denies bleeding lesions, Denies changing lesions and Reports rash Physical exam (Primary Care) Vital Signs: Last Vital Signs BP 144/82 H 12/09/23 14:18 BMI result Body Mass Index 28.8 BMI Assessment/Plan discussion: High BMI High, discussed plan: lifestyle, weight reduction, dietary and physical activity Tobacco/Smoking Status: Tobacco use Status Tobacco use date assessed 08/04/23 12/09/23 14:22 Patient Tobacco Use Status Former Tobacco user 12/09/23 14:22 e-Cigarette/Vaping Use Former Use 12/09/23 14:22 Thrive Assessment: Date of Thrive Assessment Date Thrive assessed 08/04/23 12/09/23 14:22 Resp Effort & Inspection: normal respiratory effort Auscultation: clear to auscultation bilaterally Cardio Jugular venous distension: no JVD Rate: regular rate Rhythm: regular rhythm Heart sounds: S1 normal heart sound present and S2 normal heart sound present Skin Rashes: rashes noted (umbilicus and both arms flexural area) maculopapular rash bilateral Extrem General: Yes full ROM Assessment and Plan Assessment & Plan (1) Atopic dermatitis in adult: Code(s): L20.9 - Atopic dermatitis, unspecified Plan: Start hydrocortisone cream. (2) Severe opioid dependence in sustained remission on maintenance therapy: Comment: He has been doing better on tablets. He is happy to be off the shot. He is continuing counseling. Code(s): F11.21 - Opioid dependence, in remission Plan: Continue buprenorphine. (3) Dyslipidemia: Code(s): E78.5 - Hyperlipidemia, unspecified Plan: Continue statins. (4) Neuropathy: Code(s): G62.9 - Polyneuropathy, unspecified Plan: Continue gabapentin. Orders: Referrals Dermatology Referral L20.9 - Atopic dermatitis, unspecified Medications: New hydrocortisone 2.5% 1 appl topical BID PRN 30 grams 1RF skin irritation 2 weeks L20.9 - Atopic dermatitis, unspecified Coding Level of Care Code Est Pt Level 4 (09030) Complex EM visit Add On G2211 Diagnoses Atopic dermatitis in adult L20.9 Severe opioid dependence in sustained remission on maintenance therapy F11.21 Dyslipidemia E78.5 Neuropathy G62.9 Time Spent (min) 21
[2023-12-10 09:40] VITALS: BP 140/80
== END 2023-12-09 14:36 | disposition home or self-care (01) ==
PROVIDERS: PCP Internal Medicine; Visit Provider Internal Medicine
DX: L20.9 Atopic dermatitis, unspecified (principal); F11.21 Opioid dependence, in remission; E78.5 Hyperlipidemia, unspecified; G62.9 Polyneuropathy, unspecified
CPT/HCPCS: 99214; G2211

== ENCOUNTER 2023-12-25 09:44 | Outpatient (REF) | payer MEDICARE, MEDICAID, SELFPAY ==
[2023-12-25 11:16] LABS: Prostate Specific Antigen 0.56 ng/mL (<0.05-4.0)
== END 2023-12-25 09:45 | disposition home or self-care (01) ==
LOC: HO.LAB 09:44
PROVIDERS: PCP Internal Medicine; Visit Provider Urology
DX: N40.1 Benign prostatic hyperplasia with lower urinary tract symptoms (principal); R33.9 Retention of urine, unspecified; Z12.5 Encounter for screening for malignant neoplasm of prostate
CPT/HCPCS: 36415; 84153

== ENCOUNTER 2024-01-11 15:39 | Outpatient (AMB) | payer MEDICARE, MEDICAID, SELFPAY ==
--- NOTE | 2024-01-11 15:50 | A.OFFVIS_ITS ---
Intake Visit Reasons: 6m/PSA(set) Intake Note: Patient is Present for Follow Up PSA Urology Medication: Bethanechol. Tadalafil Antibiotic Allergies:penicillin Blood Thinners: None Allergies penicillin V Allergy (Intermediate, Verified 03/13/24 16:37) hives naloxone Adverse Reaction (Intermediate, Uncoded 03/13/24 16:37) excessive night sweats Medication List - Last Reconciled 01/11/24 by Panda Muñoz MD [4x4 sterile gauze As directed] atorvastatin 20 mg PO BEDTIME 90 days bethanechol chloride 50 mg PO TID 90 days buprenorphine HCl 8 mg sublingual TID 30 days clotrimazole 1% 1 appl topical BID 15 days [foot brace left As directed] gabapentin 800 mg PO .every 6 hours 30 days hydrocortisone 2.5% 1 appl topical BID PRN 2 weeks ibuprofen 800 mg PO Q8H PRN [vinh roll As directed] lidocaine 5% (Lidoderm) 1 patch topical DAILY losartan 25 mg PO DAILY 90 days tadalafil 10 mg PO DAILY 90 days walker As directed [wheelchair As directed] HPI Comments Details: Brandon is a pleasant male. He is a patient of Dr. Culver. He seen for the following urologic conditions - erectile dysfunction - lower urinary tract symptoms post laser to prostate - family history prostate cancer - nephrolithiasis Nepali translation provided by On bethanechol Cialis 10 mg daily PSA 0.56 Previously Discussed possible InterStim Lower urinary tract symptoms Prior laser to prostate Enuresis and on DDAVP Erectile dysfunction Treated with Cialis - effective Nephrolithiasis Imaging [facility] Medical History (Updated 03/13/24 @ 20:31 by Gertrudis Culver MD) Mild major depression Chronic foot ulcer Helicobacter pylori (H. pylori) Lumbar pain Abnormal barium swallow Chest pain Lymphadenopathy Headache Dysphagia Wound of left foot Dyslipidemia Urinary incontinence Insomnia Back pain Neuropathy Opioid use disorder Surgical History Hx of colonoscopy History of esophagogastroduodenoscopy (EGD) History of cystoscopy History of carpal tunnel surgery of left wrist History of prostate surgery Hx of prostate biopsy Hx of hernia repair Family History (Updated 03/13/24 @ 16:42 by Gertrudis Culver MD) Father Prostate cancer Mother Diabetes mellitus Essential hypertension Pure hypercholesterolemia Social History Household Members: Spouse Housing: House Do you presently have visiting nurse or other home services: No Alcohol intake: never Patient Tobacco Use Status: Former Tobacco user Cigarette Packs Per Day: 1 e-Cigarette/Vaping Use: Former Use Second Hand Smoke Exposure: No Substance Use Type: Marijuana service: No Current occupational status: disabled Cognitive needs: Yes (cane) Hearing needs: No Vision needs: No Review of Systems Const Denies chills and Denies fever(s) Card Reports no additional complaints and Denies syncope Resp Denies cough GI Denies abdominal pain and Denies heartburn Reports as per HPI and Denies change in libido Neuro Denies syncope Psych Denies change in libido Endo Denies change in libido Physical Exam Const General: cooperative, healthy appearing, comfortable and no acute distress Orientation/consciousness: patient oriented x3 HEENT Face and sinus: Yes normal facial exam Mouth: moist mucous membranes Neck Neck: Yes normal visual inspection, Yes full ROM and Yes trachea midline Chest Chest palpation & inspection: normal inspection of the chest Resp Effort & Inspection: normal respiratory effort, able to speak in complete sentences and no respiratory distress GI Inspection: Yes normal to inspection Back/Spine/Pelvis Cervical Spine: normal cervical lordosis Thoracic/Lumbar Spine: thoracic and lumbar spine normal to inspection Skin General skin exam: no rashes or lesions noted Neuro General: patient oriented x3, gait normal, tone normal and moves all extremities Extrem General: Yes normal to inspection and Yes capillary refill normal Assessment & Plan Assessment & Plan (1) Neurogenic urinary bladder disorder: Code(s): N31.9 - Neuromuscular dysfunction of bladder, unspecified Category: Medical (2) Incomplete emptying of bladder due to benign prostatic hyperplasia: Code(s): N40.1 - Benign prostatic hyperplasia with lower urinary tract symptoms; R33.9 - Retention of urine, unspecified Category: Medical Plan Continue meds Medications: Refilled tadalafil 10 mg PO DAILY 90 tabs 1RF Bladder Stability 90 days N40.1 - Benign prostatic hyperplasia with lower urinary tract symptoms, R33.9 - Retention of urine, unspecified bethanechol chloride 50 mg PO TID 270 tabs 1RF 90 days N31.9 - Neuromuscular dysfunction of bladder, unspecified Patient Instructions: Imaging studies, laboratory and physical exam results were discussed and reviewed in detail. No major barriers to patient understanding were identified. An opportunity to ask questions regarding the treatment plan was provided. All questions were answered. The patient expressed understanding and agreement with the above treatment plan. The patient is aware they should contact our office by phone for worsening of their current condition or the appearance of new urologic symptoms. Compliance is encouraged with any medications and followup testing that is ordered. It is a privilege to participate in the urologic care of your patient. If you have any questions or concerns regarding treatment for the above conditions, or other urologic issues, please do not hesitate to contact me. The office telephone contact is [phone]. This note is constructed using voice recognition software. While every effort has been made to ensure accuracy corduroy cutter operator errors may have been included. Yours sincerely, Dr Panda Muñoz MD, [facility] Providers of Expert, Compassionate Care for the Genitourinary System Coding Level of Care Code Est Pt Level 3 (33570) Diagnoses Neurogenic urinary bladder disorder N31.9 Incomplete emptying of bladder due to benign prostatic hyperplasia N40.1; R33.9
== END 2024-01-11 16:13 | disposition home or self-care (01) ==
PROVIDERS: PCP Internal Medicine; Visit Provider Urology
DX: N31.9 Neuromuscular dysfunction of bladder, unspecified (principal); N40.1 Benign prostatic hyperplasia with lower urinary tract symptoms; R33.9 Retention of urine, unspecified
CPT/HCPCS: 99213

== ENCOUNTER → 2024-01-11 15:39 | Outpatient (BNVA) | payer MEDICARE, MEDICAID, SELFPAY | PROVIDERS: PCP Internal Medicine; Visit Provider Urology | DX: N40.1 Benign prostatic hyperplasia with lower urinary tract symptoms (principal); N31.9 Neuromuscular dysfunction of bladder, unspecified; R33.9 Retention of urine, unspecified | CPT/HCPCS: 99212 ==

== ENCOUNTER 2024-03-13 16:04 | Outpatient (AMB) | payer MEDICARE, MEDICAID, SELFPAY ==
--- NOTE | 2024-03-13 16:15 | A.OFFPC_ITS ---
Vital Signs 03/13/24 16:16 Height 6 ft 2 in Weight 235 lb BMI 30.2 BP 132/76 Blood Pressure Location Lt brachial Position Sitting Intake Visit Reasons: pe Intake Note: Patient here for a physical exam Baseball Winder Required: No Accompanied by: Spouse Allergies penicillin V Allergy (Intermediate, Verified 03/13/24 16:37) hives naloxone Adverse Reaction (Intermediate, Uncoded 03/13/24 16:37) excessive night sweats Medication List - Last Reconciled 03/13/24 by Gertrudis Culver MD [4x4 sterile gauze As directed] atorvastatin 20 mg PO BEDTIME 90 days bethanechol chloride 50 mg PO TID 90 days buprenorphine HCl 8 mg sublingual TID 30 days clotrimazole 1% 1 appl topical BID 15 days [foot brace left As directed] gabapentin 800 mg PO .every 6 hours 30 days hydrocortisone 2.5% 1 appl topical BID PRN 2 weeks ibuprofen 800 mg PO Q8H PRN [vinh roll As directed] lidocaine 5% (Lidoderm) 1 patch topical DAILY losartan 25 mg PO DAILY 90 days tadalafil 10 mg PO DAILY 90 days walker As directed [wheelchair As directed] Tobacco use date assessed: 08/04/23 Dental Screening Dental Screen Date: 08/04/23 Did you have a dental visit in the last 12 months?: No Did you have a dental problem in the last 6 months where you did not have access to dental care?: No Was dental information given to patient?: Patient has dentist HPI HPI Comments History of Present Illness Details This is a 49-year-old male with severe opioid dependence in sustained remission and mild major depression that comes accompanied by for his physical exam. On Suboxone for his opioid dependence and is doing well. Depression has been stable and does have 3 emotional support animals at home. No chest pain or shortness on breath. [facility] Medical History (Updated 03/13/24 @ 20:31 by Gertrudis Culver MD) Mild major depression Chronic foot ulcer Helicobacter pylori (H. pylori) Lumbar pain Abnormal barium swallow Chest pain Lymphadenopathy Headache Dysphagia Wound of left foot Dyslipidemia Urinary incontinence Insomnia Back pain Neuropathy Opioid use disorder Surgical History Hx of colonoscopy History of esophagogastroduodenoscopy (EGD) History of cystoscopy History of carpal tunnel surgery of left wrist History of prostate surgery Hx of prostate biopsy Hx of hernia repair Family History (Updated 03/13/24 @ 16:42 by Gretrudis Culver MD) Father Prostate cancer Mother Diabetes mellitus Essential hypertension Pure hypercholesterolemia Social History Household Members: Spouse Housing: House Do you presently have visiting nurse or other home services: No Alcohol intake: never Patient Tobacco Use Status: Former Tobacco user Cigarette Packs Per Day: 1 e-Cigarette/Vaping Use: Former Use Second Hand Smoke Exposure: No Substance Use Type: Marijuana service: No Current occupational status: disabled Cognitive needs: Yes (cane) Hearing needs: No Vision needs: No Questionnaire PHQ-9 Over the last 2 weeks, how often have you been bothered by any of the following problems? 1. Little interest or pleasure in doing things: several days 2. Feeling down, depressed, or hopeless: several days 3. Trouble falling or staying asleep, or sleeping too much: several days 4. Feeling tired or having little energy: several days 5. Poor appetite or overeating: not at all 6. Feeling bad about yourself - or that you are a failure or have let yourself or your family down: not at all 7. Trouble concentrating on things, such as reading the newspaper or watching television: not at all 8. Moving or speaking so slowly that other people could have noticed. Or the opposite - being so fidgety or restless that you have been moving around a lot more than usual: not at all 9. Thoughts that you would be better off or of hurting yourself in some way: not at all Total score: 4 Depression Screening Interpretation: Positive Depression Screening Follow-up: Existing condition, In treatment and Follow-up Visit Requested Depression Screening Done: Yes [id number] - PHQ-9 Billing: Yes Source: Developed by Drs. Jorge Luis Parada, Vanna Williamson, Alex Javier and colleagues, with an educational christian from [employer]. Thrive Questionnaire Date Thrive assessed: 03/13/24 I am a: Patient What is your living situation today?: I choose not to answer this question Within the past 12 months, did the food you bought not last and you didn't have the money to get more?: I choose not to answer this question Within the past 12 months, did you worry whether your food would run out before you got money to buy more?: I choose not to answer this question Do you have trouble paying for medicines?: No Do you have trouble getting transportation to medical appointments?: No Do you have trouble paying your heating and electricity bill?: No Do you have trouble taking care of your child, family member or friend?: I choose not to answer this question Do you have trouble with day-to-day activities such as bathing, preparing meals, shopping, managing finances, etc.?: Yes Are you currently unemployed and looking for a job?: I choose not to answer this question Are you interested in more education?: I choose not to answer this question Please select the resources that you would like help with: None Currently or been in a relationship where the following occur: I choose not to answer THRIVE Score: 0 AUDIT C Alcohol Use Questionnaire (AUDIT-C) 1. How often do you have a drink containing alcohol?: Never Total Score: 0 Score Reviewed/Action Taken: No NALLELY-7 AMB Questionnaire NALLELY-7 Date NALLELY - 7 assessed: 03/13/24 Feeling nervous, anxious, or on edge: 1 = Several days Not being able to stop or control worryin = Several days Worrying too much about different things: 1 = Several days Trouble relaxin = Several days Being so restless that it is hard to sit still: 0 = Not at all Becoming easily annoyed or irritable: 1 = Several days Feeling afraid as if something awful might happen: 0 = Not at all Total NALLELY-7 score (0-4 normal; 5-9 mild; 10-14 moderate; 15-21 severe): 5 Source: Developed by Drs. Jorge Luis Parada, Vanna Williamson, Alex Javier and colleagues, with an educational christian from [employer]. NALLELY-7 Assessment Billing NALLELY-7 Assessment Tool: NALLELY-7 Assessment 58953 Review of Systems Const All systems reviewed & are unremarkable except as noted in HPI and below Card Denies chest pain at rest, Denies chest pain with activity, Denies edema, Denies irregular heart rhythm, Denies claudication, Denies dyspnea, Denies dyspnea on exertion, Denies orthopnea, Denies paroxysmal nocturnal dyspnea and Denies slow heart rate Resp Denies cough, Denies dyspnea and Denies dyspnea on exertion GI Denies abdominal pain, Denies change in bowel habits, Denies excessive flatus, Denies nausea and Denies vomiting Denies urinary hesitancy, Denies urinary incontinence and Denies urinary urgency Musc Denies abnormal gait, Denies atrophy, Denies deformity and Denies limited range of motion Skin/Breast Denies bleeding lesions, Denies changing lesions and Denies rash Neuro Denies abnormal gait, Denies behavioral changes and Denies lack of coordination Psych Denies behavioral changes Physical exam (Primary Care) Vital Signs: Last Vital Signs BP 132/76 03/13/24 16:16 BMI result Body Mass Index 30.2 Tobacco/Smoking Status: Tobacco use Status Tobacco use date assessed 08/04/23 03/13/24 16:22 Patient Tobacco Use Status Former Tobacco user 03/13/24 16:22 e-Cigarette/Vaping Use Former Use 03/13/24 16:22 PHQ-9: PHQ-9 Score PHQ-9: Total score 4 03/13/24 16:33 Depression Screening Interpretation: Positive Depression Screening Follow-up: Existing condition, In treatment and Follow-up Visit Requested Thrive Assessment: Date of Thrive Assessment Date Thrive assessed 03/13/24 03/13/24 16:22 Currently or been in a relationship where the following occur: I choose not to answer HENTN Head: Yes normal to inspection, Yes normocephalic and Yes atraumatic Ears: external ears normal Eyes General: appearance normal, both eyes and all related structures Eyelids: Yes eyelids normal Conjunctivae: conjunctivae normal Neck Neck: Yes normal visual inspection and Yes supple Resp Effort & Inspection: normal respiratory effort Auscultation: clear to auscultation bilaterally Cardio Jugular venous distension: no JVD Rate: regular rate Rhythm: regular rhythm Heart sounds: S1 normal heart sound present and S2 normal heart sound present GI Inspection: Yes normal to inspection Palpation (GI): Soft to palpation and nontender Auscultation: normal bowel sounds Skin General skin exam: no rashes or lesions noted Neuro General: no focal motor deficits Extrem General: Yes full ROM Psych Appearance: grossly normal Assessment and Plan Assessment & Plan (1) Physical exam: Code(s): Z00.00 - Encounter for general adult medical examination without abnormal findings Plan: Repeat in a year. (2) Severe opioid dependence in sustained remission on maintenance therapy: Comment: He has been doing better on tablets. He is happy to be off the shot. He is continuing counseling. Code(s): F11.21 - Opioid dependence, in remission Plan: Continue Suboxone. (3) Mild major depression: Code(s): F32.0 - Major depressive disorder, single episode, mild Plan: Continue counseling. Continue to live with support animals. Orders: Orders Lipid Panel Today E78.5 - Hyperlipidemia, unspecified Comprehensive [place]. Panel Fast Today Z00.00 - Encounter for general adult medical examination without abnormal findings Medications: New omeprazole 20 mg PO DAILY 90 caps 0RF 90 days Coding Level of Care Code Est Pt Prev Care 40-64y(48297) Diagnoses Physical exam Z00.00 Severe opioid dependence in sustained remission on maintenance therapy F11.21 Mild major depression F32.0 Additional Codes NALLELY-7 Assessment Billing - NALLELY-7 Assessment Tool: NALLELY-7 Assessment 97339 ([id number]) Time Spent (min) 30
[2024-03-13 16:16] VITALS: BP 132/76; BMI 30.2
== END 2024-03-13 16:53 | disposition home or self-care (01) ==
PROVIDERS: PCP Internal Medicine; Visit Provider Internal Medicine
DX: Z00.00 Encounter for general adult medical examination without abnormal findings (principal); F11.21 Opioid dependence, in remission; F32.0 Major depressive disorder, single episode, mild
CPT/HCPCS: 99396

== ENCOUNTER 2024-07-08 09:59 | Outpatient (REF) | payer MEDICARE, MEDICAID, SELFPAY ==
[2024-07-08 11:36] LABS: Alanine Aminotransferase 55 U/L (0-40); Albumin Level 4.2 g/dL (3.5-5.0); Alkaline Phosphatase 116 U/L (39-117); Anion Gap 11 (12-20); Aspartate Amino Transferase 39 U/L (5-37); Bilirubin Total 0.3 mg/dL (0.0-1.0); Blood Urea Nitrogen 17 mg/dL (9-16); Calcium 9.3 mg/dL (8.4-10.2); Carbon Dioxide 27 mmol/L (22-29); Chloride 107 mmol/L (96-108); Cholesterol 158 mg/dL (<200); Estimated Glomerular Filt Rate > 60; Glucose Fasting 113 mg/dL (60-99); HDL Cholesterol 42 mg/dL (>40); LDL Cholesterol Calculated 64 mg/dL (<100); Potassium 3.9 mmol/L (3.3-5.1); Sodium 141 mmol/L (135-145); Total Protein 7.8 g/dL (6.5-8.0); Triglycerides 263 mg/dL (<150)
== END 2024-07-08 10:00 | disposition home or self-care (01) ==
LOC: HO.LAB 09:59
PROVIDERS: PCP Internal Medicine; Visit Provider Internal Medicine
DX: Z00.00 Encounter for general adult medical examination without abnormal findings (principal); E78.5 Hyperlipidemia, unspecified
CPT/HCPCS: 36415; 80053; 80061

== ENCOUNTER 2024-07-10 15:26 | Outpatient (AMB) | payer MEDICARE, MEDICAID, SELFPAY ==
--- NOTE | 2024-07-10 15:45 | A.OFFVIS_ITS ---
Intake Visit Reasons: 6m/PVR Intake Note: Patient presents today for follow up on: incomplete bladder emptying, neurogenic bladder Urology Medication: Bethanechol. Tadalafil Antibiotic Allergies:penicillin Blood Thinners: None PVR: 80ml's Religious Education Coordinator Required: No Accompanied by: Unknown Allergies penicillin V Allergy (Intermediate, Verified 07/10/24 20:29) hives naloxone Adverse Reaction (Intermediate, Uncoded 07/10/24 20:29) excessive night sweats Medication List - Last Reconciled 07/10/24 by MAKI ClementsBC [4x4 sterile gauze As directed] alprazolam 0.5 mg PO DAILY PRN 1 day atorvastatin 20 mg PO BEDTIME 90 days bethanechol chloride 50 mg PO TID 90 days buprenorphine HCl 8 mg sublingual TID 30 days clotrimazole 1% 1 appl topical BID 15 days [foot brace left As directed] gabapentin 800 mg PO .every 6 hours 30 days ibuprofen 800 mg PO Q8H PRN [vinh roll As directed] tadalafil 10 mg PO DAILY 90 days walker As directed [wheelchair As directed] HPI Comments Details: Brandon is a pleasant 49-year-old Armenian-speaking male patient of Dr. Durham was accompanied by his at today's office visit. He has a past medical history of depression, H pylori, lumbar pain, lymphadenopathy, headache, dysphagia, dyslipidemia, insomnia, neuropathy, and opioid use disorder in remission. He presents to the office today for follow-up of his erectile dysfunction, family history of prostate,, nephrolithiasis, and lower urinary tract symptoms. In discussion with the patient and his today he reports compliance with bethanechol and tadalafil as prescribed. He reports at times he feels episodes of incomplete bladder emptying however this is upon standing with urination. He reports when he sits to void he does not experienced these issues. PSAs are as follows: 12/26 0.6 In office urinalysis results reviewed with the patient and his today. PVR 80 mL. He discusses his previous prior laser procedure with Dr. Grewal many years ago. We discussed further treatment options to include in office urodynamics for further assessment evaluation. He discusses continuing to think about potential InterStim for his lower urinary tract symptoms however is hesitant as he feels this will affect his ongoing/chronic back pain. He otherwise denies hematuria, dysuria, foul smelling urine, flank pain, fever, and or chills. [facility] Medical History Mild major depression Chronic foot ulcer Helicobacter pylori (H. pylori) Lumbar pain Abnormal barium swallow Chest pain Lymphadenopathy Headache Dysphagia Wound of left foot Dyslipidemia Urinary incontinence Insomnia Back pain Neuropathy Opioid use disorder Surgical History Hx of colonoscopy History of esophagogastroduodenoscopy (EGD) History of cystoscopy History of carpal tunnel surgery of left wrist History of prostate surgery Hx of prostate biopsy Hx of hernia repair Family History Father Prostate cancer Mother Diabetes mellitus Essential hypertension Pure hypercholesterolemia Social History Household Members: Spouse Housing: House Do you presently have visiting nurse or other home services: No Alcohol intake: never Patient Tobacco Use Status: Former Tobacco user Cigarette Packs Per Day: 1 e-Cigarette/Vaping Use: Former Use Second Hand Smoke Exposure: No Substance Use Type: Marijuana service: No Current occupational status: disabled Cognitive needs: Yes (cane) Hearing needs: No Vision needs: No Review of Systems Const Reports no additional complaints Eyes Reports no additional complaints ENT Reports no additional complaints Card Reports as per HPI Resp Reports no additional complaints GI Reports as per HPI Reports as per HPI Musc Reports as per HPI Neuro Reports as per HPI Psych Reports as per HPI Endo Reports as per HPI Physical Exam Const General: cooperative, healthy appearing, comfortable, no acute distress, well developed, alert and awake Orientation/consciousness: patient oriented x3 Limitations: ambulation with cane HEENT Head: Yes normal to inspection, Yes normocephalic and Yes atraumatic Ears: hearing grossly normal bilaterally Eyes General: appearance normal, both eyes and all related structures Neck Neck: Yes normal visual inspection and Yes trachea midline Chest Chest palpation & inspection: normal inspection of the chest Resp Effort & Inspection: normal respiratory effort and able to speak in complete sentences Cardio Rate: regular rate GI Inspection: Yes normal to inspection General: Yes no CVA tenderness Back/Spine/Pelvis Back: no CVA tenderness Skin General skin exam: no rashes or lesions noted Neuro General: patient oriented x3 Extrem General: Yes normal to inspection Psych Appearance: grossly normal and well kempt Mental Status: mental status grossly normal Speech and movement: Normal speech and movement present and Clear speech present Affect: normal affect Attitude: cooperative Thought process: Normal thought process present Thought content: Normal thought content present Office Procedures Post Void Residual Post Residual Void Post Void Residual (PVR): 80 03214-Dfot Void Residual by ultrasound Results AMB Urinalysis, Automated UA Leukoctes 0 Maximo/uL Last Edit by [employer] on 07/10/24 16:04 UA Nitrite Last Edit by [employer] on 07/10/24 16:04 UA Urobilinogen 0.2 mg/dL Last Edit by [employer] on 07/10/24 16:04 UA Protein 15 mg/dL Last Edit by [employer] on 07/10/24 16:04 UA pH 6.0 Last Edit by [employer] on 07/10/24 16:04 UA Blood 10 Sharath/uL Last Edit by [employer] on 07/10/24 16:04 UA Specific [place] 1.025 Last Edit by [employer] on 07/10/24 16:04 UA Ketone Last Edit by [employer] on 07/10/24 16:04 UA Bilirubin 0 mg/dL Last Edit by [employer] on 07/10/24 16:04 UA Glucose 0 mg/dL Last Edit by [employer] on 07/10/24 16:04 Results Reviewed Results Reviewed: Laboratory Last Values Urine pH (Auto) 6.0 07/10/24 15:50 Specific [place] (Auto) 1.025 07/10/24 15:50 Urine Protein (Auto) 15 mg/dL 07/10/24 15:50 Glucose (UA)(Auto) 0 mg/dL 07/10/24 15:50 Urine Blood (Auto) 10 Sharath/uL 07/10/24 15:50 Urine Bilirubin (Auto) 0 mg/dL 07/10/24 15:50 Urine Urobilinogen (Auto) 0.2 mg/dL 07/10/24 15:50 Leukocyte Esterase (Auto) 0 Maximo/uL 07/10/24 15:50 Assessment & Plan Assessment & Plan (1) Family history of prostate cancer: Code(s): Z80.42 - Family history of malignant neoplasm of prostate Category: Medical (2) Neurogenic urinary bladder disorder: Code(s): N31.9 - Neuromuscular dysfunction of bladder, unspecified Category: Medical (3) Incomplete emptying of bladder due to benign prostatic hyperplasia: Code(s): N40.1 - Benign prostatic hyperplasia with lower urinary tract symptoms; R33.9 - Retention of urine, unspecified Category: Medical Plan In office urinalysis results reviewed with the patient today; as noted above. PVR 80 mL. We discussed further treatment options to include in office urodynamics for further assessment evaluation. Information provided regarding InterStim Continue bethanechol and tadalafil as ordered. We discussed attempting to sit when voiding to relax pelvis and assist with incomplete bladder emptying. Will continue with surveillance monitoring of nephrolithiasis as well as PSAs. Follow-up in 6 months with PSA and PVR; or sooner with any issues, concerns, and or questions. Orders: Orders AMB Urinalysis Automated Today Z13.9 - Encounter for screening, unspecified AMB Post Void Residual by ultrasound Today N31.9 - Neuromuscular dysfunction of bladder, unspecified Prostate Specific Antigen Today N40.1 - Benign prostatic hyperplasia with lower urinary tract symptoms, R33.9 - Retention of urine, unspecified, Z80.42 - Family history of malignant neoplasm of prostate US retroperitoneal comp 6 Months N31.9 - Neuromuscular dysfunction of bladder, unspecified, N40.1 - Benign prostatic hyperplasia with lower urinary tract symptoms, R33.9 - Retention of urine, unspecified Patient Instructions: The patient had an opportunity to ask questions regarding the treatment plan. All questions were answered. Physical exam, labs, and imaging were discussed and reviewed in detail. As well as risks, benefits, and discussion of treatment choices. No major barriers to understanding were identified. The patient expressed understanding and agreement with the above treatment plan. The patient was made aware they should contact our office by phone for worsening of their current condition, the appearance of new symptoms, or with any questions or concerns. Compliance is encouraged with any medications and follow up testing that is ordered. It is a privilege to be allowed the opportunity to participate in? your urological care.? Again, if you have any questions or concerns If you have any questions or concerns please do not hesitate to contact me. The office is [phone]. This note is constructed using voice recognition software. While every effort has been made to ensure accuracy manager meeting errors may have been included. Yours sincerely, CASSANDRA Clements Coding Level of Care Code Est Pt Level 3 (87837) Complex EM visit Add On G2211 Diagnoses Family history of prostate cancer Z80.42 Neurogenic urinary bladder disorder N31.9 Incomplete emptying of bladder due to benign prostatic hyperplasia N40.1; R33.9 CPT Codes Post Residual Void - PVR CPT Code: 55427-Xykw Void Residual by ultrasound ([id number])
== END 2024-07-10 16:22 | disposition home or self-care (01) ==
PROVIDERS: PCP Internal Medicine; Visit Provider Nurse Practitioner Family
DX: Z80.42 Family history of malignant neoplasm of prostate (principal); N31.9 Neuromuscular dysfunction of bladder, unspecified; N40.1 Benign prostatic hyperplasia with lower urinary tract symptoms; R33.9 Retention of urine, unspecified; Z13.9 Encounter for screening, unspecified
CPT/HCPCS: 99213; G2211

== ENCOUNTER 2024-07-16 15:24 | Emergency (ER) | payer MEDICARE, MEDICAID, SELFPAY ==
--- NOTE | 2024-07-16 | ECG_ITS ---
Test Reason : CHEST PAIN Blood Pressure : */* mmHG Vent. Rate : 123 BPM Atrial Rate : 123 BPM P-R Int : 166 ms QRS Dur : 88 ms QT Int : 294 ms P-R-T Axes : 44 53 -5 degrees QTcB Int : 420 ms Sinus tachycardia Brugada pattern, type 1 Abnormal ECG When compared with ECG of 20-Jan-2021 14:37, Vent. rate has increased by 62 bpm QRS duration has decreased ST no longer elevated in Inferior leads ST elevation now present in Anterior leads Inverted T waves have replaced nonspecific T wave abnormality in Inferior leads T wave inversion now evident in Anterior leads Referred By: Generic ED Physician Electronically Signed By: Don Torres
--- NOTE | ~2024-07-16 | XR_ITS ---
CLINICAL HISTORY: cp Chest Radiographs, AP Comparison: 09/27/18 Findings: No cardiomegaly. Normal mediastinal contours. No pneumothorax. No opacity. No pleural effusion. Normal upper abdomen. No acute fracture. Impression: No acute findings. This document has been electronically signed by: Pauline Recio MD on 07/16/2024 16:47:21
[2024-07-16 15:44] VITALS: BP 140/79; PULSE 126; RESP 19; O2SAT 94
--- NOTE | 2024-07-16 15:48 | ECG_ITS ---
Test Reason : STEMI Blood Pressure : */* mmHG Vent. Rate : 125 BPM Atrial Rate : 125 BPM P-R Int : 168 ms QRS Dur : 84 ms QT Int : 288 ms P-R-T Axes : 52 62 -2 degrees QTcB Int : 415 ms Sinus tachycardia Brugada pattern, type 1 T wave abnormality, consider inferior ischemia Abnormal ECG When compared with ECG of 16-Jul-2024 15:33, ST less elevated in Anterior leads Referred By: Susie Calhoun Electronically Signed By: Don Torres
[2024-07-16 15:51] VITALS: BP 140/79; PULSE 123; RESP 20; O2SAT 94; BMI 32.3
[2024-07-16] MEDS: Ticagrelor 90 MG TABLET 180 MG PO (15:55)
[2024-07-16] MEDS: Aspirin 81 MG TAB.CHEW 324 MG PO (15:56)
[2024-07-16] MEDS: Heparin Sodium,Porcine 5,000 UNIT/ML VIAL 4300 UNIT IVPUSH (15:57)
[2024-07-16 16:00] VITALS: BP 108/57; PULSE 123; RESP 18; O2SAT 95
--- NOTE | 2024-07-16 16:00 | ED.CHESTPAIN ---
HPI - Chest Pain General Chief Complaint: Chest Pain Stated Complaint: chest pain, back pain Time Seen by Provider: 07/16/24 15:40 History of Present Illness HPI narrative: Patient is a 49-year-old male presents today with having chest pain. The chest pain started this morning. It is associated with shortness of breath and diaphoresis. Has a history of prediabetes, hypertension, high cholesterol, smoking. Patient never had a stress test done in the past. Positive diaphoresis positive shortness of breath positive tightness to the chest. Came to the ED for help. Related Data Previous Rx's ?Medication ?Instructions ?Recorded buprenorphine HCl 8 mg sublingual 8 mg sublingual TID 30 days #90 07/15/21 tablet tabs wheelchair #1 ea 01/20/22 walker #1 ea 02/01/23 4x4 sterile gauze #1 ea 02/11/23 vinh roll #30 ea 02/11/23 ibuprofen 800 mg tablet 800 mg PO Q8H PRN pain #20 tabs 03/10/23 foot brace left #1 ea 03/16/23 clotrimazole 1 % topical cream 1 appl topical BID 15 days #45 05/03/23 grams alprazolam 0.5 mg tablet 0.5 mg PO DAILY PRN anxiety 1 day 04/19/24 #1 tab gabapentin 800 mg tablet 800 mg PO .every 6 hours 30 days 05/08/24 #120 tabs atorvastatin 20 mg tablet 20 mg PO BEDTIME 90 days #90 tabs 06/24/24 bethanechol chloride 50 mg tablet 50 mg PO TID 90 days #270 tabs 07/10/24 tadalafil 10 mg tablet 10 mg PO DAILY Bladder Stability 07/10/24 90 days #90 tabs Allergies Allergy/AdvReac Type Severity Reaction Status Date / Time penicillin V Allergy Intermediate hives Verified 07/16/24 15:52 naloxone AdvReac Intermediate excessive Uncoded 07/16/24 15:52 night sweats Review of Systems Review of Systems: Positive chest pain positive shortness of breath Yes all other systems are reviewed and are negative PMFSH Past Medical History Attestation statement: The following information was validated with the patient. Medical History Family history of prostate cancer Mild major depression Chronic foot ulcer Helicobacter pylori (H. pylori) Lumbar pain Abnormal barium swallow Chest pain Lymphadenopathy Headache Dysphagia Wound of left foot Dyslipidemia Urinary incontinence Insomnia Back pain Neuropathy Opioid use disorder Surgical History Hx of colonoscopy History of esophagogastroduodenoscopy (EGD) History of cystoscopy History of carpal tunnel surgery of left wrist History of prostate surgery Hx of prostate biopsy Hx of hernia repair Family History Family History Father Prostate cancer Mother Diabetes mellitus Essential hypertension Pure hypercholesterolemia Social History Social History Household Members: Spouse Housing: House Do you presently have visiting nurse or other home services: No Alcohol intake: never Patient Tobacco Use Status: Former Tobacco user Cigarette Packs Per Day: 1 e-Cigarette/Vaping Use: Former Use Second Hand Smoke Exposure: No Substance Use Type: Marijuana service: No Current occupational status: disabled Cognitive needs: Yes (cane) Hearing needs: No Vision needs: No Physical Exam Vital Signs: Vital Signs: Last Vital Signs Pulse 123 H 07/16/24 16:00 Resp 18 07/16/24 16:00 BP 108/57 L 07/16/24 16:00 Pulse Ox 95 07/16/24 16:00 O2 Del Method Room Air 07/16/24 16:00 BMI result Body Mass Index 32.3 Appearance: Alert. Oriented X3. No acute distress. Eyes: Pupils equal, round and reactive to light. ENT: Pharynx normal. Neck: Normal inspection. Neck supple. No lymph nodes noted. No crepitus CVS: Normal heart rate and rhythm. Pulses normal. Normal S1 and S2 Respiratory: No respiratory distress. Breath sounds normal. No Wheezing. No rales Abdomen: Soft and nontender. No rigidity. No distention. good BS x4 Skin: Skin warm and dry. Normal skin color. Normal skin turgor. Extremities: No lower extremity edema. Neurovascular intact to all extremities. No Lacerations. No Rash Neuro: Oriented X 3. No motor deficit. No sensory deficit. Moving all extermities. No slurred speech Medications Administered Generic Name Dose Route Start Last Admin Trade Name Freq PRN Reason Stop Dose Admin Heparin Sodium (Porcine) 4,300 unit 07/16/24 15:52 07/16/24 15:57 Heparin Sodium,Porcine 5,000 Unit/Ml Vial 40 unit/kg (4300 unit) 4,300 unit IVPUSH Administration PROTOCOL BOLUS PRN 40 unit/kg - Heparin Protocol Discontinued Medications Generic Name Dose Route Start Last Admin Trade Name Francoise PRN Reason Stop Dose Admin Aspirin 324 mg 07/16/24 15:52 07/16/24 15:56 Aspirin 81 Mg Tab.Chew PO 07/16/24 15:53 324 mg ONCE ONE Administration Ticagrelor 180 mg 07/16/24 15:52 07/16/24 15:55 Ticagrelor 90 Mg Tablet PO 07/16/24 15:53 180 mg ONCE ONE Administration Medical Decision Making Medical Decision Making MDM Narrative: Additional history obtained through the inside polisher. My interpretation of patient's initial EKG showed a sinus pattern heart rate was 120 [place] is normal QRS is normal QTC was normal there is significant ST segment elevation over the anterior and septal leads with laterally to having ST segment depression. Upon reviewing this EKG and speaking with the patient I immediately activated the construction laborer team. Case discussed with Dr. Tee at [facility]. A copy of the old EKG along with the EKGs that we obtained was text to him. Agreed that patient likely has a STEMI. Patient was started on Brilinta, aspirin, heparin bolus. Risk and benefit of transfer discussed with patient. Family made aware. Care Taker was at bedside. Patient being transferred to [facility]. Differential Diagnosis Differential Diagnoses: The differential diagnosis associated with the presentation includes STEMI versus dissection versus atypical chest pain versus NSTEMI Admission/Observation Consideration of admission/observation: Escalation of care including admission/observation considered Consult Healthcare Provider Management of the patient was discussed with: Health Policy Manager (Cash Applications Analyst at [facility]) Independent Interpretation I performed an independent interpretation of an: EKG (My interpretation of patient's initial EKG at 15:33 showed a sinus rhythm heart rate was [address] segment elevation over V1 V2 V3 with ST segment depression in the lateral leads V5 and V6. A repeat EKG was obtained at 15:50. ST segment elevation still present in V1 and V2 with ST se), Rhythm Strip (Sinus) and Plain X-Ray Independent Historian Clinical information obtained from an independent historian. History obtained from or confirmed by: Spouse External Record Review External record reviewed: Office record Chronic Conditions Patient?s care impacted by: Diabetes and Hypertension Social Determinants Patient?s care significantly limited by Social Determinants of Health including: Alcoholism and drug addiction in family Critical Care Time Critical Care Time Critical Care Time: Yes Total Critical Care Time: 40 Attestation: I have personally provided 40 minutes of critical care time exclusive of time spent on separately billable procedures. ?Time includes review of lab data, radiology results, discussion with consultants, and monitoring for potential decompensation. ?Interventions were performed as documented above Discharge Plan Discharge Clinical Impression: ST elevation (STEMI) myocardial infarction Patient Disposition: [facility] Transfer Details: Transfer to [facility] construction laborer Prescriptions: No Action (DME) 4x4 sterile gauze 1 sleeve See Rx Instructions .Route .MEDSUPPLY Qty: 1 1RF Rx Instructions: As directed (DME) vinh roll 4 inch See Rx Instructions .Route .MEDSUPPLY Qty: 30 1RF Rx Instructions: As directed (DME) foot brace left See Rx Instructions .Route .MEDSUPPLY Qty: 1 0RF Rx Instructions: As directed clotrimazole 1 % cream 1 appl topical BID 15 Days Qty: 45 3RF alprazolam 0.5 mg tablet 0.5 mg PO DAILY PRN (Reason: anxiety) 1 Days Qty: 1 0RF Rx Instructions: Take 30 minutes before dental procedure. gabapentin 800 mg tablet 800 mg PO .every 6 hours 30 Days Qty: 120 2RF atorvastatin 20 mg tablet 20 mg PO BEDTIME 90 Days Qty: 90 1RF (DME) walker Misc See Rx Instructions .Route Qty: 1 0RF Rx Instructions: As directed (DME) wheelchair See Rx Instructions .Route .MEDSUPPLY Qty: 1 0RF Rx Instructions: As directed ibuprofen 800 mg tablet 800 mg PO Q8H PRN (Reason: pain) Qty: 20 0RF buprenorphine HCl 8 mg tablet, sublingual 8 mg sublingual TID 30 Days Qty: 90 0RF tadalafil 10 mg tablet 10 mg PO DAILY 90 Days Qty: 90 1RF bethanechol chloride 50 mg tablet 50 mg PO TID 90 Days Qty: 270 2RF Print Language: Bahraini
--- NOTE | 2024-07-16 16:02 | PC.NURSE ---
Patient arrived from home driven by after he started having chest pain that progressively got worse. Pain radiated to his back and he started having trouble breathing. Patient brought to ed 3, 18g iv placed in left ac, labs drawn and repeat ekg obtained. provider at bedside reviewed ekg. Patient reports no chest pain at this time or sob. Aware and in agreement with plan to transfer to [facility] laborer [facility], family at bedside
[2024-07-16 16:07] VITALS: BP 116/64; PULSE 123; RESP 18; O2SAT 94
[2024-07-16 16:07] LABS: MANUAL DIFF FLAG NO
[2024-07-16 16:11] LABS: Basophils Percent Auto 0.2 % (0-2); Eosinophils Percent Auto 0.2 % (0-4); Hemoglobin 12.3 g/dl (14.0-18.0); Imm Gran Abs Auto 0.06 X10*3/uL (0.00-0.03); Imm Gran Pct Auto 0.5 % (0.0-0.4); Lymphocytes Absolute Auto 1.3 X10*3/uL (1.2-4.9); Lymphocytes Percent Auto 9.5 % (20-40); Mean Corpuscular HGB Conc 33.2 g/dl (31.0-36.0); Mean Corpuscular Hemoglobin 27.1 pg (27.0-33.0); Mean Corpuscular Volume 81.5 fL (80.0-98.0); Mean Platelet Volume 12.7 fL (9.4-12.4); Monocytes Absolute Auto 0.8 X10*3/uL (0.1-1.2); Monocytes Percent Auto 6.2 % (2-11); Neutrophils Absolute Auto 11.1 x10*3/uL (2.0-8.3); Neutrophils Percent Auto 83.4 % (45-73); Platelet Count 153 X10*3/uL (160-400); Red Blood Count 4.54 X10*6/uL (4.60-5.80); White Blood Count 13.3 X10*3/uL (4.8-10.8)
[2024-07-16 16:16] VITALS: TEMP 39.4
[2024-07-16 16:26] LABS: Anion Gap 11 (12-20); Blood Urea Nitrogen 15 mg/dL (9-16); Calcium 9.5 mg/dL (8.4-10.2); Carbon Dioxide 27 mmol/L (22-29); Chloride 103 mmol/L (96-108); Creatinine Clr Calc Pharmacy 124.7; Estimated Glomerular Filt Rate > 60; Glucose Random 116 mg/dL (60-115); Sodium 137 mmol/L (135-145)
[2024-07-16 16:37] LABS: Troponin-I High Sensitivity < 2.7 ng/L (<3.5-35.0)
[2024-07-16] MEDS: Acetaminophen 325 MG TABLET 650 MG PO (16:42)
--- NOTE | 2024-07-16 16:52 | PC.NURSE ---
Patient found to be febrile , report given to cardiac veterinary laboratory diagnostician .[facility] called back stating patient no longer going to cardiac veterinary laboratory diagnostician, report given to accepting unit . Medicated per mar , report given to ems
[2024-07-16 16:54] VITALS: BP 116/80; PULSE 124; RESP 20; TEMP 39.4; O2SAT 94
[2024-07-16 17:34] LABS: Influenza A PCR NEGATIVE (Negative); Influenza B PCR NEGATIVE (Negative); Resp Syncy Virus RNA Qual PCR NEGATIVE (Negative); SARS COV2 PCR INHOUSE NEGATIVE (Negative)
== END 2024-07-16 16:55 | disposition short-term general hospital (02) ==
PROVIDERS: Emergency Provider Emergency Medicine Emergency Medical Services; PCP Internal Medicine
DX: I21.3 ST elevation (STEMI) myocardial infarction of unspecified site (principal); R50.9 Fever, unspecified; R07.89 Other chest pain; M54.50 Low back pain, unspecified; R06.02 Shortness of breath; Z87.891 Personal history of nicotine dependence; Z03.818 Encounter for observation for suspected exposure to other biological agents ruled out
CPT/HCPCS: 0241U; 36415; 71045; 80048; 84484; 85025; 93005; 96374; 96375; 99285; J1644

== ENCOUNTER → 2024-07-16 15:33 | Outpatient (BNV) | payer MEDICARE, MEDICAID, SELFPAY | PROVIDERS: Emergency Provider Emergency Medicine Emergency Medical Services; PCP Internal Medicine; Visit Provider Internal Medicine Cardiovascular Disease | DX: R94.31 Abnormal electrocardiogram [ECG] [EKG] (principal) | CPT/HCPCS: 93010 ==

== ENCOUNTER → 2024-07-16 16:13 | Outpatient (BNV) | payer MEDICARE, MEDICAID, SELFPAY | PROVIDERS: Emergency Provider Emergency Medicine Emergency Medical Services; PCP Internal Medicine; Visit Provider Radiology Diagnostic Radiology | DX: R07.9 Chest pain, unspecified (principal) | CPT/HCPCS: 71045 ==

== ENCOUNTER 2024-07-27 16:50 | Outpatient (AMB) | payer MEDICARE, MEDICAID, SELFPAY ==
--- NOTE | 2024-07-27 16:56 | MHC.PC.OV ---
Vital Signs 07/27/24 16:58 Height 6 ft Weight 244 lb BMI 33.1 BP 138/90 H Blood Pressure Location Lt brachial Position Sitting Intake Visit Reasons: Hospital discharge follow-up Outside Medical Sales Representative Required: Yes Outside Medical Sales Representative Language: Barrel Tester And Drainer Name: Gertrudis Culver MD Information Interpreted: non-clinical & clinical Accompanied by: Spouse Allergies penicillin V Allergy (Intermediate, Verified 07/27/24 17:15) hives naloxone Adverse Reaction (Intermediate, Uncoded 07/27/24 17:15) excessive night sweats Medication List - Last Reconciled 07/27/24 by Gertrudis Culver MD [4x4 sterile gauze As directed] alprazolam 0.5 mg PO DAILY PRN 1 day atorvastatin 20 mg PO BEDTIME 90 days bethanechol chloride 50 mg PO TID 90 days buprenorphine HCl 8 mg sublingual TID 30 days clotrimazole 1% 1 appl topical BID 15 days [foot brace left As directed] gabapentin 800 mg PO .every 6 hours 30 days ibuprofen 800 mg PO Q8H PRN [vinh roll As directed] losartan 25 mg PO DAILY tadalafil 10 mg PO DAILY 90 days walker As directed [wheelchair As directed] Tobacco use date assessed: 07/27/24 Dental Screening Dental Screen Date: 07/27/24 Did you have a dental visit in the last 12 months?: No Did you have a dental problem in the last 6 months where you did not have access to dental care?: No Was dental information given to patient?: Patient has dentist HPI HPI Comments History of Present Illness Details The patient is a 49-year-old male presenting with follow-up concerns after a recent hospitalization for pneumonia with discharge date 07/18/2023. The episode began with chest pain and was accompanied by fever, which was later diagnosed as pneumonia affecting the lower left lung. During the hospitalization, the patient underwent an EKG, which revealed changes suggestive of Brugada syndrome; however, these were attributed to fever caused by infection rather than true Brugada syndrome. He received Ceftriaxone during his stay, followed by completion of outpatient antibiotic therapy with cefpodoxime and doxycycline. The patient had no pulmonary embolism, as confirmed by a CT scan. Past medical history includes hypertension managed with Losartan, which is to be increased due to suboptimal control of blood pressure. Blood pressure will be recheck by nurse navigator in 3 weeks. He also has dyslipidemia on statins and reports no side effect. He has severe opioid dependence in agonist therapy well controlled by Suboxone clinic. Additionally, he has a history of leg infection leading to swelling, which was treated and resolved. There are no current symptoms of chest pain or fever. Also has mild major depression follow by Psychiatry. [facility] Medical History (Updated 07/27/24 @ 20:17 by Gertrudis Culver MD) Family history of prostate cancer Mild major depression Chronic foot ulcer Helicobacter pylori (H. pylori) Lumbar pain Abnormal barium swallow Chest pain Lymphadenopathy Headache Dysphagia Wound of left foot Dyslipidemia Urinary incontinence Insomnia Back pain Neuropathy Opioid use disorder Surgical History Hx of colonoscopy History of esophagogastroduodenoscopy (EGD) History of cystoscopy History of carpal tunnel surgery of left wrist History of prostate surgery Hx of prostate biopsy Hx of hernia repair Family History Father Prostate cancer Mother Diabetes mellitus Essential hypertension Pure hypercholesterolemia Social History Household Members: Spouse Housing: House Do you presently have visiting nurse or other home services: No Alcohol intake: never Patient Tobacco Use Status: Former Tobacco user Cigarette Packs Per Day: 1 e-Cigarette/Vaping Use: Former Use Second Hand Smoke Exposure: No Substance Use Type: Marijuana service: No Current occupational status: disabled Cognitive needs: Yes (cane) Hearing needs: No Vision needs: No Questionnaire PHQ-9 Over the last 2 weeks, how often have you been bothered by any of the following problems? 1. Little interest or pleasure in doing things: not at all 2. Feeling down, depressed, or hopeless: several days 3. Trouble falling or staying asleep, or sleeping too much: several days 4. Feeling tired or having little energy: several days 5. Poor appetite or overeating: not at all 6. Feeling bad about yourself - or that you are a failure or have let yourself or your family down: not at all 7. Trouble concentrating on things, such as reading the newspaper or watching television: not at all 8. Moving or speaking so slowly that other people could have noticed. Or the opposite - being so fidgety or restless that you have been moving around a lot more than usual: not at all 9. Thoughts that you would be better off or of hurting yourself in some way: not at all Total score: 3 Depression Screening Interpretation: Positive Depression Screening Follow-up: Existing condition, In treatment, Community Mental Health Worker F/U and Follow-up Visit Requested Depression Screening Done: Yes 04274 - PHQ-9 Billing: Yes Source: Developed by Drs. Jorge Luis Parada, Vanna Williamson, Alex Javier and colleagues, with an educational christian from [employer]. Thrive Questionnaire Date Thrive assessed: 07/27/24 I am a: Patient What is your living situation today?: I have a steady place to live Within the past 12 months, did the food you bought not last and you didn't have the money to get more?: Never true Within the past 12 months, did you worry whether your food would run out before you got money to buy more?: Never true Do you have trouble paying for medicines?: No Do you have trouble getting transportation to medical appointments?: No Do you have trouble paying your heating and electricity bill?: No Do you have trouble taking care of your child, family member or friend?: No Do you have trouble with day-to-day activities such as bathing, preparing meals, shopping, managing finances, etc.?: No Are you currently unemployed and looking for a job?: No Are you interested in more education?: No Please select the resources that you would like help with: None Currently or been in a relationship where the following occur: No concerns reported THRIVE Score: 0 AUDIT C Alcohol Use Questionnaire (AUDIT-C) 1. How often do you have a drink containing alcohol?: Never Total Score: 0 Score Reviewed/Action Taken: No NALLELY-7 AMB Questionnaire NALLELY-7 Date NALLELY - 7 assessed: 07/27/24 Feeling nervous, anxious, or on edge: 1 = Several days Not being able to stop or control worryin = Several days Worrying too much about different things: 1 = Several days Trouble relaxin = Several days Being so restless that it is hard to sit still: 0 = Not at all Becoming easily annoyed or irritable: 1 = Several days Feeling afraid as if something awful might happen: 0 = Not at all Total NALLELY-7 score (0-4 normal; 5-9 mild; 10-14 moderate; 15-21 severe): 5 Source: Developed by Drs. Jorge Luis Parada, Vanna Williamson, Alex Javier and colleagues, with an educational christian from [employer]. NALLELY-7 Assessment Billing NALLELY-7 Assessment Tool: NALLELY-7 Assessment 34323 Review of Systems Const All systems reviewed & are unremarkable except as noted in HPI and below Card Denies chest pain at rest, Denies chest pain with activity, Denies edema, Denies irregular heart rhythm, Denies claudication, Denies dyspnea, Denies dyspnea on exertion, Denies orthopnea, Denies paroxysmal nocturnal dyspnea and Denies slow heart rate Resp Denies cough, Denies dyspnea and Denies dyspnea on exertion GI Denies abdominal pain, Denies change in bowel habits, Denies excessive flatus, Denies nausea and Denies vomiting Physical exam (Primary Care) Vital Signs: Last Vital Signs BP 138/90 H 07/27/24 16:58 BMI result Body Mass Index 33.1 BMI Assessment/Plan discussion: High BMI High, discussed plan: lifestyle, weight reduction, dietary and physical activity Tobacco/Smoking Status: Tobacco use Status Tobacco use date assessed 07/27/24 07/27/24 17:00 Patient Tobacco Use Status Former Tobacco user 07/27/24 17:00 e-Cigarette/Vaping Use Former Use 07/27/24 17:00 PHQ-9: PHQ-9 Score PHQ-9: Total score 3 07/27/24 17:19 Depression Screening Interpretation: Positive Depression Screening Follow-up: Existing condition, In treatment, Community Mental Health Worker F/U and Follow-up Visit Requested Thrive Assessment: Date of Thrive Assessment Date Thrive assessed 07/27/24 07/27/24 17:00 Currently or been in a relationship where the following occur: No concerns reported Resp Effort & Inspection: normal respiratory effort Auscultation: clear to auscultation bilaterally Cardio Jugular venous distension: no JVD Rate: regular rate Rhythm: regular rhythm Heart sounds: S1 normal heart sound present, S2 normal heart sound present and Murmur heart sound present Extrem General: Yes full ROM Psych Appearance: grossly normal Coding Level of Care Code Est Pt Level 4 (28999) Complex EM visit Add On G2211 Diagnoses Hospital discharge follow-up Z09 Mild major depression F32.0 Pneumonia J18.9 Brugada pattern on electrocardiogram I49.8 Murmur R01.1 Severe opioid dependence in sustained remission on maintenance therapy F11.21 Essential hypertension I10 Dyslipidemia E78.5 Additional Codes NALLELY-7 Assessment Billing - NALLELY-7 Assessment Tool: NALLELY-7 Assessment 59736 ([id number]) PHQ-9 - 25370 - PHQ-9 Billing: Yes ([id number]) Time Spent (min) 28 Assessment & Plan Assessment & Plan (1) Hospital discharge follow-up: Code(s): Z09 - Encounter for follow-up examination after completed treatment for conditions other than malignant neoplasm Category: Medical (2) Mild major depression: Code(s): F32.0 - Major depressive disorder, single episode, mild Category: Medical (3) Pneumonia: Code(s): J18.9 - Pneumonia, unspecified organism Category: Medical (4) Brugada pattern on electrocardiogram: Code(s): I49.8 - Other specified cardiac arrhythmias Category: Medical (5) Murmur: Code(s): R01.1 - Cardiac murmur, unspecified Category: Medical (6) Severe opioid dependence in sustained remission on maintenance therapy: Comment: He has been doing better on tablets. He is happy to be off the shot. He is continuing counseling. Code(s): F11.21 - Opioid dependence, in remission Category: Medical (7) Essential hypertension: Code(s): I10 - Essential (primary) hypertension Category: Medical (8) Dyslipidemia: Code(s): E78.5 - Hyperlipidemia, unspecified Category: Medical Plan - Continue monitoring for structural heart disease. - Hypertension management with an increase of Losartan from 25 mg to 50 mg. - Address Brugada pattern with focus on infection control to prevent recurrence. - Complete current antibiotic therapy for pneumonia as prescribed. - Ensure follow-up appointment in 3 weeks for blood pressure evaluation. Patient was informed and verbally consented to the use of an ambient scribe for clinic note documentation during this visit. I discussed the patient's recent hospitalization where he was treated for pneumonia with intravenous antibiotics, later followed by oral therapy. We covered the findings that indicated a Brugada pattern on the EKG, which was recognized as related to fever and infection, not indicative of true Brugada syndrome. The plan to increase Losartan for better blood pressure management was explained, with the need for a follow-up to evaluate the efficacy. I informed the patient about monitoring his condition and seeking medical attention if symptoms like chest pain or fever recur. The importance of completing the antibiotic course was reiterated. Orders: Orders XR chest 2V Today J18.9 - Pneumonia, unspecified organism ECG 12 lead EKG Today I49.8 - Other specified cardiac arrhythmias CA echo transthoracic complete Today R01.1 - Cardiac murmur, unspecified Patient Instructions: - Take all prescribed medications as directed. - Complete the full course of antibiotics. - Monitor for symptoms such as chest pain or fever and seek care if they develop. - Attend follow-up appointment in 3 weeks to reassess blood pressure and response to raised Losartan dose.
[2024-07-27 16:58] VITALS: BP 138/90; BMI 33.1
== END 2024-07-27 17:32 | disposition home or self-care (01) ==
PROVIDERS: PCP Internal Medicine; Visit Provider Internal Medicine
DX: J18.9 Pneumonia, unspecified organism (principal); F32.0 Major depressive disorder, single episode, mild; F11.21 Opioid dependence, in remission; Z09 Encounter for follow-up examination after completed treatment for conditions other than malignant neoplasm; I49.8 Other specified cardiac arrhythmias; R01.1 Cardiac murmur, unspecified; I10 Essential (primary) hypertension; E78.5 Hyperlipidemia, unspecified

== ENCOUNTER → 2024-07-27 16:50 | Outpatient (BNVA) | payer MEDICARE, MEDICAID, SELFPAY | PROVIDERS: PCP Internal Medicine; Visit Provider Internal Medicine | DX: Z09 Encounter for follow-up examination after completed treatment for conditions other than malignant neoplasm (principal); F32.0 Major depressive disorder, single episode, mild; J18.9 Pneumonia, unspecified organism; R01.1 Cardiac murmur, unspecified; I49.8 Other specified cardiac arrhythmias; F11.21 Opioid dependence, in remission; E78.5 Hyperlipidemia, unspecified; I10 Essential (primary) hypertension | CPT/HCPCS: 96127; 99212 ==

== ENCOUNTER → 2024-08-04 14:58 | Outpatient (REF) | payer MEDICARE, MEDICAID, SELFPAY ==
--- NOTE | 2024-08-04 15:01 | ECG_ITS ---
Test Reason : CARDIAC RHYTHM Blood Pressure : */* mmHG Vent. Rate : 76 BPM Atrial Rate : 76 BPM P-R Int : 192 ms QRS Dur : 108 ms QT Int : 378 ms P-R-T Axes : 48 38 10 degrees QTcB Int : 425 ms Normal sinus rhythm Normal ECG When compared with ECG of 16-Jul-2024 15:50, Vent. rate has decreased by [address] elevation improved in anterior leads Referred By: Gertrudis Culver Electronically Signed By: DAMIAN CARDENAS
--- NOTE | 2024-08-04 15:01 | CA_ITS ---
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 The visually estimated ejection fraction is between 55-60%. - No obvious valvular pathology seen on this study. Findings Procedure Information Contrast agent, definity, is being given per protocol without apparent complications. Left Ventricle Normal left ventricular cavity size. There is normal left ventricular wall thickness. The left ventricular systolic function is normal. The visually estimated ejection fraction is between 55-60%. There is no evidence of regional wall motion abnormalities. Diastolic function is normal for age. Right Ventricle Mildly increased right ventricular cavity size. There is normal right ventricular systolic function. Atria The left atrium is normal in size. The right atrium is mildly dilated. Aortic Valve There is a normal trileaflet aortic valve. There is no aortic valve stenosis. There is no aortic valve regurgitation. Mitral Valve The mitral valve appears normal. There is trace mitral valve regurgitation. There is no mitral valve stenosis. Pulmonic Valve The pulmonic valve is likely normal. Tricuspid Valve There is trace tricuspid valve regurgitation. There is no evidence of pulmonary hypertension. Great Vessels The asc aorta is normal in size. Venous The inferior vena cava is normal in size and collapses greater than 50% with inspiration. Pericardium/Pleural There is no evidence of pericardial effusion. Prior Study Comparison No significant change compared to prior study dated: 03/13/2016. Recommendations, Care & Conclusions No obvious valvular pathology seen on this study. Measurements 2D Linear Measurements IVSd: 0.79 0.6-0.9/0.6-1.0 cm LVIDd: 5.54 3.9-5.3/4.2-5.9 cm LVIDd Index: 2.37 2.4-3.2/2.2-3.1 cm/m2 LVIDs: 3.60 2.0-3.6 cm LVPWd: 0.77 0.7-1.1 cm LA Diam: 3.60 2.7-3.8/3.0-4.0 cm LAIDs Index: 1.54 1.5-2.3 cm/m2 LV Mass: 194.77 67-162/88-224 g LV Mass Index: 83.23 43-95/49-115 g/m2 LVOT Diam: 2.20 3.0+(-)1.3 cm 2D Systolic Function EF 4C: 60.40 >55% Mitral Valve MV Pk E: 0.70 MV PK A: 0.41 MV Decel Time: 250.00 E/A: 1.70 E'Lateral: 15.60 E'Medial: 7.94 E/E' Med: 8.90 E/E' Lat: 4.50 PHT: 73.00 MVA PHT: 3.01 Decel [place]: 2.81 Aortic Valve AoV Pk Tang: 1.62 AoV Mn Tang: 1.15 AoV VTI: 0.30 AoV Pk Grad: 10.00 Aov Mn Grad: 6.00 JAYNE Cont.VTI: 2.52 LVOT LVOT Pk Tang: 1.12 LVOT Mn Tang: 0.66 LVOT VTI: 0.20 LVOT Pk Grad: 5.00 LVOT Mn Grad: 2.00 LVOT Diam: 2.20 LVOT Area: 3.80 Diastolic Function MV Pk E: 0.70 MV Pk A: 0.41 E/A: 1.70 E'Medial: 7.94 E/E' Med: 8.90 E' Laterial: 15.60 E/E' Lat: 4.50 Right Ventricle TAPSE (mm): 34.10 TVS' Tang: 15.60 Tricuspid Valve RA Press: 3.00 Great Vessels Aorta Sinus of Valsalva: 3.46 2.0-3.5 cm Ao Asc: 3.30 2.1-3.4 cm Updated in Other Vendor System with Status of Final Prosper Sorto MD electronically signed on 08/05/2024 1:19:32 PM with status of Final
== END ==
LOC: HO.CARD 14:58
PROVIDERS: PCP Internal Medicine; Visit Provider Internal Medicine
DX: R01.1 Cardiac murmur, unspecified (principal); I49.8 Other specified cardiac arrhythmias
CPT/HCPCS: 93005; 93306; Q9957

== ENCOUNTER → 2024-08-04 15:01 | Outpatient (BNV) | payer MEDICARE, MEDICAID, SELFPAY | PROVIDERS: PCP Internal Medicine; Visit Provider Internal Medicine | DX: R01.1 Cardiac murmur, unspecified (principal) | CPT/HCPCS: 93306 ==

== ENCOUNTER 2025-01-03 15:07 | Outpatient (AMB) | payer MEDICARE, MEDICAID, SELFPAY ==
--- NOTE | 2025-01-03 15:10 | A.OFFPC_ITS ---
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 Accompanied by: Spouse Allergies penicillin V Allergy (Intermediate, Verified 01/03/25 15:23) hives naloxone Adverse Reaction (Intermediate, Uncoded 01/03/25 15:23) excessive night sweats Medication List - Last Reconciled 01/03/25 by Gertrudis Culver MD [4x4 sterile gauze As directed] alprazolam 0.5 mg PO DAILY PRN 1 day atorvastatin 20 mg PO BEDTIME 90 days bethanechol chloride 50 mg PO TID 90 days buprenorphine HCl 8 mg sublingual TID 30 days clotrimazole 1% 1 appl topical BID 15 days [foot brace left As directed] gabapentin 800 mg PO .every 6 hours 30 days ibuprofen 800 mg PO Q8H PRN [vinh roll As directed] losartan 25 mg PO DAILY 90 days omeprazole 20 mg PO DAILY 90 days tadalafil 10 mg PO DAILY 90 days walker As directed [wheelchair As directed] Tobacco use date assessed: 07/27/24 Dental Screening Dental Screen Date: 07/27/24 HPI HPI Comments History of Present Illness Details The patient is a 49-year-old male presenting for follow-up of hypertension and management of opioid use disorder. Hypertension has been well controlled with current medication regimen, including losartan. He is compliant with his medication and reports no significant side effects. The patient is also being treated for opioid use disorder and is currently [facility]. He is compliant with his treatment plan. He has a history of mild major depressive disorder, with a PHQ-9 score of 8 today, indicating mild depression. The patient is accompanied by his during the visit. The patient reports neuropathy and requires a brace for his left leg due to foot drop. He is currently taking gabapentin for neuropathy management. He has mild anemia, which is being monitored. The patient has impaired glucose tolerance, which will be reassessed in future visits. He has elevated cholesterol levels and is compliant with statin therapy. The patient has gained weight and is classified as having class 1 obesity with a BMI of 33.6. He has been advised to follow a diet and exercise regimen as tolerated. [facility] Medical History Family history of prostate cancer Mild major depression Chronic foot ulcer Helicobacter pylori (H. pylori) Lumbar pain Abnormal barium swallow Chest pain Lymphadenopathy Headache Dysphagia Wound of left foot Dyslipidemia Urinary incontinence Insomnia Back pain Neuropathy Opioid use disorder Surgical History Hx of colonoscopy History of esophagogastroduodenoscopy (EGD) History of cystoscopy History of carpal tunnel surgery of left wrist History of prostate surgery Hx of prostate biopsy Hx of hernia repair Family History Father Prostate cancer Mother Diabetes mellitus Essential hypertension Pure hypercholesterolemia Social History Household Members: Spouse Housing: House Do you presently have visiting nurse or other home services: No Alcohol intake: never Patient Tobacco Use Status: Former Tobacco user Cigarette Packs Per Day: 1 e-Cigarette/Vaping Use: Former Use Second Hand Smoke Exposure: No Substance Use Type: Marijuana service: No Current occupational status: disabled Cognitive needs: Yes (cane) Hearing needs: No Vision needs: No Questionnaire PHQ-9 Over the last 2 weeks, how often have you been bothered by any of the following problems? 1. Little interest or pleasure in doing things: several days 2. Feeling down, depressed, or hopeless: several days 3. Trouble falling or staying asleep, or sleeping too much: more than half the days 4. Feeling tired or having little energy: more than half the days 5. Poor appetite or overeating: not at all 6. Feeling bad about yourself - or that you are a failure or have let yourself or your family down: not at all 7. Trouble concentrating on things, such as reading the newspaper or watching television: more than half the days 8. Moving or speaking so slowly that other people could have noticed. Or the opp osite - being so fidgety or restless that you have been moving around a lot more than usual: not at all 9. Thoughts that you would be better off or of hurting yourself in some way: not at all Total score: 8 Depression Screening Interpretation: Positive Depression Screening Follow-up: Existing condition, In treatment and Follow-up Visit Requested Depression Screening Done: Yes 62834 - PHQ-9 Billing: Yes Source: Developed by Drs. Jorge Luis Parada, Alex Piper and colleagues, with an educational christian from [employer]. Thrive Questionnaire Date Thrive assessed: 07/27/24 I am a: Patient What is your living situation today?: I have a steady place to live Within the past 12 months, did the food you bought not last and you didn't have the money to get more?: Never true Within the past 12 months, did you worry whether your food would run out before you got money to buy more?: Never true Do you have trouble paying for medicines?: No Do you have trouble getting transportation to medical appointments?: No Do you have trouble paying your heating and electricity bill?: No Do you have trouble taking care of your child, family member or friend?: No Do you have trouble with day-to-day activities such as bathing, preparing meals, shopping, managing finances, etc.?: Yes Are you currently unemployed and looking for a job?: No Are you interested in more education?: No Please select the resources that you would like help with: None Currently or been in a relationship where the following occur: I choose not to answer THRIVE Score: 0 AUDIT C Alcohol Use Questionnaire (AUDIT-C) 1. How often do you have a drink containing alcohol?: Never Total Score: 0 NALLELY-7 AMB Questionnaire NALLELY-7 Date NALLELY - 7 assessed: 07/27/24 Feeling nervous, anxious, or on edge: 1 = Several days Not being able to stop or control worryin = Not at all Worrying too much about different things: 0 = Not at all Trouble relaxin = Several days Being so restless that it is hard to sit still: 0 = Not at all Becoming easily annoyed or irritable: 2 = More than half the days Feeling afraid as if something awful might happen: 0 = Not at all Total NALLELY-7 score (0-4 normal; 5-9 mild; 10-14 moderate; 15-21 severe): 4 Source: Developed by Drs. Jorge Luis Parada, Alex Piper and colleagues, with an educational christian from [employer]. NALLELY-7 Assessment Billing NALLELY-7 Assessment Tool: NALLELY-7 Assessment 99195 Review of Systems Const All systems reviewed & are unremarkable except as noted in HPI and below Card Denies chest pain at rest, Denies chest pain with activity, Denies edema, Denies irregular heart rhythm, Denies claudication, Denies dyspnea, Denies dyspnea on exertion, Denies orthopnea, Denies paroxysmal nocturnal dyspnea and Denies slow heart rate Resp Denies cough, Denies dyspnea and Denies dyspnea on exertion GI Denies abdominal pain, Denies change in bowel habits, Denies excessive flatus, Denies nausea and Denies vomiting Denies urinary hesitancy, Denies urinary incontinence and Denies urinary urgency Neuro Denies lack of coordination Physical exam (Primary Care) Vital Signs: Last Vital Signs BP 126/80 01/03/25 15:11 BMI result Body Mass Index 33.6 BMI Assessment/Plan discussion: High BMI High, discussed plan: lifestyle, weight reduction, dietary and physical activity Tobacco/Smoking Status: Tobacco use Status Tobacco use date assessed 07/27/24 01/03/25 15:16 Patient Tobacco Use Status Former Tobacco user 01/03/25 15:16 e-Cigarette/Vaping Use Former Use 01/03/25 15:16 PHQ-9: PHQ-9 Score PHQ-9: Total score 8 01/03/25 15:32 Depression Screening Interpretation: Positive Depression Screening Follow-up: Existing condition, In treatment and Follow-up Visit Requested Thrive Assessment: Date of Thrive Assessment Date Thrive assessed 07/27/24 01/03/25 15:16 Currently or been in a relationship where the following occur: I choose not to answer Resp Effort & Inspection: normal respiratory effort Auscultation: clear to auscultation bilaterally Cardio Jugular venous distension: no JVD Rate: regular rate Rhythm: regular rhythm Heart sounds: S1 normal heart sound present and S2 normal heart sound present Extrem General: Yes full ROM Coding Level of Care Code Est Pt Level 4 (14962) Complex EM visit Add On G2211 Diagnoses Mild major depression F32.0 Severe opioid dependence in sustained remission on maintenance therapy F11.21 Essential hypertension I10 Dyslipidemia E78.5 Neuropathy G62.9 Foot drop, left M21.372 Additional Codes NALLELY-7 Assessment Billing - NALLELY-7 Assessment Tool: NALLELY-7 Assessment 48035 ([id number]) PHQ-9 - 79579 - PHQ-9 Billing: Yes ([id number]) Time Spent (min) 24 Assessment & Plan Assessment & Plan (1) Mild major depression: Code(s): F32.0 - Major depressive disorder, single episode, mild Category: Medical (2) Severe opioid dependence in sustained remission on maintenance therapy: Comment: He has been doing better on tablets. He is happy to be off the shot. He is continuing counseling. Code(s): F11.21 - Opioid dependence, in remission Category: Medical (3) Essential hypertension: Code(s): I10 - Essential (primary) hypertension Category: Medical (4) Dyslipidemia: Code(s): E78.5 - Hyperlipidemia, unspecified Category: Medical (5) Neuropathy: Code(s): G62.9 - Polyneuropathy, unspecified Category: Medical (6) Foot drop, left: Code(s): M21.372 - Foot drop, left foot Category: Medical Plan The patient's hypertension is well controlled with losartan, and he should continue with his current medication regimen. His opioid use disorder is being managed through the [facility], and he should maintain compliance with his treatment plan. For his mild major depressive disorder, monitoring of symptoms and PHQ-9 scores will continue, with adjustments to treatment as necessary. Neuropathy management includes the use of gabapentin, and the patient should continue using a brace for his left leg due to foot drop. Anemia will be monitored, and further evaluation will be conducted if necessary. Impaired glucose tolerance will be reassessed in future visits to determine any necessary interventions. The patient should continue statin therapy for hyperlipidemia and adhere to dietary and exercise recommendations to address obesity. Patient was informed and verbally consented to the use of an ambient scribe for clinic note documentation during this visit. Orders: Orders Lipid Panel Today E78.5 - Hyperlipidemia, unspecified IRON PROFILE Today D64.9 - Anemia, unspecified Complete Blood Count Auto Diff Today D64.9 - Anemia, unspecified Comprehensive [place]. Panel Fast Today I10 - Essential (primary) hypertension Medications: Refilled [foot brace left] As directed 1 ea 0RF G62.9 - Polyneuropathy, unspecified, M21.372 - Foot drop, left foot
[2025-01-03 15:11] VITALS: BP 126/80; BMI 33.6
== END 2025-01-03 15:37 | disposition home or self-care (01) ==
LOC: HO.HMCH 15:08
PROVIDERS: PCP Internal Medicine; Visit Provider Internal Medicine
DX: F32.0 Major depressive disorder, single episode, mild (principal); F11.21 Opioid dependence, in remission; I10 Essential (primary) hypertension; E78.5 Hyperlipidemia, unspecified; G62.9 Polyneuropathy, unspecified; M21.372 Foot drop, left foot

== ENCOUNTER → 2025-01-03 15:07 | Outpatient (BNVA) | payer MEDICARE, MEDICAID, SELFPAY | PROVIDERS: PCP Internal Medicine; Visit Provider Internal Medicine | DX: F32.0 Major depressive disorder, single episode, mild (principal); F11.21 Opioid dependence, in remission; E78.5 Hyperlipidemia, unspecified; I10 Essential (primary) hypertension; G62.9 Polyneuropathy, unspecified; M21.372 Foot drop, left foot | CPT/HCPCS: 96127; 99212 ==

== ENCOUNTER 2025-01-10 13:20 | Outpatient (AMB) | payer MEDICARE, MEDICAID, SELFPAY ==
--- NOTE | 2025-01-10 13:39 | A.OFFPC_ITS ---
Vital Signs 01/10/25 13:41 Height 6 ft Weight 247 lb 4 oz BMI 33.5 BP 158/74 H Blood Pressure Location Lt brachial Position Sitting Pulse 91 Temp 97.3 F Temp Source Temporal Artery Scan Pulse Oximetry (%) 96 Oxygen Delivery Method Room Air Intake Visit Reasons: blood in urine Electric Stove Mechanic Required: No Accompanied by: Self / Same As Patient Allergies penicillin V Allergy (Intermediate, Verified 01/10/25 13:41) hives naloxone Adverse Reaction (Intermediate, Uncoded 01/10/25 13:41) excessive night sweats Medication List - Last Reconciled 01/10/25 by Diana Smith PA-C [4x4 sterile gauze As directed] alprazolam 0.5 mg PO DAILY PRN 1 day atorvastatin 20 mg PO BEDTIME 90 days bethanechol chloride 50 mg PO TID 90 days buprenorphine HCl 8 mg sublingual TID 30 days clotrimazole 1% 1 appl topical BID 15 days [foot brace left As directed] gabapentin 800 mg PO .every 6 hours 30 days ibuprofen 800 mg PO Q8H PRN [vinh roll As directed] losartan 25 mg PO DAILY 90 days omeprazole 20 mg PO DAILY 90 days tadalafil 10 mg PO DAILY 90 days walker As directed [wheelchair As directed] Tobacco use date assessed: 01/10/25 Dental Screening Dental Screen Date: 01/10/25 Did you have a dental visit in the last 12 months?: Yes Did you have a dental problem in the last 6 months where you did not have access to dental care?: No Was dental information given to patient?: Patient has dentist HPI blood in urine HPI Details 49-year-old male with past medical histo ry of neuropathy, urinary incontinence, dyslipidemia, depression, hypertension last seen 01/[address] Durham coming in for acute problem. Presenting with testicular pain and hematuria. Testicular pain began two days ago while getting into a car, initially thought to be due to pinching. Pain was primarily on the right side, described as tension, and has significantly improved however mild pain does remain. Hematuria occurred at the beginning of u rination two days ago, with no recurrence since. No history of recent physical exertion or trauma, and no lumps or bumps noted. No recent diarrhea, and bowel movements have been normal. No known history of kidney stones, but patient has a history of high blood pressure managed with losartan. [facility] Medical History Family history of prostate cancer Mild major depression Chronic foot ulcer Helicobacter pylori (H. pylori) Lumbar pain Abnormal barium swallow Chest pain Lymphadenopathy Headache Dysphagia Wound of left foot Dyslipidemia Urinary incontinence Insomnia Back pain Neuropathy Opioid use disorder Surgical History Hx of colonoscopy History of esophagogastroduodenoscopy (EGD) History of cystoscopy History of carpal tunnel surgery of left wrist History of prostate surgery Hx of prostate biopsy Hx of hernia repair Family History Father Prostate cancer Mother Diabetes mellitus Essential hypertension Pure hypercholesterolemia Social History Household Members: Spouse Housing: House Do you presently have visiting nurse or other home services: No Alcohol intake: never Patient Tobacco Use Status: Former Tobacco user Cigarette Packs Per Day: 1 e-Cigarette/Vaping Use: Former Use Second Hand Smoke Exposure: No Substance Use Type: Marijuana service: No Current occupational status: disabled Cognitive needs: Yes (cane) Hearing needs: No Vision needs: No Questionnaire Thrive Questionnaire Date Thrive assessed: 01/10/25 I am a: Patient What is your living situation today?: I have a steady place to live Within the past 12 months, did the food you bought not last and you didn't have the money to get more?: Never true Within the past 12 months, did you worry whether your food would run out before you got money to buy more?: Never true Do you have trouble paying for medicines?: No Do you have trouble getting transportation to medical appointments?: No Do you have trouble paying your heating and electricity bill?: No Do you have trouble taking care of your child, family member or friend?: No Do you have trouble with day-to-day activities such as bathing, preparing meals, shopping, managing finances, etc.?: Yes Are you currently unemployed and looking for a job?: No Are you interested in more education?: No Please select the resources that you would like help with: None Currently or been in a relationship where the following occur: I choose not to answer THRIVE Score: 0 NALLELY-7 AMB Questionnaire NALLELY-7 Date NALLELY - 7 assessed: 01/10/25 Source: Developed by Drs. Jorge Luis Parada, Vanna Williamson, Alex Javier and colleagues, with an educational christian from [employer]. Review of Systems Const Denies body aches, Denies chills, Denies fever(s), Denies headache(s) and Denies poor appetite Eyes Reports no additional complaints ENT Denies dizziness and Denies headache(s) Card Denies chest pain, Denies lightheadedness and Denies dyspnea Resp Denies dyspnea GI Denies abdominal pain, Denies diarrhea, Denies nausea and Denies vomiting Reports as per HPI Musc Reports no additional complaints and Denies abnormal gait Skin/Breast Reports system reviewed and no additional complaints, except as documented Neuro Denies abnormal gait, Denies dizziness and Denies headache(s) Psych Reports no additional complaints Physical exam (Primary Care) Vital Signs: Last Vital Signs Temp 97.3 F 01/10/25 13:41 Pulse 91 01/10/25 13:41 BP 158/74 H 01/10/25 13:41 Pulse Ox 96 01/10/25 13:41 Oxygen Delivery Method Room Air 01/10/25 13:41 BMI result Body Mass Index 33.5 Tobacco/Smoking Status: Tobacco use Status Tobacco use date assessed 01/10/25 01/10/25 13:46 Patient Tobacco Use Status Former Tobacco user 01/10/25 13:40 e-Cigarette/Vaping Use Former Use 01/10/25 13:40 Thrive Assessment: Date of Thrive Assessment Date Thrive assessed 01/10/25 01/10/25 13:40 Currently or been in a relationship where the following occur: I choose not to answer Const General: cooperative, healthy appearing, comfortable and no acute distress Orientation/consciousness: patient oriented x3 HENMT Head: Yes normocephalic Ears: hearing grossly normal bilaterally General nose exam: Normal external nose present Eyes General: appearance normal, both eyes and all related structures Conjunctivae: conjunctivae normal Neck Neck: Yes full ROM and Yes no lymphadenopathy Resp Effort & Inspection: normal respiratory effort Auscultation: clear to auscultation bilaterally, no crackles, no rales, no rhonchi and no wheezes Cardio Rate: regular rate Rhythm: regular rhythm Male General Exam: No Genital lesions present Penis: normal penis, no ecchymosis, no swelling and No Genital lesions present Meatus: no meatla discharge Scrotum: scrotum normal, no ecchymosis, not edematous, not erythematous and no masses Testes: Testes normal, no epidiymal tenderness, no testicular mass and no testicular tenderness Skin General skin exam: no rashes or lesions noted Neuro General: patient oriented x3 Gait exam (Neuro): Normal gait present Extrem General: Yes normal to inspection, Yes full ROM and No edema Psych Affect: normal affect Attitude: cooperative Insight: Good insight present (Psych) Judgement: Good judgement present (Psych) Results AMB Urinalysis Dipstick UR Leukocytes Moderate Last Edit by Tyler Bauman MA on 01/10/25 14:24 500 Tyler Bauman 01/10/25 14:24 UR Nitrite Positive Last Edit by Tyler Bauman MA on 01/10/25 14:24 UR Urobilinogen Normal Last Edit by Tyler Bauman MA on 01/10/25 14:24 UR Protein Trace Last Edit by Tyler Bauman MA on 01/10/25 14:24 15 Tyler Bauman 01/10/25 14:24 UR Ph 6.0 Last Edit by Tyler Bauman MA on 01/10/25 14:24 UR Blood Moderate Last Edit by Tyler Bauman MA on 01/10/25 14:24 200 Tyler Bauman 01/10/25 14:24 UR Specific [place] 1.025 Last Edit by Tyler Bauman MA on 01/10/25 14:2 4 UR Ketone Negative Last Edit by Tyler Bauman MA on 01/10/25 14:24 UR Bilirubin Negative Last Edit by Tyler Bauman MA on 01/10/25 14:24 UR Glucose Negative Last Edit by Tyler Bauman MA on 01/10/25 14:24 Results Reviewed Results Reviewed: Laboratory Last Values Urine pH (Clinic) 6.0 01/10/25 13:59 Specific [place] (Clinic) 1.025 01/10/25 13:59 Ur Protein (Clinic) Trace 01/10/25 13:59 Ur Ketones (Clinic) Negative 01/10/25 13:59 Urine Blood (Clinic) Moderate 01/10/25 13:59 Urine Nitrite Positive 01/10/25 13:59 Urine Bilirubin (Clinic) Negative 01/10/25 13:59 Urobilinogen (Clinic) Normal 01/10/25 13:59 Leukocyte Esterase (Clinic) Moderate 01/10/25 13:59 Urine Glucose (Clinic) Negative 01/10/25 13:59 Coding Level of Care Code Est Pt Level 4 (30075) Diagnoses Essential hypertension I10 Cystitis N30.90 Pain in right testicle N50.811 Laterality: right Hematuria R31.9 Assessment & Plan Assessment & Plan (1) Essential hypertension: Code(s): I10 - Essential (primary) hypertension Category: Medical Plan: Continue on current blood pressure medication. Avoid salt intake and encourage healthy diet and regular exercise. (2) Cystitis: Code(s): N30.90 - Cystitis, unspecified without hematuria Category: Medical Plan: Patient having significant leukocytes and blood as well as positive for nitrites with urinalysis consistent with acute cystitis. He does not have any flank pain or suprapubic tenderness on exam. Plan to treat with Macrobid twice daily for 7 days and obtain culture as well as urine cytology due to hematuria. Advised patient to follow up with his urologist as well (3) Testicular pain: Code(s): N50.819 - Testicular pain, unspecified Category: Medical Qualifiers: Laterality: right Qualified Code(s): N50.811 - Right testicular pain Plan: Patient complaining of right-sided testicular pain significant pain 2 days ago that has since resolved. He does still have very mild pain. We did perform a genital exam and Tyler Bauman MA was present as a directory operator and patient consented to exam. There is no tenderness to the scrotum and no tenderness to bilateral testicles. There is no overlying erythema, skin changes, rash or any other abnormality that has appreciated on exam. There are no appreciated masses or abnormal lumps in the scrotum as well. I advised patient to continue to monitor the pain and if it persists or worsen to reach out to the office and consider for scrotal ultrasound for further evaluation. (4) Hematuria: Code(s): R31.9 - Hematuria, unspecified Category: Medical Plan: Patient having gross hematuria 2 days ago which he states has resolved. He does have hematuria on his urinalysis today plan for urine cytology for further evaluation. Advised patient to follow up with his urologist as well Plan The patient will be treated for a urinary tract infection with antibiotics, considering the presence of hematuria and testicular pain. Due to the patient's allergy to penicillin and interaction with losartan, an alternative antibiotic will be prescribed. A urine culture will be conducted to ensure the appropriate antibiotic is used, and adjustments will be made based on culture results. The patient is advised to maintain hydration and keep the genital area clean to prevent further infections. If symptoms persist or worsen, a follow-up with a urologist will be necessary. The patient is also scheduled for a sonogram of the bladder to further investigate the cause of symptoms. This note was constructed using voice recognition software. While every effort has been made to ensure accuracy and oncology social worker, still areas may have been included sometimes these areas may affect the content or meeting of the given symptoms. Total time spent caring for the patient today was 20 minutes. This includes time spent before the visit reviewing the chart, time spent during the visit, and time spent after the visit and documentation. Patient was informed and verbally consented to the use of an ambient scribe for clinic note documentation during this visit. Orders: Orders AMB Urinalysis Dipstick Today Z13.9 - Encounter for screening, unspecified Urine Cytology Today N30.90 - Cystitis, unspecified without hematuria, R31.9 - Hematuria, unspecified Urine Culture Today N30.90 - Cystitis, unspecified without hematuria Medications: New nitrofurantoin monohyd/m-cryst 100 mg must administer with a meal/food 100 mg PO Q12H 14 caps 0RF 7 days
[2025-01-10 13:41] VITALS: BP 158/74; PULSE 91; TEMP 36.3; O2SAT 96; BMI 33.5
== END 2025-01-10 14:23 | disposition home or self-care (01) ==
LOC: HO.HMCH 13:21
PROVIDERS: PCP Internal Medicine
DX: Z13.9 Encounter for screening, unspecified (principal)

== ENCOUNTER 2025-01-10 13:20 | Outpatient (REF) | payer MEDICARE, MEDICAID, SELFPAY | END 2025-01-10 13:21 | disposition home or self-care (01) | LOC: HO.LNP 13:20 | PROVIDERS: PCP Internal Medicine | DX: I10 Essential (primary) hypertension (principal); N30.91 Cystitis, unspecified with hematuria; N50.811 Right testicular pain | CPT/HCPCS: 81002; 87086; 87088; 87186; 88112; 99212 ==

== ENCOUNTER 2025-01-11 11:33 | Outpatient (REF) | payer MEDICARE, MEDICAID, SELFPAY ==
--- NOTE | ~2025-01-11 | US_ITS ---
CLINICAL HISTORY: N31.9 - Neuromuscular dysfunction of bladder, unspecified US Renal Comparison: None provided Findings: Right kidney normal size and echotexture, 12.5 cm length. Left kidney normal size and echotexture, 11.4 cm length. No hydronephrosis. Normal color Doppler. Urinary bladder is unremarkable. Prevoid volume 171 mL. Postvoid volume 97 mL. Bilateral ureteral jets are visualized. IMPRESSION: 1. Significant postvoid residual of 97 mL. This document has been electronically signed by: Nory Wooten MD on 01/12/2025 09:56:28
== END 2025-01-11 11:34 | disposition home or self-care (01) ==
LOC: HO.US 11:33
PROVIDERS: PCP Internal Medicine; Visit Provider Nurse Practitioner Family
DX: N31.9 Neuromuscular dysfunction of bladder, unspecified (principal); N40.1 Benign prostatic hyperplasia with lower urinary tract symptoms; R33.9 Retention of urine, unspecified
CPT/HCPCS: 76770

== ENCOUNTER → 2025-01-11 11:35 | Outpatient (BNV) | payer MEDICARE, MEDICAID, SELFPAY | PROVIDERS: PCP Internal Medicine; Visit Provider Radiology Diagnostic Radiology | DX: R33.8 Other retention of urine (principal) | CPT/HCPCS: 76770 ==

== ENCOUNTER 2025-01-17 06:02 | Outpatient (REF) | payer MEDICARE, MEDICAID, SELFPAY ==
[2025-01-17 06:21] LABS: MANUAL DIFF FLAG NO
[2025-01-17 07:35] LABS: Hematocrit 36.0 % (42.0-52.0); Hemoglobin 11.6 g/dl (14.0-18.0); Imm Gran Abs Auto 0.01 X10*3/uL (0.00-0.03); Imm Gran Pct Auto 0.2 % (0.0-0.4); Lymphocytes Absolute Auto 2.3 X10*3/uL (1.2-4.9); Mean Corpuscular HGB Conc 32.2 g/dl (31.0-36.0); Mean Corpuscular Hemoglobin 26.2 pg (27.0-33.0); Mean Corpuscular Volume 81.3 fL (80.0-98.0); NRBC Abs Auto 0.000 X10*3/uL (0.0-0.012); NRBC Pct Auto 0.0 /100WBC (0.0-0.2); Platelet Count 174 X10*3/uL (160-400); Red Blood Count 4.43 X10*6/uL (4.60-5.80); White Blood Count 5.9 X10*3/uL (4.8-10.8)
[2025-01-17 08:13] LABS: Alanine Aminotransferase 47 U/L (0-40); Albumin Level 4.5 g/dL (3.5-5.0); Alkaline Phosphatase 127 U/L (39-117); Anion Gap 10 (12-20); Aspartate Amino Transferase 39 U/L (5-37); Blood Urea Nitrogen 17 mg/dL (9-16); Calcium 9.2 mg/dL (8.4-10.2); Carbon Dioxide 30 mmol/L (22-29); Chloride 105 mmol/L (96-108); Cholesterol 142 mg/dL (<200); Estimated Glomerular Filt Rate > 60; HDL Cholesterol 39 mg/dL (>40); Iron 48 mcg/dL (45-160); Percent Iron Saturation 15 % (15-50); Potassium 4.4 mmol/L (3.3-5.1); Sodium 141 mmol/L (135-145); Total Iron Binding Capacity 330 mcg/dL (228-428); Total Protein 7.7 g/dL (6.5-8.0); Triglycerides 143 mg/dL (<150); Unsaturated Iron Binding 282 ug/dL
[2025-01-17 08:22] LABS: Prostate Specific Antigen 1.03 ng/mL (<0.05-4.0)
== END 2025-01-17 06:03 | disposition home or self-care (01) ==
LOC: HO.LAB 06:02
PROVIDERS: Nurse Practitioner Family; PCP Internal Medicine; Visit Provider Internal Medicine
DX: N40.1 Benign prostatic hyperplasia with lower urinary tract symptoms (principal); R33.9 Retention of urine, unspecified; Z80.42 Family history of malignant neoplasm of prostate; D64.9 Anemia, unspecified; E78.5 Hyperlipidemia, unspecified; I10 Essential (primary) hypertension
CPT/HCPCS: 36415; 80053; 80061; 83540; 84153; 85025

== ENCOUNTER 2025-03-20 13:46 | Outpatient (AMB) | payer MEDICARE, MEDICAID, SELFPAY ==
--- NOTE | 2025-03-20 13:49 | A.OFFVIS_ITS ---
Intake Visit Reasons: 6 months with imaging, PSA, and PVR Intake Note: Patient is present for 6M/IMAGIMG/PSA/PVR Urology Medication:TADALAFIL Antibiotic Allergy:PENICILLIN V Blood Thinner:NONE TODAY'S PVR:36ML'S Active Directory Administrator Required: No Allergies penicillin V Allergy (Intermediate, Verified 03/20/25 14:20) hives naloxone Adverse Reaction (Intermediate, Uncoded 03/20/25 14:20) excessive night sweats Medication List - Last Reconciled 03/20/25 by BROOKE Clements- alfuzosin ER 10 mg PO BEDTIME 30 days alprazolam 0.5 mg PO DAILY PRN 1 day atorvastatin 20 mg PO BEDTIME 90 days bethanechol chloride 50 mg PO TID 90 days buprenorphine HCl 8 mg sublingual TID 30 days clotrimazole 1% 1 appl topical BID 15 days [foot brace left As directed] gabapentin 800 mg PO .every 6 hours 30 days ibuprofen 800 mg PO Q8H PRN losartan 25 mg PO DAILY 90 days omeprazole 20 mg PO DAILY 90 days sildenafil 100 mg PO DAILY PRN 30 days walker As directed [wheelchair As directed] HPI Comments Details: Brandon is a pleasant 50-year-old Amharic-speaking male patient of Dr. Durham was accompanied by his at today's office visit. He has a past medical history of depression, H pylori, lumbar pain, lymphadenopathy, headache, dysphagia, dyslipidemia, insomnia, neuropathy, and opioid use disorder in remission. He presents to the office today for follow-up of his erectile dysfunction, family history of prostate, nephrolithiasis, and lower urinary tract symptoms. In discussion with the patient and his today he reports compliance with bethanechol and tadalafil as prescribed. He reports no improvement in lower urinary tract symptoms. He continues to experience urinary urgency, urinary frequency, and urge incontinence. Also continues to experience issues with erectile dysfunction despite compliance with tadalafil as prescribed. He is enquiring prescription for Viagra as he felt this was more helpful. Recent retroperitoneal ultrasound results were reviewed 01/26 bilateral kidneys are normal in size and echotexture. No nephrolithiasis or hydronephrosis noted. The urinary bladder is unremarkable. Postvoid residual of 97 mL. Prostate volume of 21 mL. He does discuss his previous prostate procedure with Dr. Grewal many years ago. He has a longstanding history of lower urinary tract symptoms with trial of multiple medications in the past that he has not found helpful. We did discuss trial of InterStim however he discusses his reluctancy. All questions were answered to the best of my ability. PSAs are as follows: 12/26 0.6, 01/26 1.0 In office urinalysis results reviewed with the patient and his today. PVR 36 mL. He otherwise denies hematuria, dysuria, foul smelling urine, flank pain, fever, and or chills. [facility] Medical History Family history of prostate cancer Mild major depression Chronic foot ulcer Helicobacter pylori (H. pylori) Lumbar pain Abnormal barium swallow Chest pain Lymphadenopathy Headache Dysphagia Wound of left foot Dyslipidemia Urinary incontinence Insomnia Back pain Neuropathy Opioid use disorder Surgical History Hx of colonoscopy History of esophagogastroduodenoscopy (EGD) History of cystoscopy History of carpal tunnel surgery of left wrist History of prostate surgery Hx of prostate biopsy Hx of hernia repair Family History Father Prostate cancer Mother Diabetes mellitus Essential hypertension Pure hypercholesterolemia Social History Household Members: Spouse Housing: House Do you presently have visiting nurse or other home services: No Alcohol intake: never Patient Tobacco Use Status: Former Tobacco user Cigarette Packs Per Day: 1 e-Cigarette/Vaping Use: Former Use Second Hand Smoke Exposure: No Substance Use Type: Marijuana service: No Current occupational status: disabled Cognitive needs: Yes (cane) Hearing needs: No Vision needs: No Review of Systems Const Reports no additional complaints Eyes Reports no additional complaints ENT Reports no additional complaints Card Reports as per HPI Resp Reports no additional complaints GI Reports as per HPI Reports as per HPI Musc Reports as per HPI Neuro Reports as per HPI Psych Reports as per HPI Endo Reports as per HPI Physical Exam Const General: cooperative, healthy appearing, comfortable, no acute distress, well developed, alert and awake Orientation/consciousness: patient oriented x3 Limitations: ambulation with cane HEENT Head: Yes normal to inspection, Yes normocephalic and Yes atraumatic Ears: hearing grossly normal bilaterally Eyes General: appearance normal, both eyes and all related structures Neck Neck: Yes normal visual inspection and Yes trachea midline Chest Chest palpation & inspection: normal inspection of the chest Resp Effort & Inspection: normal respiratory effort and able to speak in complete sentences Cardio Rate: regular rate GI Inspection: Yes normal to inspection General: Yes no CVA tenderness Back/Spine/Pelvis Back: no CVA tenderness Skin General skin exam: no rashes or lesions noted Neuro General: patient oriented x3 Extrem General: Yes normal to inspection Psych Appearance: grossly normal and well kempt Mental Status: mental status grossly normal Speech and movement: Normal speech and movement present and Clear speech present Affect: normal affect Attitude: cooperative Thought process: Normal thought process present Thought content: Normal thought content present Insight: Fair insight present (Psych) Judgement: Fair judgement present (Psych) Office Procedures Post Void Residual Post Residual Void Post Void Residual (PVR): 36 [id number] Void Residual by ultrasound Results Reviewed Results Reviewed: Date of Service: 01/11/25 Procedure(s): US retroperitoneal comp Findings: Right kidney normal size and echotexture, 12.5 cm length. Left kidney normal size and echotexture, 11.4 cm length. No hydronephrosis. Normal color Doppler. Urinary bladder is unremarkable. Prevoid volume 171 mL. Postvoid volume 97 mL. Bilateral ureteral jets are visualized. IMPRESSION: 1. Significant postvoid residual of 97 mL. Assessment & Plan Assessment & Plan (1) Urinary incontinence: Code(s): R32 - Unspecified urinary incontinence Category: Medical (2) Incomplete emptying of bladder due to benign prostatic hyperplasia: Code(s): N40.1 - Benign prostatic hyperplasia with lower urinary tract symptoms; R33.9 - Retention of urine, unspecified Category: Medical (3) Neurogenic urinary bladder disorder: Code(s): N31.9 - Neuromuscular dysfunction of bladder, unspecified Category: Medical (4) Erectile dysfunction: Code(s): N52.9 - Male erectile dysfunction, unspecified Category: Medical Plan In office urinalysis results reviewed with the patient today; as noted above. PVR 36 mL. Start alfuzosin as discussed and prescribed. Continue bethanechol. Stop tadalafil. Start PRN Viagra prescription provided. We did discussed potential causes of lower urinary tract symptoms as well as erectile dysfunction; we discussed further treatment options and risks and benefits of these treatment options. We did discuss InterStim; information provided. We discussed attempting to double void to assist with bladder emptying. Recent retroperitoneal ultrasound results reviewed with the patient today. Recent PSA results reviewed with the patient today; as noted above. All questions were answered. Follow-up in 1-3 months with PVR; or sooner with any issues, concerns, and or questions. Medications: New sildenafil administer 60 minutes before intended activity [id number] [facility] GroupGDRX Member [id number] 100 mg PO DAILY PRN 12 tabs 1RF sexual activity 30 days N52.9 - Male erectile dysfunction, unspecified alfuzosin ER Take before bedtime 10 mg PO BEDTIME 30 tabs 1RF 30 days N32.0 - Bladder- neck obstruction, N40.1 - Benign prostatic hyperplasia with lower urinary tract symptoms, R33.9 - Retention of urine, unspecified, R35.1 - Nocturia, R39.12 - Poor urinary stream Discontinued nitrofurantoin monohyd/m-cryst 100 mg must administer with a meal/food Discontinued Reason: Doctor's Order 100 mg PO Q12H 7 days 14 caps 0RF tadalafil Discontinued Reason: Doctor's Order 10 mg PO DAILY 90 days 90 tabs 1RF Bladder Stability N40.1 - Benign prostatic hyperplasia with lower urinary tract symptoms, R33.9 - Retention of urine, unspecified Patient Instructions: The patient had an opportunity to ask questions regarding the treatment plan. All questions were answered. Physical exam, labs, and imaging were discussed and reviewed in detail. As well as risks, benefits, and discussion of treatment choices. No major barriers to understanding were identified. The patient expressed understanding and agreement with the above treatment plan. The patient was made aware they should contact our office by phone for worsening of their current condition, the appearance of new symptoms, or with any questions or concerns. Compliance is encouraged with any medications and follow up testing that is ordered. It is a privilege to be allowed the opportunity to participate in? your urological care.? Again, if you have any questions or concerns If you have any questions or concerns please do not hesitate to contact me. The office is [phone]. This note is constructed using voice recognition software. While every effort has been made to ensure accuracy cushion mat maker errors may have been included. Yours sincerely, BROOKE Clements-BC Coding Level of Care Code Est Pt Level 4 (34101) Complex EM visit Add On G2211 Diagnoses Urinary incontinence R32 Incomplete emptying of bladder due to benign prostatic hyperplasia N40.1; R33.9 Neurogenic urinary bladder disorder N31.9 Erectile dysfunction N52.9 CPT Codes Post Residual Void - PVR CPT Code: 90097-Hqrg Void Residual by ultrasound ([id number])
== END 2025-03-20 14:37 | disposition home or self-care (01) ==
LOC: HO.HUSH 13:47
PROVIDERS: PCP Internal Medicine; Visit Provider Nurse Practitioner Family
DX: R32 Unspecified urinary incontinence (principal); N40.1 Benign prostatic hyperplasia with lower urinary tract symptoms; R33.9 Retention of urine, unspecified; N31.9 Neuromuscular dysfunction of bladder, unspecified; N52.9 Male erectile dysfunction, unspecified
CPT/HCPCS: 99214; G2211

== ENCOUNTER → 2025-03-20 13:46 | Outpatient (BNVA) | payer MEDICARE, MEDICAID, SELFPAY | PROVIDERS: PCP Internal Medicine; Visit Provider Nurse Practitioner Family | DX: N52.9 Male erectile dysfunction, unspecified (principal); N31.9 Neuromuscular dysfunction of bladder, unspecified; N40.1 Benign prostatic hyperplasia with lower urinary tract symptoms; R33.9 Retention of urine, unspecified; R32 Unspecified urinary incontinence | CPT/HCPCS: 51798; 99212 ==

== ENCOUNTER 2025-03-21 15:40 | Outpatient (AMB) | payer MEDICARE, MEDICAID, SELFPAY ==
[2025-03-21 15:44] VITALS: BP 130/80; PULSE 80; RESP 18; TEMP 36.3; O2SAT 93; BMI 34.6
--- NOTE | 2025-03-21 15:44 | MHC.PC.OV ---
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: No Accompanied by: Allergies penicillin V Allergy (Intermediate, Verified 03/21/25 15:45) hives naloxone Adverse Reaction (Intermediate, Uncoded 03/20/25 14:20) excessive night sweats Tobacco use date assessed: 03/21/25 Dental Screening Dental Screen Date: 03/21/25 Did you have a dental visit in the last 12 months?: Yes Did you have a dental problem in the last 6 months where you did not have access to dental care?: No Was dental information given to patient?: Patient has dentist HPI HPI Comments History of Present Illness Details This is a 50-year-old male with hypertension, mild major depression and severe opiate dependence in agonist therapy that comes accompanied by complaining of right leg pain that has been present on and off for the past year. He will have an ultrasound to rule out a DVT. The leg also looks red, swollen warmth most likely due to cellulitis and I will start him on antibiotics. Depression stable. On Suboxone for his opiate dependence. Blood pressure well controlled with medications. [facility] Medical History Family history of prostate cancer Mild major depression Chronic foot ulcer Helicobacter pylori (H. pylori) Lumbar pain Abnormal barium swallow Chest pain Lymphadenopathy Headache Dysphagia Wound of left foot Dyslipidemia Urinary incontinence Insomnia Back pain Neuropathy Opioid use disorder Surgical History Hx of colonoscopy History of esophagogastroduodenoscopy (EGD) History of cystoscopy History of carpal tunnel surgery of left wrist History of prostate surgery Hx of prostate biopsy Hx of hernia repair Family History Father Prostate cancer Mother Diabetes mellitus Essential hypertension Pure hypercholesterolemia Social History Household Members: Spouse Housing: House Do you presently have visiting nurse or other home services: No Alcohol intake: never Patient Tobacco Use Status: Former Tobacco user Cigarette Packs Per Day: 1 e-Cigarette/Vaping Use: Former Use Second Hand Smoke Exposure: No Substance Use Type: Marijuana service: No Current occupational status: disabled Cognitive needs: Yes (cane) Hearing needs: No Vision needs: No Questionnaire Thrive Questionnaire Date Thrive assessed: 01/03/25 I am a: Patient What is your living situation today?: I have a steady place to live Within the past 12 months, did the food you bought not last and you didn't have the money to get more?: Never true Within the past 12 months, did you worry whether your food would run out before you got money to buy more?: Never true Do you have trouble paying for medicines?: No Do you have trouble getting transportation to medical appointments?: No Do you have trouble paying your heating and electricity bill?: No Do you have trouble taking care of your child, family member or friend?: No Do you have trouble with day-to-day activities such as bathing, preparing meals, shopping, managing finances, etc.?: Yes Are you currently unemployed and looking for a job?: No Are you interested in more education?: No Please select the resources that you would like help with: None Currently or been in a relationship where the following occur: I choose not to answer THRIVE Score: 0 NALLELY-7 AMB Questionnaire NALLELY-7 Date NALLELY - 7 assessed: 01/10/25 Source: Developed by Drs. Jorge Luis Parada, Vanna Williamson, Alex Javier and colleagues, with an educational christian from [employer]. Review of Systems Const All systems reviewed & are unremarkable except as noted in HPI and below Card Denies chest pain at rest, Denies chest pain with activity, Denies edema, Denies irregular heart rhythm, Denies claudication, Denies dyspnea, Denies dyspnea on exertion, Denies orthopnea, Denies paroxysmal nocturnal dyspnea and Denies slow heart rate Resp Denies cough, Denies dyspnea and Denies dyspnea on exertion GI Denies abdominal pain, Denies change in bowel habits, Denies excessive flatus, Denies nausea and Denies vomiting Denies urinary hesitancy, Denies urinary incontinence and Denies urinary urgency Neuro Denies lack of coordination Physical exam (Primary Care) Vital Signs: Last Vital Signs Temp 97.3 F 03/21/25 15:44 Pulse 80 03/21/25 15:44 Resp 18 03/21/25 15:44 BP 130/80 03/21/25 15:44 Pulse Ox 93 03/21/25 15:44 Oxygen Delivery Method Room Air 03/21/25 15:44 BMI result Body Mass Index 34.6 Tobacco/Smoking Status: Tobacco use Status Tobacco use date assessed 03/21/25 03/21/25 15:51 Patient Tobacco Use Status Former Tobacco user 03/21/25 15:51 e-Cigarette/Vaping Use Former Use 03/21/25 15:51 Thrive Assessment: Date of Thrive Assessment Date Thrive assessed 01/03/25 03/21/25 15:51 Currently or been in a relationship where the following occur: I choose not to answer Resp Effort & Inspection: normal respiratory effort Auscultation: clear to auscultation bilaterally Cardio Jugular venous distension: no JVD Rate: regular rate Rhythm: regular rhythm Heart sounds: S1 normal heart sound present and S2 normal heart sound present Extrem General: Yes full ROM Immunizations Tenivac (PF) 5 Lf unit-2 Lf unit/0.5 mL intramuscular syringe Performing Provider: Gertrudis Culver MD [facility] Administered by: SHEYLA Amezcua on 03/21/25 16:15 Dose Route Admin Location Dispensed Lot Number Expiration Date [employer] 0.5 mL IM Right Deltoid 0.5 mL [id number] 10/03/26 65396-999-39 [employer] Total Dispensed Waste 0.5 mL 0 % VIS Given Date VIS Provided VIS Publication Date 03/21/25 Single Vaccine 21 Eligibility Eligibility Date Funding Source Not [facility] Eligible 03/21/25 Private Coding Level of Care Code Est Pt Level 4 (41297) Complex EM visit Add On G2211 Diagnoses Essential hypertension I10 Mild major depression F32.0 Severe opioid dependence in sustained remission on maintenance therapy F11.21 Right leg pain M79.604 Cellulitis of right leg L03.115 Time Spent (min) 21 Assessment & Plan Assessment & Plan (1) Essential hypertension: Code(s): I10 - Essential (primary) hypertension Category: Medical (2) Mild major depression: Code(s): F32.0 - Major depressive disorder, single episode, mild Category: Medical (3) Severe opioid dependence in sustained remission on maintenance therapy: Comment: He has been doing better on tablets. He is happy to be off the shot. He is continuing counseling. Code(s): F11.21 - Opioid dependence, in remission Category: Medical (4) Right leg pain: Code(s): M79.604 - Pain in right leg Category: Medical (5) Cellulitis of right leg: Code(s): L03.115 - Cellulitis of right lower limb Category: Medical Plan Continue current meds. Start antibiotics. Order ultrasound of the leg. Orders: Orders US venous duplex LE RT Today M79.604 - Pain in right leg Lipid Panel 6 Months E78.5 - Hyperlipidemia, unspecified Comprehensive [place]. Panel Fast 6 Months I10 - Essential (primary) hypertension Vitamin D 25-OH Total 6 Months E55.9 - Vitamin D deficiency, unspecified Td Immunization Today Z23 - Encounter for immunization
== END 2025-03-21 16:54 | disposition home or self-care (01) ==
PROVIDERS: PCP Internal Medicine; Visit Provider Internal Medicine
DX: I10 Essential (primary) hypertension (principal); F32.0 Major depressive disorder, single episode, mild; F11.21 Opioid dependence, in remission; M79.604 Pain in right leg; L03.115 Cellulitis of right lower limb; Z23 Encounter for immunization

== ENCOUNTER 2025-03-21 16:33 | Outpatient (REF) | payer MEDICARE, MEDICAID, SELFPAY ==
--- NOTE | ~2025-03-21 | US_ITS ---
CLINICAL HISTORY: M79.604 - Pain in right leg --- Additional Notes or Special Instructions: rule out dvt Venous duplex ultrasound right lower extremity Comparison: US/SR - US VENOUS DUPLEX LE RT - 08/04/23 16:57 EST Findings: The visualized deep veins are fully compressible with normal Doppler color flow and spectral tracings. Peroneal vein was not visualized. There is a 2.5 cm x 0.6 cm x 1.3 cm popliteal cyst with septation. IMPRESSION: 1. Negative for right lower extremity deep vein thrombosis. This document has been electronically signed by: Aliyah Sargent MD on 03/21/2025 17:44:24
== END 2025-03-21 16:34 | disposition home or self-care (01) ==
LOC: HO.US 16:33
PROVIDERS: PCP Internal Medicine; Visit Provider Internal Medicine
DX: Z00.01 Encounter for general adult medical examination with abnormal findings (principal); Z23 Encounter for immunization; M79.604 Pain in right leg; I10 Essential (primary) hypertension; E78.5 Hyperlipidemia, unspecified; F32.0 Major depressive disorder, single episode, mild; F11.21 Opioid dependence, in remission; L03.115 Cellulitis of right lower limb; Z87.891 Personal history of nicotine dependence
CPT/HCPCS: 90471; 90714; 93971; 99212

== ENCOUNTER → 2025-03-21 16:37 | Outpatient (BNV) | payer MEDICARE, MEDICAID, SELFPAY | PROVIDERS: PCP Internal Medicine; Visit Provider Specialist | DX: M79.604 Pain in right leg (principal) | CPT/HCPCS: 93971 ==